=== PATIENT | female | born 1995 | race Caucasian/White ===

== ENCOUNTER 2020-02-18 15:55 | Outpatient (CLI) | payer OTHER, SELFPAY ==
--- NOTE | ~2020-02-18 | US_ITS ---
EXAMINATION: US OB <= 14 weeks fetus EXAM DATE: 02/18/2020 16:35 INDICATION: Dating and confirm viability. First trimester. TECHNIQUE: Pelvic obstetrical transabdominal sonogram was performed by a technologist. There are mu ltiple grayscale and Doppler images available for interpretation. There are no earlier studies of th is gestation for comparison. FINDINGS: Uterus measures 10.6 x 6.5 x 7.7 cm. There is intrauterine gestation sac. pole with heart rate confirmed at 178 beats per minute. The 3.2 cm crown-rump length corresponds to estimated gestational age by ultrasound of 10 weeks 1 day, estimated date of confinement 09/14/2020. Yolk sac is identified. There was suspected to be low-lying placenta without subchorionic hemorrhage. Atten tion to this on follow-up. Ovaries are not identified, no adnexal masses. IMPRESSION: Live intrauterine gestation, age by CRL of 10 weeks 1 day. Low-lying chorion, can be ree valuated in second trimester. Reviewed, dictated and finalized at location A. IMPRESSION: Live intrauterine gestation, age by CRL of 10 weeks 1 day. Low-lyi ng chorion, can be reevaluated in second trimester.
== END 2020-02-18 15:56 | disposition home or self-care (01) ==
LOC: ANHIMG 15:59
PROVIDERS: PCP Family Medicine; Visit Provider Student in an Organized Health Care Education/Training Program
DX: O36.80X0 Pregnancy with inconclusive fetal viability, not applicable or unspecified (principal); O44.41 Low lying placenta NOS or without hemorrhage, first trimester; Z3A.10 10 weeks gestation of pregnancy
CPT/HCPCS: 76801

== ENCOUNTER 2020-04-14 21:38 | Emergency (ER) | payer OTHER, SELFPAY ==
[2020-04-14 21:38] VITALS: BP 131/70; PULSE 109; RESP 16; TEMP 36.6; O2SAT 100
[2020-04-14 22:12] LABS: Add Urine Microscopic? YES; Appearance Urine Clear (Clear); Bilirubin Urine Negative (Negative); Blood Urine Negative (Negative); Color Urine Yellow (Yellow); Glucose Urine UA Negative (Negative); Ketones Urine Trace (Negative); Leukocyte Esterase Ur Trace LEU/UL (Negative); Nitrate Urine Negative (Negative); Protein Urine Trace (Negative); Specific Grav Ur 1.015 (1.010-1.020); Urobilinogen Urine 0.2 mg/dL (0.2-1.0); pH Urine 7.5 (5.0-8.0)
[2020-04-14 22:18] LABS: Amorphous Sediment Urine Moderate; Bacteria Urine Trace /hpf; RBC Urine 0-2 /hpf (0-2); Squamous Epithelial Cell Urine Few /hpf (Few)
[2020-04-14 22:19] LABS: Pregnancy On Board Control Positive; Specific Gravity Ur 1.015 (1.010-1.035); Urine Pregnancy Test Positive
--- NOTE | 2020-04-14 22:30 | ED.GENADULT ---
HPI - General Adult General Chief complaint: Back Pain/Injury Stated complaint: L back/side pain Time Seen by Provider: 04/14/20 22:32 Source: patient Mode of arrival: ambulatory Limitations: no limitations History of Present Illness HPI narrative: A 24-year-old female patient 18 weeks 1 para 1 is here in the ER with chief complaints of experiencing some vaginal itching and burning after sexual intercourse a week ago. She has had some urinary symptoms but has not noted any blood or is not reporting any fevers chills or nausea or vomiting. She has not noticed any vaginal discharge or bleeding. patient states that she walked to a significant distance this evening to her friend's house and back and around 8:00 p.m. tonight started experiencing pain in the left side mostly in the lower of back and around into her left groin. The pain was not associated with any vomiting or any radiation into the groin area. The pain has been persistent and the patient did drive herself here. She did not take any medication at home to relieve the pain. Patient's OB history has been unremarkable till now and she is under care of a activity specialist at [facility]. Related Data Home Medications Medication Instructions Recorded Confirmed vits 75-iron 28 mg-folic 1 pkg PO DAILY 02/04/20 04/14/20 acid 800 mcg-omega-3 oral combo pack Allergies Allergy/AdvReac Type Severity Reaction Status Date / Time No Known Allergies Allergy Verified 02/04/20 10:16 Review of Systems Review of Systems: All systems reviewed & are unremarkable except as noted in HPI and below Constitutional: Constitutional: Reports as per HPI, Denies chills, Denies fatigue, Denies fever(s) and Denies weakness Cardiovascular: Cardiovascular: Denies chest pain Respiratory: Respiratory: Denies chest congestion, Denies dyspnea and Denies wheezing Gastrointestinal: Gastrointestinal: Denies abdominal pain, Reports constipation (Last BM 1 day ago.), Denies diarrhea, Denies nausea and Denies vomiting Genitourinary: Genitourinary: Denies abnormal vaginal bleeding, Denies hematuria, Denies nocturia, Denies dysuria, Denies pelvic pain, Denies urinary incontinence and Denies vaginal discharge Musculoskeletal: Musculoskeletal: Reports no additional musculoskeletal complaints Integumentary/Breasts: Skin/Breast: Reports system reviewed and no additional complaints, except as docu Psychiatric: Psychiatric: Reports no additional psychiatric complaints PMFSH Past Medical History Medical History (Updated 04/14/20 @ 23:01 by Belinda Beaver MD) Anxiety Depression Surgical History Surgical History (Updated 04/14/20 @ 22:52 by Belinda Beaver MD) No history of previous surgery Social History Social History Smoking status: Current every day smoker Alcohol intake: never Substance use: current Substance use type: marijuana Exam Const: General: healthy appearing, no acute distress and alert; No ill appearing Nutritional Appearance: well nourished Orientation/consciousness: patient oriented x3 Limitations: No physical limitations HENMT: Head: normal to inspection Eyes: Conjunctivae: conjunctivae normal Pupils: Equal, round and reactive pupils present EOM: EOMs intact bilaterally Neck: Neck: normal visual inspection Chest: Chest palpation & inspection: normal inspection of the chest and no tenderness Resp: Effort & Inspection: normal respiratory effort, no retractions and no use of accessory muscles Auscultation: clear to auscultation bilaterally and no wheezes Cardio: Rate: regular rate Rhythm: regular rhythm Heart sounds: no murmurs GI: GI Palp: Yes Soft to palpation and No Tenderness to palpation present (GI) Auscultation: normal bowel sounds Other: minimal tenderness of the left abdominal wall. : General: Yes bladder normal to palpation and Yes no CVA tenderness Ot
[2020-04-14] MEDS: ACETAMINOPHEN 325 MG TABLET 650 MG PO (22:47)
[2020-04-14 23:02] VITALS: PULSE 90; RESP 14; O2SAT 100
== END 2020-04-14 23:03 | disposition home or self-care (01) ==
PROVIDERS: Emergency Provider Emergency Medicine; PCP Family Medicine
DX: R10.9 Unspecified abdominal pain (principal); F41.9 Anxiety disorder, unspecified
CPT/HCPCS: 81001; 81025; 87491; 87591; 99283; 99284; A9270

== ENCOUNTER 2020-04-15 05:44 | Emergency (ER) | payer OTHER, SELFPAY ==
--- NOTE | ~2020-04-15 | US_ITS ---
EXAMINATION: US renal BI, US pelvic limited DATE: 04/15/2020 08:21 INDICATION: Left flank pain during . TECHNIQUE: Multiple ultrasound grayscale images of the kidneys, bladder and bilateral ovaries were ob tained. COMPARISON: None. FINDINGS: The right kidney measures 12.6 x 5.2 x 6.3 cm. The left kidney measures 11.6 x 7.4 x 5.5 cm. The kidn eys demonstrate normal echogenicity. There is mild bilateral hydronephrosis. Normal arterial resistiv e indices at both kidneys measuring 0.56-0.66 at the right kidney and 0.62-0.68 at the left kidney. N o stones identified. The bladder is normal with bilateral ureteral jets on color Doppler. No free flu id in the pelvis. The right ovary measures 3.5 x 1.3 x 2.5 cm and the left ovary measures 4.4 x 2.2 x 3.6 cm. Vascular flow is identified at both ovaries on color Doppler. IMPRESSION: 1. Mild bilateral hydronephrosis. 2. Normal bilateral ovaries. Reviewed, dictated and finalized at location A. IMPRESSION: 1. Mild bilateral hydronephrosis. 2. Normal bilateral ovaries.
[2020-04-15 05:54] VITALS: BP 123/76; PULSE 80; RESP 18; TEMP 36.6; O2SAT 100
--- NOTE | 2020-04-15 06:07 | ED.GENADULT ---
HPI - General Adult General Chief complaint: Abdominal Pain <Belinda Beaver MD - Last Filed: 04/15/20 06:48> Stated complaint: Left Side Pain <Belinda Beaver MD - Last Filed: 04/15/20 06:48> Time Seen by Provider: 04/15/20 06:15 <Belinda Beaver MD - Last Filed: 04/15/20 06:48> History of Present Illness HPI narrative: 24-year-old female patient 18 weeks , 1 para 1 returns again this morning with same complaint of pain in the back that started yesterday. She was seen last night and her urinalysis was clear. She was given a tablet of Tylenol and apparently for a brief while she felt better but then continued to have pain. She denies any fever or chills or vomiting associated with the pain. She states that the pain was in the left flank and for a brief while it radiated to the right back area and then is mostly in the left side. Patient points out to the general left side of her abdomen and back and also finds it more comfortable to lay on the right side. She denies any vaginal bleeding or discharge. She denies any urinary symptoms at this time. The pain has been an ache and so has been persistent all night long compared yesterday the patient admitted to walking a long distance of prior to development of pain however she has been resting all night long. <Belinda Baever MD - Last Filed: 04/15/20 06:48> Related Data Home medications: Home Medications Medication Instructions Recorded Confirmed vits 75-iron 28 mg-folic 1 pkg PO DAILY 02/04/20 04/15/20 acid 800 mcg-omega-3 oral combo pack <Belinda Beaver MD - Last Filed: 04/15/20 06:48> Allergies/adverse reactions: Allergies Allergy/AdvReac Type Severity Reaction Status Date / Time No Known Allergies Allergy Verified 02/04/20 10:16 <Belinda Beaver MD - Last Filed: 04/15/20 06:48> Review of Systems Review of Systems: All systems reviewed & are unremarkable except as noted in HPI and below <Belinda Beaver MD - Last Filed: 04/15/20 06:48> Constitutional: Constitutional: Denies chills, Denies fatigue and Denies fever(s) <Belinda Beaver MD - Last Filed: 04/15/20 06:48> ENT: Denies dizziness <Belinda Beaver MD - Last Filed: 04/15/20 06:48> Cardiovascular: Cardiovascular: Denies chest pain <Belinda Beaver MD - Last Filed: 04/15/20 06:48> Respiratory: Respiratory: Denies cough and Denies dyspnea <Belinda Beaver MD - Last Filed: 04/15/20 06:48> Gastrointestinal: Gastrointestinal: Denies abdominal pain, Denies bloating, Denies constipation, Denies diarrhea, Denies nausea and Denies vomiting <Belinda Beaver MD - Last Filed: 04/15/20 06:48> Genitourinary: Genitourinary: Denies abnormal vaginal bleeding, Denies hematuria, Denies nocturia, Denies dysuria, Denies pelvic pain, Reports flank pain, Denies urinary incontinence and Denies vaginal discharge <Belinda Beaver MD - Last Filed: 04/15/20 06:48> Neurologic: Denies weakness <Belinda Beaver MD - Last Filed: 04/15/20 06:48> Allergic/Immunologic: Allergic/Immunologic: Reports no additional allergic/immunologic complaints <Belinda Beaver MD - Last Filed: 04/15/20 06:48> PMF Past Medical History Medical History: Medical History (Updated 04/15/20 @ 08:49 by Leo Mcnulty MD) Anxiety Depression <Belinda Beaver MD - Last Filed: 04/15/20 06:48> Surgical History Surgical History: Surgical History (Updated 04/14/20 @ 22:52 by Belinda Beaver MD) No history of previous surgery <Belinda Beaver MD - Last Filed: 04/15/20 06:48> Social History Social History: Social History (Updated 04/15/20 @ 06:35 by Belinda Beaver MD) Smoking status: Current some day smoker Alcohol intake: never Substance use: current Substance use type: marijuana <Belinda Beaver MD - Last Filed: 04/15/20 06:48> Exam Const: General: healthy appearing and alert <Belinda Beaver MD - Last Filed: 04/15/20 06:48> Nutritional Appearance: well nourished <Belinda
[2020-04-15 06:30] LABS: Add Urine Microscopic? YES; Appearance Urine Sl Cloudy (Clear); Bilirubin Urine Negative (Negative); Blood Urine Negative (Negative); Color Urine Yellow (Yellow); Glucose Urine UA Negative (Negative); Ketones Urine Negative (Negative); Leukocyte Esterase Ur Negative (Negative); Nitrate Urine Negative (Negative); Protein Urine Negative (Negative); Urobilinogen Urine 0.2 mg/dL (0.2-1.0)
[2020-04-15 06:30] LABS: Basophils Absolute Auto 0.04 K/mm3 (0.00-0.10); Basophils Percent Auto 0.3 % (0.0-1.0); Eosinophils Percent Auto 0.7 % (1.0-6.0); Hematocrit 34.5 % (35.0-49.0); Immature Granulocyte Absolute 0.08 K/mm3 (0.00-0.00); Immature Granulocyte Percent A 0.6 % (0.0-0.0); Lymphocytes Absolute Auto 1.74 K/mm3 (1.10-4.50); Lymphocytes Percent Auto 12.6 % (18.0-42.0); Mean Corpuscular HGB Conc 34.8 g/dL (32.0-36.0); Mean Corpuscular Volume 80.4 fL (78.0-102.0); Mean Platelet Volume 9.5 fl (9.2-11.8); Monocytes Absolute Auto 0.85 K/mm3 (0.10-0.90); Monocytes Percent Auto 6.2 % (2.0-11.0); Neutrophils Percent Auto 79.6 % (50.0-70.0); Platelet Count Result 245 K/mm3 (150-420); Red Blood Count 4.29 M/mm3 (4.20-5.40); Red Cell Distribution Width 14.4 % (11.6-14.4); White Blood Count 13.8 K/mm3 (4.8-10.8)
[2020-04-15 06:41] LABS: Amorphous Sediment Urine Moderate; Bacteria Urine 1+ /hpf; RBC Urine 0-2 /hpf (0-2); Squamous Epithelial Cell Urine Few /hpf (Few); WBC Urine 0-3 /hpf (0-3)
[2020-04-15 06:46] LABS: Alanine Aminotransferase 13 U/L (14-59); Alkaline Phosphatase 49 U/L (46-116); Anion Gap 10.3 mmol/L (7-16); Aspartate Amino Transferase 15 U/L (15-37); Bilirubin,Total 0.1 mg/dL (0.00-1.00); Blood Urea Nitrogen 9 mg/dL (7-18); Calcium 8.8 mg/dL (8.5-10.1); Carbon Dioxide 28 mmol/L (21-32); Chloride 100 mmol/L (98-108); Estimated CRCL calculation 76 ml/min; Estimated Glomerular Filt Rate > 60; Glucose 106 mg/dL (70-99); Osmolality Calculated 278 mOsm/kg (285-295); Potassium 3.3 mmol/L (3.5-5.1); Sodium 135 mmol/L (136-145); Total Protein 6.4 g/dL (6.4-8.2)
--- NOTE | 2020-04-15 06:47 | PC.NURSE ---
Pt. offered HIV testing, pt. refused and refusal form signed.
[2020-04-15] MEDS: POTASSIUM BICARBONATE 25 MEQ TABEF 50 MEQ PO (07:34)
[2020-04-15 08:55] VITALS: BP 125/75; PULSE 75; RESP 18; TEMP 36.6; O2SAT 100
== END 2020-04-15 09:10 | disposition home or self-care (01) ==
PROVIDERS: Emergency Medicine; Emergency Provider Emergency Medicine; PCP Family Medicine
DX: R10.9 Unspecified abdominal pain (principal)
CPT/HCPCS: 36415; 76775; 76857; 80053; 81001; 85025; 99283; 99284; A9270

== ENCOUNTER 2020-05-15 13:44 | Observation (INO) | payer OTHER, SELFPAY ==
--- NOTE | ~2020-05-15 | XR_ITS ---
EXAMINATION: XR chest 1V portable DATE: 05/15/2020 14:42 INDICATION: Shortness of breath. TECHNIQUE: A single frontal view of the chest was obtained. COMPARISON: None. FINDINGS: The chest demonstrates clear lungs without pneumonia, pleural effusion, or pneumothorax. Th e heart size is normal. IMPRESSION: 1. No acute cardiopulmonary disease. Reviewed, dictated and finalized at location A.
--- NOTE | 2020-05-15 14:00 | PC.NURSE ---
FHT's 170 BPM, Maternal HR 142.
--- NOTE | 2020-05-15 14:06 | PC.NURSE ---
nigel perez from OB came to eval pt . FHT's 165-170, strong.
[2020-05-15 14:07] VITALS: BP 104/73; PULSE 130; RESP 24; TEMP 38.1; O2SAT 99
--- NOTE | 2020-05-15 14:10 | ED.GENADULT ---
HPI - General Adult General Chief complaint: SOCIAL MEDIA INTERN Stated complaint: fever/23 weeks preg/body aches Time Seen by Provider: 05/15/20 14:08 History of Present Illness HPI narrative: Reportedly sent in by OB for COVID testing. She reports feeling very ill. She has had fever, diffuse bodyaches, headache, sinus pressure. She is 22 weeks . No known sick contacts. Related Data Home Medications Medication Instructions Recorded Confirmed vits 75-iron 28 mg-folic 1 pkg PO DAILY 02/04/20 05/15/20 acid 800 mcg-omega-3 oral combo pack Allergies Allergy/AdvReac Type Severity Reaction Status Date / Time No Known Allergies Allergy Verified 02/04/20 10:16 Review of Systems Review of Systems: All systems reviewed & are unremarkable except as noted in HPI and below Constitutional: Constitutional: Reports chills, Reports fatigue and Reports fever(s) Eyes: Eyes: Denies change in vision ENT: Denies sore throat Cardiovascular: Cardiovascular: Denies chest pain Respiratory: Respiratory: Reports chest congestion and Reports dyspnea Gastrointestinal: Gastrointestinal: Reports nausea Genitourinary: Genitourinary: Denies dysuria and Reports flank pain Musculoskeletal: Musculoskeletal: Reports back pain and Reports myalgias Integumentary/Breasts: Skin/Breast: Denies rash Neurologic: Denies weakness PMFSH Past Medical History Medical History Anxiety Depression Surgical History Surgical History No history of previous surgery Family History Family History Grandparent Carcinoma of colon Diabetes mellitus Acute myocardial infarction Cerebrovascular accident Father Hypertension Cerebrovascular accident Social History Social History Smoking status: Current every day smoker Tobacco type: cigarettes Second hand tobacco smoke exposure: Yes Alcohol intake: former Substance use: never Substance use type: marijuana Gender identity (if verbalized by the patient): Female Sexual Orientation (if Verbalized by the Patient): Straight or Heterosexual Spiritual care concerns: No Exam Const: General: healthy appearing, no acute distress, alert and ill appearing acutely Orientation/consciousness: patient oriented x3 HENMT: Head: normal to inspection Neck: Neck: normal visual inspection and no lymphadenopathy Chest: Chest palpation & inspection: no tenderness Resp: Effort & Inspection: normal respiratory effort Auscultation: clear to auscultation bilaterally, no rales, no rhonchi and no wheezes Cardio: Jugular venous distension: no JVD Rate: tachycardic Rhythm: regular rhythm Heart sounds: no murmurs GI: Inspection: non-distended GI Palp: Yes Soft to palpation and No Tenderness to palpation present (GI) Skin: General skin exam: normal color Neuro: General: patient oriented x3 and moves all extremities Speech: normal speech Extrem: General: no edema Psych: Appearance: well kempt Affect: normal affect Course Vital Signs Vital signs: Vital Signs Temperature 38.1 C H 05/15/20 14:07 Pulse Rate 130 H 05/15/20 14:07 Respiratory Rate 24 H 05/15/20 14:07 Blood Pressure 104/73 05/15/20 14:07 Pulse Oximetry 99 05/15/20 14:07 Temperature 37.7 C H 05/15/20 16:46 Pulse Rate 102 H 05/15/20 16:46 Respiratory Rate 35 H 05/15/20 16:46 Blood Pressure 99/59 L 05/15/20 16:46 Pulse Oximetry 99 05/15/20 16:46 Medical Decision Making MDM Narrative Medical decision making narrative: She meets sepsis criteria and appears ill, although not acute toxic. UA is concerning for UTI. This could be pyelo. Can't fully rule out other causes. CXR negative. COVID testing sent. Case discussed with Dr. Brown. He will admit for observation.
[2020-05-15 14:49] LABS: Basophils Percent Auto 0.1 % (0.2-1.2); Hematocrit 32.3 % (37.0-47.0); Hemoglobin 11.3 g/dL (12.0-15.0); Immature Granulocyte Absolute 0.31 K/mm3 (0.00-0.031); Immature Granulocyte Percent A 1.5 % (0-0.5); Lymphocytes Absolute Auto 0.88 K/mm3 (0.9-3.2); Lymphocytes Percent Auto 4.2 % (18.3-44.2); Mean Corpuscular Hemoglobin 27.7 pg (26-34); Mean Corpuscular Volume 79.2 fl (80-100); Mean Platelet Volume 9.9 fl (7.4-10.4); Monocytes Absolute Auto 1.8 K/mm3 (0.1-0.6); Monocytes Percent Auto 8.5 % (2.6-8.5); Neutrophils Absolute Auto 17.9 K/mm3 (1.3-6.7); Neutrophils Percent Auto 85.7 % (45.5-73.1); Platelet Count Result 219 k/mm3 (150-375); Red Blood Count 4.08 M/mm3 (4.2-5.4); Red Cell Distribution Width 14.4 % (11.5-14.5); White Blood Count 20.8 K/mm3 (4.5-10.0)
[2020-05-15 14:54] LABS: Add Urine Microscopic? YES; Appearance Urine Clear (Clear); Bacteria Urine Trace /hpf; Bilirubin Urine Negative (Negative); Color Urine Yellow (Yellow); Glucose Urine UA Negative (Negative); Ketones Urine Negative (Negative); Leukocyte Esterase Ur 2+ LEU/UL (Negative); Mucus Urine Rare /lpf; Nitrate Urine Negative (Negative); Protein Urine 1+ mg/dL (Negative); RBC Urine 0-2 /hpf (0-2); Specific Grav Ur 1.012 (1.001-1.035); Squamous Epithelial Cell Urine Occasional /hpf (Few); Urobilinogen Urine Negative mg/dL (<2.0); WBC Urine 31-50 /hpf
[2020-05-15 14:58] LABS: INR 1.1; Prothrombin Time 14.2 Seconds (11.1-14.7)
[2020-05-15 14:59] LABS: Partial Thromboplastin Time 34.7 SECONDS (22.3-36.8)
[2020-05-15 15:03] LABS: Blood Urine Negative (Negative)
[2020-05-15 15:13] LABS: Alanine Aminotransferase 8 U/L (4-35); Albumin Level 3.3 g/dL (3.5-5.1); Alkaline Phosphatase 88 U/L (38-126); Anion Gap 10.4 mmol/L (7-16); Aspartate Amino Transferase 16 U/L (14-36); Bilirubin,Total 0.2 mg/dL (0.2-1.3); Blood Urea Nitrogen 5 mg/dL (7-17); Calcium 8.4 mg/dL (8.4-10.2); Carbon Dioxide 21 mmol/L (22-30); Chloride 101 mmol/L (98-107); Estimated CRCL calculation 127 ml/min; Estimated Glomerular Filt Rate > 60; Glucose 113 mg/dL (65-105); Potassium 3.4 mmol/L (3.4-5.0); Sodium 129 mmol/L (137-145)
[2020-05-15 15:14] LABS: CRP 24.9 mg/dL (<1.0)
[2020-05-15] MEDS: SODIUM CHLORIDE 0.9% IV 1,000 ML 999 ML IV CONT (15:29)
[2020-05-15 16:06] VITALS: BP 102/62; PULSE 111; RESP 33; TEMP 37.9; O2SAT 100
--- NOTE | 2020-05-15 16:19 | ECG_ITS ---
Measurements Intervals [place] Rate: 101 P: 53 MT: 147 QRS: 61 QRSD: 96 T: 6 QT: 336 QTc: 435 Interpretive Statements SINUS TACHYCARDIA POSSIBLE LEFT ATRIAL ENLARGEMENT BORDERLINE ST-T WAVE ABNORMALITY- ANTEROLAT/INF LEADS BASELINE ARTIFACT- I, II, III, AVR, AVF, V2-V6 BORDERLINE ECG Electronically Signed On 05-15-2020 19:25:22 CDT by Tony Lima D.O.
[2020-05-15 16:46] VITALS: BP 99/59; PULSE 102; RESP 35; TEMP 37.7; O2SAT 99
--- NOTE | 2020-05-15 17:18 | ADMGEN ---
This patient, Miri Kemp, was admitted to 3 [facility] Surg Room 326-01. Patient/family oriented to hospital policies and general routines including ID bracelet, bed and alarms, visiting hours, pain management, procedures, bathroom and other care routines, personal items, smoking policy, room service/diet, and visiting hours. Valuables list has been completed. Information on how to activate the Rapid Response Team has been discussed. Patient/Family are encouraged to report perceived risks to care and to ask questions if they do not understand what they are told or what they should do.
[2020-05-15 18:00] VITALS: BP 104/57; PULSE 101; PULSE 102; RESP 18; TEMP 36.8; O2SAT 100
[2020-05-15] MEDS: LACTATED RINGERS 1,000 ML 125 ML IV CONT (19:20)
[2020-05-15 20:00] VITALS: PULSE 101
[2020-05-15 21:59] VITALS: BP 119/61; PULSE 102; RESP 16; TEMP 36.5; O2SAT 100
[2020-05-16] VITALS (9 sets, daily range): BP systolic 96–110; BP diastolic 46–58; PULSE 88–109; RESP 16–18; TEMP 36.8–37.6; O2SAT 98–99
[2020-05-16] MEDS: LACTATED RINGERS 1,000 ML 125 ML IV CONT (04:09)
[2020-05-16 06:49] LABS: Basophils Absolute Auto 0.1 K/mm3 (0.0-0.1); Basophils Percent Auto 0.3 % (0.2-1.2); Eosinophils Percent Auto 0.1 % (0-4.4); Hematocrit 28.4 % (37.0-47.0); Hemoglobin 9.9 g/dL (12.0-15.0); Immature Granulocyte Absolute 0.25 K/mm3 (0.00-0.031); Immature Granulocyte Percent A 1.4 % (0-0.5); Lymphocytes Absolute Auto 0.91 K/mm3 (0.9-3.2); Lymphocytes Percent Auto 5.2 % (18.3-44.2); Mean Corpuscular HGB Conc 34.9 g/dl (32-36); Mean Corpuscular Volume 80.2 fl (80-100); Mean Platelet Volume 10.2 fl (7.4-10.4); Monocytes Absolute Auto 1.5 K/mm3 (0.1-0.6); Monocytes Percent Auto 8.3 % (2.6-8.5); Neutrophils Absolute Auto 14.8 K/mm3 (1.3-6.7); Neutrophils Percent Auto 84.7 % (45.5-73.1); Platelet Count Result 183 k/mm3 (150-375); Red Blood Count 3.54 M/mm3 (4.2-5.4); Red Cell Distribution Width 14.6 % (11.5-14.5); White Blood Count 17.5 K/mm3 (4.5-10.0)
[2020-05-16 07:01] LABS: Alanine Aminotransferase 7 U/L (4-35); Albumin Level 2.7 g/dL (3.5-5.1); Alkaline Phosphatase 82 U/L (38-126); Anion Gap 9.1 mmol/L (7-16); Aspartate Amino Transferase 14 U/L (14-36); Bilirubin,Total 0.1 mg/dL (0.2-1.3); Blood Urea Nitrogen 6 mg/dL (7-17); Carbon Dioxide 22 mmol/L (22-30); Chloride 105 mmol/L (98-107); Estimated CRCL calculation 127 ml/min; Estimated Glomerular Filt Rate > 60; Glucose 102 mg/dL (65-105); Potassium 3.1 mmol/L (3.4-5.0); Sodium 133 mmol/L (137-145)
--- NOTE | 2020-05-16 07:29 | PM.IMHP ---
H&P: HPI History of Present Illness Date/Time: 05/16/20 07:29 Chief complaint: UTI Narrative: Miri Kemp is a 24 year old female at 22w6d admitted for suspected pyelonephritis. Pt states she has acute onset Right hip pain 48 hrs ago. She states she had a day of dysuria prior to that. She states the pain increased and started to radiate around her lower back. She states the pain is constant. She then developed full body myalgias. She felt constant chills and reported a 100.8 degree temp at home. She denies any sick contacts. She denies any SOB, cough, hemoptysis. She denies any diarrhea, constipation, emesis. She endorses good movement. She denies any vaginal bleeding or leakage of fluid. Her has otherwise been uncomplicated. Review of Systems Constitutional: Constitutional: Reports as per HPI [facility] Past Medical History Medical History Anxiety Depression Surgical History Surgical History No history of previous surgery Family History Family History Grandparent Carcinoma of colon Diabetes mellitus Acute myocardial infarction Cerebrovascular accident Father Hypertension Cerebrovascular accident Social History Social History Smoking status: Current every day smoker Tobacco type: cigarettes Second hand tobacco smoke exposure: Yes Alcohol intake: former Substance use: never Substance use type: marijuana Gender identity (if verbalized by the patient): Female Sexual Orientation (if Verbalized by the Patient): Straight or Heterosexual Spiritual care concerns: No Meds Home Medications and Allergies Home Medications Medication Instructions Recorded Confirmed Type vits 75-iron 28 mg-folic 1 pkg PO DAILY 02/04/20 05/15/20 History acid 800 mcg-omega-3 oral combo pack hydrocodone-acetaminophen [[place]] 1 tablet PO Q6H PRN #14 tablet 04/15/20 05/15/20 Rx Allergies Allergy/AdvReac Type Severity Reaction Status Date / Time No Known Allergies Allergy Verified 02/04/20 10:16 Vital Signs Vital Signs - 24 hr 05/15/20 14:07 05/15/20 16:06 05/15/20 16:46 Temperature 38.1 C H 37.9 C H 37.7 C H Pulse Rate 130 H 111 H 102 H Respiratory Rate 24 H 33 H 35 H Blood Pressure 104/73 102/62 99/59 L Pulse Oximetry 99 100 99 05/15/20 18:00 05/15/20 20:00 05/15/20 21:59 Temperature 36.8 C 36.5 C Pulse Rate 101 H 101 H 102 H Respiratory Rate 18 16 Blood Pressure 104/57 L 119/61 Pulse Oximetry 100 100 05/16/20 00:00 05/16/20 02:00 05/16/20 04:00 Temperature 37.6 C H Pulse Rate 108 H 104 H 95 Respiratory Rate 16 Blood Pressure 107/50 L Pulse Oximetry 98 05/16/20 04:15 05/16/20 06:00 05/16/20 06:55 Temperature 37.1 C 36.8 C Pulse Rate 88 Respiratory Rate 16 Blood Pressure 96/46 L 100/50 L Pulse Oximetry 99 Exam Const: General: comfortable and no acute distress Eyes: General: appearance normal, both eyes and all related structures Neck: Neck: supple and no JVD Lymphatic: lymphadenopathy not noted Resp: Effort & Inspection: normal respiratory effort Auscultation: clear to auscultation bilaterally Cardio: Rate: tachycardic Rhythm: regular rhythm GI: Inspection: non-distended GI Palp: Yes Soft to palpation, No Firmness to palpation present (GI), No Tenderness to palpation present (GI) and No Guarding due to palpation present (GI) Auscultation: normal bowel sounds Other: Gravid, fundal height equal to dates : General: Yes CVA tenderness on the right Skin: General skin exam: normal color Neuro: General: gait normal Speech: normal speech Extrem: General: normal to inspection Psych: Mental Status: mental status grossly normal Affect: normal affect H&P: Results Labs Labs: S
--- NOTE | 2020-05-16 09:40 | PM.DS ---
DS: Admitting Diagnosis Admitting Diagnosis Admitting Diagnosis: Infections of kidney in , unspecified trimester DS: Summary Hospital Course Reason for hospitalization: 24 yo G1 at 22w6d who was admitted for pyelonephritis. pt reports improvement in symptoms this AM. she was advised to stay another day in the hospital for IV antibiotic treatment and observation. Pt requests to be discharged today. She is unwilling to stay given she cannot have any visitors. Patient has remained afebrile overnight. Leukocytosis is improving. Time Spent with Patient Time attestation: Total time spent providing and/or coordinating discharge services: Exam Const: General: comfortable and no acute distress Resp: Effort & Inspection: normal respiratory effort Auscultation: clear to auscultation bilaterally Cardio: Rate: tachycardic Rhythm: regular rhythm GI: Inspection: non-distended GI Palp: Yes Soft to palpation, No Firmness to palpation present (GI) and No Tenderness to palpation present (GI) Other: gravid, fundal height equal to dates Skin: General skin exam: normal color Neuro: General: gait normal Extrem: General: normal to inspection DS: Data Data Completed and Pending Labs on day of discharge: Labs from last 24 hours 05/16/20 05/16/20 05/15/20 06:31 06:31 14:36 WBC 17.5 H RBC 3.54 L Hgb 9.9 L Hct 28.4 L MCV 80.2 MCH 28.0 MCHC 34.9 RDW 14.6 H Plt Count 183 MPV 10.2 Immature Gran % (Auto) 1.4 H Neut % (Auto) 84.7 H Lymph % (Auto) 5.2 L [place] % (Auto) 8.3 Eos % (Auto) 0.1 Baso % (Auto) 0.3 Lymph # (Auto) 0.91 [place] # (Auto) 1.5 H Eos # (Auto) 0.0 Baso # (Auto) 0.1 Abs Immat Gran (auto) 0.25 H Absolute Neuts (auto) 14.8 H Absolute Nucleated RBC 0.0 Nucleated RBC % 0.0 PT INR APTT Sodium 133 L Potassium 3.1 L Chloride 105 Carbon Dioxide 22 Anion Gap 9.1 BUN 6 L Creatinine 0.60 L Estim Creat Clear Calc 127 Estimated GFR > 60 Glucose 102 Lactic Acid Calcium 8.0 L Total Bilirubin 0.1 L AST 14 ALT 7 Alkaline Phosphatase 82 C-Reactive Protein Total Protein 6.0 L Albumin 2.7 L Urine Color Yellow Urine Appearance Clear Urine pH 7.0 Ur Specific [place] 1.012 Urine Protein 1+ H Urine Glucose (UA) Negative Urine Ketones Negative Ur Blood (Man) Negative Urine Nitrate Negative Urine Bilirubin Negative Urine Urobilinogen Negative Leukocyte Esterase Rfl 2+ H Urine RBC 0-2 Urine WBC 31-50 H Ur Squamous Epith Cells Occasional Urine Bacteria Trace Urine Mucus Rare SARS-CoV-2 RNA (RT-PCR) 05/15/20 05/15/20 05/15/20 14:32 14:32 14:32 WBC RBC Hgb Hct MCV MCH MCHC RDW Plt Count MPV Immature Gran % (Auto) Neut % (Auto) Lymph % (Auto) [place] % (Auto) Eos % (Auto) Baso % (Auto) Lymph # (Auto) [place] # (Auto) Eos # (Auto) Baso # (Auto) Abs Immat Gran (auto) Absolute Neuts (auto) Absolute Nucleated RBC Nucleated RBC % PT INR APTT Sodium 129 L Potassium 3.4 Chloride 101 Carbon Dioxide 21 L Anion Gap 10.4 BUN 5 L Creatinine 0.60 L Estim Creat Clear Calc 127 Estimated GFR > 60 Glucose 113 H Lactic Acid 1.0 Calcium 8.4 Total Bilirubin 0.2 AST 16 ALT 8 Alkaline Phosphatase 88 C-Reactive Protein 24.9 H Total Protein 6.0 L Albumin 3.3 L Urine Color Urine Appearance Urine pH Ur Specific [place] Urine Protein Urine Glucose (UA) Urine Ketones Ur Blood (Man) Urine Nitrate Urine Bilirubin Urine Urobilinogen Leukocyte Esterase Rfl Urine RBC Urine WBC Ur Squamous Epith Cells Urine Bacteria Urine Mucus SARS-CoV-2 RNA (RT-PCR) Pending 05/15/20 05/15/20 14:32 14:32 WBC 20.8 H RBC 4.08 L Hgb 11.3 L Hc
[2020-05-16 18:31] LABS: SARS-CoV-2 RNA PCR Negative
== END 2020-05-16 12:40 | disposition home or self-care (01) ==
LOC: ANHED 15:30 → ANH3MEDSUR 16:21
PROVIDERS: Admitting Provider Student in an Organized Health Care Education/Training Program; Emergency Provider Emergency Medicine; PCP Family Medicine; Visit Provider Student in an Organized Health Care Education/Training Program
DX: Z03.818 Encounter for observation for suspected exposure to other biological agents ruled out (principal); O23.00 Infections of kidney in pregnancy, unspecified trimester; N12 Tubulo-interstitial nephritis, not specified as acute or chronic; O09.90 Supervision of high risk pregnancy, unspecified, unspecified trimester; Z3A.22 22 weeks gestation of pregnancy; F17.210 Nicotine dependence, cigarettes, uncomplicated
CPT/HCPCS: 36415; 71045; 80053; 81001; 83605; 85025; 85610; 85730; 86140; 87040; 87077; 87086; 87088; 87635; 93005; 96361; 96365; 96367; 96374; 96376; 99285; C9803; G0378; G0379; J0131; J0696; J7030; J7120; U0003

== ENCOUNTER 2020-06-16 12:13 | Outpatient (RCR) | payer OTHER, SELFPAY ==
[2020-06-19] MEDS: RHO(D) IMMUNE GLOBULIN 300 MCG SYRINGE IM (16:32)
== END 2020-09-14 23:59 | disposition home or self-care (01) ==
LOC: ANHLAB 12:13
PROVIDERS: PCP Family Medicine; Visit Provider Obstetrics & Gynecology
DX: Z29.13 Encounter for prophylactic Rho(D) immune globulin (principal); O36.0990 Maternal care for other rhesus isoimmunization, unspecified trimester, not applicable or unspecified; Z3A.00 Weeks of gestation of pregnancy not specified
CPT/HCPCS: 36415; 85461; 90384; 96372; J2790

== ENCOUNTER 2020-09-08 15:17 | Outpatient (CLI) | payer OTHER, SELFPAY ==
--- NOTE | 2020-09-08 15:40 | PM.OBTRLD ---
OB - Triage/Final Diagnosis Visit Information Date of evaluation: 09/08/20 Reason for evaluation: decreased movement and other (htn)
[2020-09-08 16:00] VITALS: BP 118/64; PULSE 65
[2020-09-08 16:02] LABS: Basophils Absolute Auto 0.1 K/mm3 (0.0-0.1); Basophils Percent Auto 0.5 % (0.2-1.2); Eosinophils Absolute Auto 0.2 K/mm3 (0-0.3); Eosinophils Percent Auto 1.9 % (0-4.4); Hematocrit 30.1 % (37.0-47.0); Hemoglobin 9.8 g/dL (12.0-15.0); Immature Granulocyte Absolute 0.11 K/mm3 (0.00-0.031); Immature Granulocyte Percent A 1.1 % (0-0.5); Lymphocytes Absolute Auto 2.08 K/mm3 (0.9-3.2); Lymphocytes Percent Auto 20.9 % (18.3-44.2); Mean Corpuscular HGB Conc 32.6 g/dl (32-36); Mean Corpuscular Hemoglobin 24.5 pg (26-34); Mean Corpuscular Volume 75.3 fl (80-100); Mean Platelet Volume 10.7 fl (7.4-10.4); Monocytes Absolute Auto 0.6 K/mm3 (0.1-0.6); Monocytes Percent Auto 5.9 % (2.6-8.5); Neutrophils Absolute Auto 6.9 K/mm3 (1.3-6.7); Neutrophils Percent Auto 69.7 % (45.5-73.1); Platelet Count Result 243 k/mm3 (150-375); Red Cell Distribution Width 15.1 % (11.5-14.5)
[2020-09-08 16:15] VITALS: BP 113/61; PULSE 66
[2020-09-08 16:19] LABS: Alanine Aminotransferase 7 U/L (4-35); Albumin Level 3.3 g/dL (3.5-5.1); Alkaline Phosphatase 155 U/L (38-126); Anion Gap 3 mmol/L (8-16); Aspartate Amino Transferase 18 U/L (14-36); Bilirubin,Total 0.1 mg/dL (0.2-1.3); Blood Urea Nitrogen 6 mg/dL (7-17); Calcium 8.6 mg/dL (8.4-10.2); Carbon Dioxide 24 mmol/L (22-30); Chloride 107 mmol/L (98-107); Estimated Glomerular Filt Rate > 60; Glucose 92 mg/dL (65-105); Potassium 3.5 mmol/L (3.4-5.0); Sodium 134 mmol/L (137-145); Uric Acid 4.8 mg/dL (2.5-7.5)
[2020-09-08 16:22] VITALS: BP 113/61; PULSE 66
== END 2020-09-08 16:25 | disposition home or self-care (01) ==
LOC: ANHOBOP 15:23 → ANHOBPP 15:24
PROVIDERS: PCP Family Medicine; Visit Provider Obstetrics & Gynecology
DX: O36.8190 Decreased fetal movements, unspecified trimester, not applicable or unspecified (principal); Z3A.00 Weeks of gestation of pregnancy not specified
CPT/HCPCS: 36415; 59025; 80053; 84550; 85025; 99199

== ENCOUNTER 2020-09-18 23:11 | Inpatient (IN) | payer OTHER, SELFPAY ==
--- NOTE | 2020-09-18 23:11 | LDADM ---
This patient, Miri Kemp, was admitted to Labor/Delivery/Recovery 103 on 09/18/20 at 23:11. Plans for labor, pain management and were discussed with patient. Patient/family oriented to hospital policies and general routines including ID bracelet, bed and alarms, visiting hours, pain management, procedures, bathroom and other care routines, personal items, smoking policy, room service/diet and guest tray routines, security routines, and visiting hours. Patient/Family are encouraged to report perceived risks to care and to ask questions if they do not understand what they are told or what they should do. See [facility]BI[facility] for further documentation.
[2020-09-18 23:23] VITALS: RESP 20; TEMP 36.8
[2020-09-19] VITALS (297 sets, daily range): BP systolic 83–175; BP diastolic 31–150; PULSE 54–258; RESP 18–28; TEMP 36.2–37.7; O2SAT 82–100; BMI 36.9
[2020-09-19 00:10] LABS: Basophils Absolute Auto 0.1 K/mm3 (0.0-0.1); Basophils Percent Auto 0.5 % (0.2-1.2); Eosinophils Absolute Auto 0.1 K/mm3 (0-0.3); Eosinophils Percent Auto 0.9 % (0-4.4); Hematocrit 31.1 % (37.0-47.0); Hemoglobin 10.2 g/dL (12.0-15.0); Immature Granulocyte Absolute 0.27 K/mm3 (0.00-0.031); Immature Granulocyte Percent A 2.1 % (0-0.5); Lymphocytes Absolute Auto 2.83 K/mm3 (0.9-3.2); Mean Corpuscular HGB Conc 32.8 g/dl (32-36); Mean Corpuscular Volume 73.2 fl (80-100); Mean Platelet Volume 10.6 fl (7.4-10.4); Monocytes Percent Auto 7.9 % (2.6-8.5); Neutrophils Absolute Auto 8.6 K/mm3 (1.3-6.7); Neutrophils Percent Auto 66.6 % (45.5-73.1); Platelet Count Result 262 k/mm3 (150-375); Red Blood Count 4.25 M/mm3 (4.2-5.4); Red Cell Distribution Width 15.4 % (11.5-14.5); White Blood Count 12.9 K/mm3 (4.5-10.0)
[2020-09-19] MEDS: fentaNYL CITRATE INJ (*CRX) 100 MCG/2 ML VIAL 50 MCG IV PUSH ×2 (01:00→18:05)
[2020-09-19] MEDS: LACTATED RINGERS 1,000 ML 125 ML IV CONT ×6 (01:01→13:07)
--- NOTE | 2020-09-19 01:03 | WPDANESEPPF ---
Anes - Initial Pre Proc Eval Procedure: labor epidural Date/Time: 09/19/20 01:03 Surgeon: Kosta Hooks MD Pre Op Diagnosis: labor pain Pre Op Diagnosis: Leaking Patient Data Age: 24 Gender: F Height: 1.63 m Weight: 97.7 kg Last Vital Signs Temp 36.8 C 09/18/20 23:23 Pulse 71 09/19/20 00:53 Resp 20 09/18/20 23:23 BP 124/79 09/19/20 00:53 Allergies Allergy/AdvReac Type Severity Reaction Status Date / Time No Known Allergies Allergy Verified 08/25/20 15:39 Home Medications Medication Instructions Recorded Confirmed Type vits 75-iron 28 mg-folic 1 pkg PO DAILY 02/04/20 09/18/20 History acid 800 mcg-omega-3 oral combo pack Laboratory Tests 09/18/20 09/18/20 09/18/20 23:50 23:56 23:56 WBC 12.9 K/mm3 H K/mm3 (4.5-10.0) RBC 4.25 M/mm3 M/mm3 (4.2-5.4) Hgb 10.2 g/dL L g/dL (12.0-15.0) Hct 31.1 % L % (37.0-47.0) MCV 73.2 fl L fl (80-100) MCH 24.0 pg L pg (26-34) MCHC 32.8 g/dl g/dl (32-36) RDW 15.4 % H % (11.5-14.5) Plt Count 262 k/mm3 k/mm3 (150-375) MPV 10.6 fl H fl (7.4-10.4) Immature Gran % (Auto) 2.1 % H % (0-0.5) Neut % (Auto) 66.6 % % (45.5-73.1) Lymph % (Auto) 22.0 % % (18.3-44.2) [place] % (Auto) 7.9 % % (2.6-8.5) Eos % (Auto) 0.9 % % (0-4.4) Baso % (Auto) 0.5 % % (0.2-1.2) Lymph # (Auto) 2.83 K/mm3 K/mm3 (0.9-3.2) [place] # (Auto) 1.0 K/mm3 H K/mm3 (0.1-0.6) Eos # (Auto) 0.1 K/mm3 K/mm3 (0-0.3) Baso # (Auto) 0.1 K/mm3 K/mm3 (0.0-0.1) Abs Immat Gran (auto) 0.27 K/mm3 H K/mm3 (0.00-0.031) Absolute Neuts (auto) 8.6 K/mm3 H K/mm3 (1.3-6.7) Absolute Nucleated RBC 0.0 K/mm3 K/mm3 (0.0-0.012) Nucleated RBC % 0.0 % % (0.0-0.2) Urine Opiates Screen Pending Urine Methadone Screen Pending Ur Barbiturates Screen Pending Ur Phencyclidine Scrn Pending Ur Amphetamine Screen Pending U Benzodiazepines Scrn Pending Urine Cocaine Screen Pending U Cannabinoids Screen Pending RPR Pending Patient hx anesthesia problems: none Family hx anesthesia problems: none PMFSH Past Medical History Medical History (Updated 05/16/20 @ 07:34 by Jared Brown MD) Anxiety Depression Surgical History Surgical History No history of previous surgery Family History Family History Grandparent Diabetes mellitus Acute myocardial infarction Carcinoma of colon Father Hypertension Cerebrovascular accident Social History Social History Years smoked: 8 Smoking status: Current every day smoker Tobacco type: cigarettes Second hand tobacco smoke exposure: Yes Alcohol intake: former Substance use: never Substance use type: marijuana Gender identity (if verbalized by the patient): Female Spiritual care concerns: No Anes - Eval Final PreProcedure Day of Procedure 09/19/20 01:03 Patient weight: obese ASA classification: II Anesthesia type and monitoring: regional epidural Informed Consent: The patient's anesthetic plan and its attendant risks and benefits were discussed with the patient/family/POA. Questions were solicited and answers provided to the satisfaction of the patient/family/POA.
[2020-09-19 01:32] LABS: Barbiturate Screen Urine Negative (Negative); Benzodiazepines Screen Urine Negative (Negative)
[2020-09-19 01:36] LABS: Amphetamine Screen Urine Negative (Negative); Cannabinoid Screen Urine Negative (Negative); Cocaine Screen Urine Negative (Negative); Methadone Screen Urine Negative (Negative); Phencyclidine Screen Urine Negative (Negative)
[2020-09-19] MEDS: OXYTOCIN 30 UNITS/NS 500 ML 30 UNITS/500 ML BAG IV CONT (02:14)
[2020-09-19 02:27] LABS: Opiate Screen Urine Negative (Negative)
[2020-09-19] MEDS: ONDANSETRON INJ 4 MG/2 ML VIAL IV PUSH (08:37)
--- NOTE | 2020-09-19 09:55 | WPDHPUPDATE1 ---
History and Physical Update Update Date/Time: 09/19/20 09:55 24 yo who presented at 40w4d after SROM. She endorses good FM. She reports ctx q 5-10 min. Her was complicated by a bout of pyelonephritis but otherwise uncomplicated. History and Physical has been reviewed, including an updated exam of the patient. There are NO changes in the patient's condition. Risks, benefits, and alternatives have been discussed and questions answered. Patient agrees to proceed with procedure. A/P: 24 yo now at 40w5d after SROM Rh neg, will get Rhogam PP GBS neg cvx 1.5 cm at presentation, pitocin started for augmentation continuous EFM
--- NOTE | 2020-09-19 10:00 | PM.OBPNLAB ---
Pain Control Date/time seen: 09/19/20 10:00 Pain control: epidural Pelvic Exam Dilation (cm): 6 Amniotic membrane status: Ruptured Contractions Monitor mode: External Contraction pattern: Regular Status status: Category ll Comments: recurrent late decelerations Assessment and Plan Pitocin rate (mU/min): 3 Assessment: active labor Comments: FHT with more recurrent late decelerations. FHT not tolerant with maternal repositioning. Pitocin has never been above 3. Cvx now 6 cm but feeling more swollen. Will stop pitocin at this time. O2 supplementation administered and IVF bolus started. Will attempt to restart pitocin after FHT remain category 1. Discussed potential for section if FHT are intolerant to labor. Will continue to monitor at this time
[2020-09-19] MEDS: AMPICILLIN 2 GM/NS 100 ML 2 GM/100 ML BAG IVPB (15:25)
--- NOTE | 2020-09-19 19:53 | PM.OBPRVD ---
OB - Delivery Note Procedure Procedure: Patient pushed for a spontaneous vaginal delivery. The fetus was delivered atraumatically and placed on the maternal abdomen. The cord was clamped and cut after 1 minute of life. The cord was double clamped and cut and a segment of cord was collected for cord gases. Cord blood was collected for blood type and Coomb's testing. The placenta delivered spontaneously and was noted to be intact. The perineum was inspected and there were right and left labial and 1st degree perineal lacerations noted. The lacerations were repaired with 3-0 vicryl in the usual fashion. The uterus was firm and good hemostasis was noted. The patient and fetus were stable in the delivery room. Induction method: none Delivery augmentation: pitocin Delivery monitor: external FHT Route of delivery: Episiotomy description: None Laceration Description: Perineal - 1st Degree and Labial (right and left) Delivery repair: vicryl Specimen: No Quantitative Blood Loss: 500 Anesthesia type: Epidural Disposition: floor () Complications: No immediate complications [place] Baby Date of : 09/19/20 Time of : 19:35 Weeks of gestation at delivery: 40 gender: Male Weight (pounds): 7 Weight (ounces): 5 presentation: vertex position: Right Occiput Anterior Placenta delivery description: Spontaneous cord vessel description: 3 Vessels score one minute: 6 score five minutes: 9
[2020-09-19] MEDS: OXYTOCIN 30 UNITS/NS 500 ML 30 UNITS/500 ML BAG 125 UNITS IV CONT (20:22)
[2020-09-19] MEDS: WITCH HAZEL 40 PADS 1 PAD TOPICAL (21:44)
[2020-09-19] MEDS: BENZOCAINE 20% AER SPR (*SP) 56 GM CAN 1 SPRAY TOPICAL (21:44)
[2020-09-19] MEDS: IBUPROFEN 600 MG TABLET PO (21:58)
[2020-09-20 05:57] LABS: Hematocrit 26.7 % (37.0-47.0); Hemoglobin 8.7 g/dL (12.0-15.0)
[2020-09-20 08:45] VITALS: BP 124/74; PULSE 94; RESP 18; TEMP 37.2; O2SAT 99
--- NOTE | 2020-09-20 08:59 | PM.OBDSVD ---
DS: Admitting Diagnosis Admitting Diagnosis Admitting Diagnosis: Leaking OB - DS: Summary OB Procedures : None OB Procedures Intrapartum: Spontaneous Vag Delivery OB Procedures: : None Status at Discharge Functional status at discharge: independent ambulation Overall status at discharge: patient is back to baseline Time Spent with Patient Time attestation: Total time spent providing and/or coordinating discharge services: Time spent: Less than 30 minutes Exam Const: General: comfortable and no acute distress Resp: Effort & Inspection: normal respiratory effort Auscultation: clear to auscultation bilaterally Cardio: Rate: regular rate GI: GI Palp: Yes Soft to palpation Auscultation: normal bowel sounds Other: Fundus firm below umbilicus Psych: Appearance: grossly normal Mental Status: mental status grossly normal Affect: normal affect DS: Data Data Completed and Pending Pending studies at discharge: Pending at discharge 09/19/20 19:40 Surgical [PTH] Routine Labs on day of discharge: Labs from last 24 hours 09/20/20 09/20/20 04:48 04:48 Hgb 8.7 L Hct 26.7 L Blood Type O Negative Antibody Screen TNP Screen Negative Baby's Blood Type O pos Baby's DOROTHY Negative Doses of RhIg Required 1 Discharge Plan Discharge Discharging Clinician: Jared Brown Anticipated Discharge Date/Time: 09/20/20 19:35 Patient Disposition: Home, Self-Care Activity: pelvic rest Diet: regular Discharge Instructions: call or return for temperature >100.4, bleeding >2 pads/hr for 2 hrs, pain not controlled with medications, signs/symptoms of mastitis Patient Instructions: Antibiotic Form, Vaginal Delivery (DC) Stand Alone Forms: General Discharge Information Follow-up/Referrals: Kosta Hooks MD [Physician] - 4 Weeks Discharge Medications: New polysaccharide iron complex 150 mg iron Capsule 150 mg PO BIDWM Qty: 30 RF: 0 acetaminophen [Mapap (acetaminophen)] 325 mg Tablet 650 mg PO Q6H PRN (Reason: Mild Pain (1-3) Or Headache) Qty: 30 RF: 0 ibuprofen 600 mg Tablet 600 mg PO Q6H PRN (Reason: Cramping) Qty: 30 RF: 0 Continued One A Day Women's DHA 28 mg iron- 800 mcg combo pack 1 pkg PO DAILY RF: 0 Date of admission: 09/18/20 23:11 Primary Care Provider: Kendall Medrano Admitting Provider: Kosta Hooks Attending physician on admission: Kosta Hooks Condition: Stable
[2020-09-20] MEDS: DOCUSATE SODIUM 100 MG CAPSULE PO ×2 (10:15→16:37)
[2020-09-20] MEDS: POLYSACCHARIDE IRON COMPLEX 150 MG CAPSULE PO ×2 (10:15→16:37)
[2020-09-20] MEDS: IBUPROFEN 600 MG TABLET PO ×2 (10:16→16:44)
--- NOTE | 2020-09-20 12:55 | WPDANLDPN2 ---
Anes-Prog Note L&D Date/Time: 09/20/20 12:55 Comfortable throughout: labor and delivery Neuraxial method: epidural Epidural/Spinal procedure site: clean & non-tender Neuro status: Neuro function grossly intact. Cardiovascular status: normal Respiratory status: normal Airway patency: baseline Mental status: baseline Post-Op hydration status: normal Vital Signs: Last Vital Signs Temp 37.2 C 09/20/20 08:45 Pulse 94 09/20/20 08:45 Resp 18 09/20/20 08:45 BP 124/74 09/20/20 08:45 Pulse Ox 99 09/20/20 08:45 Pain score (VAS): 0 I/O: Intake & Output 09/19/20 09/20/20 09/20/20 23:59 07:59 15:59 Intake Total 1500 Output Total 110 Balance 1390 Post-procedural complaints: none Patient feedback: Patient satisfied with anesthetic care.
--- NOTE | 2020-09-20 13:40 | PCCCNOTE ---
Care Coordination Note. Pt. referred to CC for feeding issues. Pt. also had positive UDS for amphetamine 03/16/2020 in doctor's office. RN, Ann Marie, that had pt. yesterday also concerned if pt. has housing. Spoke with pt. and FOB at bedside and mother did all talking. Mother reports they have a stable home and thinks RN mixed up her story about driving in car years ago. Their address pulls up on google maps to a home that she and FOB live. Pt. reports baby slept through the night, so they didn't want to wake baby to eat. She reports feeding has been going well since. She is setup with [facility] and reports having all necessary baby care items. She reports both her family and FOB, [place]irt[place] Chester's family are supportive. FOB reports this is his 5th kid. Spoke with Ann Marie Brewer with [facility] Hotline and she states they will not take pt.'s situation as a report Intake ID#[id number], but they will offer pt. services in the home if she'd like. Will follow for baby's meconium results. Mother's UDS negative here.
[2020-09-20] MEDS: RHO(D) IMMUNE GLOBULIN 300 MCG SYRINGE IM (15:18)
--- NOTE | 2020-09-21 11:21 | PCCCNOTE ---
Care Coordination. Received call from Linda at [facility] Hotline (ID#[id number]) and they are now taking report for pt.'s situation. Received a call from Chelle Lopez [phone] with [facility] who will be going out today to their home to investigate. She would like Meconium results when complete for baby. Will follow up with her for that.
[2020-09-21 13:31] LABS: Rapid Plasma Reagin Non-Reactive (NonReactive)
== END 2020-09-20 20:37 | disposition home or self-care (01) | DRG 560 ==
LOC: ANHLDR 09-19 00:18 → ANHOB2 09-20 09:00 → ANHLDR 09-23 11:21 → ANHOB2 09-23 11:21
PROVIDERS: Admitting Provider Student in an Organized Health Care Education/Training Program; PCP Family Medicine; Visit Provider Student in an Organized Health Care Education/Training Program
DX: O76 Abnormality in fetal heart rate and rhythm complicating labor and delivery (principal); O70.0 First degree perineal laceration during delivery; O99.334 Smoking (tobacco) complicating childbirth; F17.210 Nicotine dependence, cigarettes, uncomplicated; Z3A.40 40 weeks gestation of pregnancy; Z37.0 Single live birth
CPT/HCPCS: 36415; 80307; 84112; 85014; 85018; 85025; 85461; 86592; 86850; 86900; 86901; 88307; 90384; A9270; J0290; J2405; J2590; J2790; J3010; J7120

== ENCOUNTER 2020-10-11 10:56 | Emergency (ER) | payer OTHER, SELFPAY ==
[2020-10-11 12:32] VITALS: BP 132/101; PULSE 117; RESP 20; TEMP 37.5; O2SAT 100
--- NOTE | 2020-10-11 13:17 | ED.SKABFB ---
HPI - Skin/Abscess/Foreign Bdy General Chief complaint: Skin/Abscess/Foreign Body Stated complaint: Swollen left eye Time Seen by Provider: 10/11/20 13:18 Source: patient and family Mode of arrival: ambulatory Limitations: no limitations History of Present Illness HPI narrative: Patient comes in with swollen left face. It appears she has a cellulitis on the side of her face which is severe. This has been ongoing for several days, and has been causing facial pain, dull and constant in nature. It is probably made more severe by her squeezing the area thinking it was a pimple. She evidently saw a doctor yesterday, but did not get her scripts filled, including one for keflex until today. Her first keflex was today. This does not appear to involve the eye. Quality: aching Pain Consistency: constant Relieving factors: medication Exacerbating factors: none Related Data Home Medications Medication Instructions Recorded Confirmed vits 75-iron 28 mg-folic 1 pkg PO DAILY 02/04/20 10/11/20 acid 800 mcg-omega-3 oral combo pack cephalexin 500 mg PO QID 10/11/20 10/11/20 sulfamethoxazole-trimethoprim 1 tablet PO BID 10/11/20 10/11/20 Allergies Allergy/AdvReac Type Severity Reaction Status Date / Time No Known Allergies Allergy Verified 10/11/20 12:44 Review of Systems Constitutional: Constitutional: Reports no additional constitutional complaints Eyes: Eyes: Reports no additional eye complaints ENT: Reports system reviewed and no additional complaints, except as documented Cardiovascular: Cardiovascular: Reports no additional cardiovascular complaints Respiratory: Respiratory: Reports no additional respiratory complaints Gastrointestinal: Gastrointestinal: Reports no additional gastrointestinal complaints Genitourinary: Genitourinary: Reports no additional female genitourinary complaints Musculoskeletal: Musculoskeletal: Reports no additional musculoskeletal complaints Integumentary/Breasts: Skin/Breast: Reports system reviewed and no additional complaints, except as docu Neurologic: Reports system reviewed and no additional complaints, except as documented Psychiatric: Psychiatric: Reports no additional psychiatric complaints Endocrine: Endocrine: Reports no additional endocrine complaints Hematologic/Lymphatic: Hematologic/Lymphatic: Reports no additional hematologic/lymphatic complaints Allergic/Immunologic: Allergic/Immunologic: Reports no additional allergic/immunologic complaints PMFSH Past Medical History Medical History Anxiety Depression Surgical History Surgical History No history of previous surgery Family History Family History Grandparent Diabetes mellitus Acute myocardial infarction Carcinoma of colon Father Hypertension Cerebrovascular accident Social History Social History Years smoked: 8 Smoking status: Current every day smoker Tobacco type: cigarettes Second hand tobacco smoke exposure: Yes Alcohol intake: former Substance use: never Substance use type: marijuana Gender identity (if verbalized by the patient): Female Spiritual care concerns: No Exam Const: General: no acute distress Orientation/consciousness: patient oriented x3 HENMT: Other: Area lateral to left eye is markedly swelled and appears to have a severe worrisome cellulitis. This is also causing the area above and below the left eye to swell. She can move her eyes throughout all normal range of motion without pain. This has been going on for days becoming more severe with time, after she squeezed an area she thought was a pimple. Eyes: Conjunctivae: conjunctivae normal EOM: EOMs intact bilaterally Other: no pain with eye movement Neck: Neck: normal visual inspection C
[2020-10-11] MEDS: cefTRIAXone 1 GM VIAL IM (13:34)
[2020-10-11] MEDS: LIDOCAINE HCL 1% LOCAL INJ 20 ML VIAL (13:35)
== END 2020-10-11 13:54 | disposition left against medical advice (07) ==
PROVIDERS: Emergency Provider Emergency Medicine; PCP Family Medicine
DX: L03.211 Cellulitis of face (principal)
CPT/HCPCS: 96372; 99283; J0696

== ENCOUNTER 2021-01-19 10:29 | Outpatient (CLI) | payer OTHER, SELFPAY ==
--- NOTE | ~2021-01-19 | XR_ITS ---
EXAMINATION: XR wrist LT min 3V DATE: 01/19/2021 10:55 INDICATION: Radial sided left wrist pain TECHNIQUE: Posteroanterior, ulnar deviation, oblique, and lateral views of the left wrist were obtain ed. COMPARISON: none FINDINGS: Alignment is normal. No fracture. Joint spaces are normal. Soft tissues are unremarkable. IMPRESSION: 1. Negative left wrist radiographs. Reviewed, dictated and finalized at location B.
== END 2021-01-19 10:30 | disposition home or self-care (01) ==
LOC: CHSLAB 10:31
PROVIDERS: PCP Family Medicine; Visit Provider Family Medicine
DX: M25.532 Pain in left wrist (principal)
CPT/HCPCS: 73110

== ENCOUNTER 2021-07-24 16:11 | Emergency (ER) | payer OTHER, SELFPAY ==
[2021-07-24 16:28] VITALS: BP 116/83; PULSE 96; RESP 18; TEMP 36.7; O2SAT 100
--- NOTE | 2021-07-24 16:38 | PC.NURSE ---
Accompanied Dr. Corrigan with exam.
--- NOTE | 2021-07-24 16:43 | PC.NURSE ---
heart tones completed. Heart rate 154.
--- NOTE | 2021-07-24 16:44 | ED.FEMALEGU ---
HPI - Female Genitourinary General Chief complaint: Skin/Abscess/Foreign Body Stated complaint: antibiotic reaction Source: patient History of Present Illness HPI Narrative: patient is 28 weeks and has recently been on antibiotics and currently has oral thrush white patches on her tongue with some on an erythematous base and she also has erythema in the vaginal area with a white discharge, currently there is no fever chills no nausea vomiting no abdominal pain no dysuria. Related Data Home Medications Medication Instructions Recorded Confirmed vits 75-iron 28 mg-folic 1 pkg PO DAILY 02/04/20 10/11/20 acid 800 mcg-omega-3 oral combo pack cephalexin 500 mg PO QID 10/11/20 10/11/20 sulfamethoxazole-trimethoprim 1 tablet PO BID 10/11/20 10/11/20 Allergies Allergy/AdvReac Type Severity Reaction Status Date / Time No Known Allergies Allergy Verified 10/11/20 12:44 Review of Systems Review of Systems: All systems reviewed & are unremarkable except as noted in HPI and below PMFSH Past Medical History Medical History Anxiety Depression Surgical History Surgical History No history of previous surgery Family History Family History Grandparent Diabetes mellitus Acute myocardial infarction Carcinoma of colon Father Hypertension Cerebrovascular accident Social History Social History Years smoked: 8 Smoking status: Current every day smoker Tobacco type: cigarettes Second hand tobacco smoke exposure: Yes Alcohol intake: former Substance use: never Substance use type: marijuana Gender identity (if verbalized by the patient): Female Sexual Orientation (if Verbalized by the Patient): Straight or Heterosexual Spiritual care concerns: No Exam Const: General: no acute distress Orientation/consciousness: patient oriented x3 HENMT: Head: normal to inspection Eyes: Conjunctivae: conjunctivae normal Pupils: Equal, round and reactive pupils present EOM: EOMs intact bilaterally Other: white patches on her tongue on an erythematous base Neck: Neck: normal visual inspection, no lymphadenopathy and no meningeal signs Chest: Chest palpation & inspection: normal inspection of the chest Resp: Effort & Inspection: normal respiratory effort Auscultation: clear to auscultation bilaterally Cardio: Rate: regular rate Rhythm: regular rhythm GI: GI Palp: Yes Soft to palpation Percussion: Yes normal to percussion : General: Yes no CVA tenderness Other: on the whole though there is a area of erythema with white discharge Back/Spine/Pelvis: Back: no CVA tenderness Neuro: General: patient oriented x3 and moves all extremities Extrem: General: normal to inspection Psych: Mental Status: mental status grossly normal Affect: normal affect Course Course Emergency Course: after evaluation of patient appears that she has white patches on her tongue which is consistent with oral thrush along with white patches any erythema on the vaginal vulval area consistent with bulge of vulval vaginitis. Vital Signs Vital signs: Vital Signs Temperature 36.7 C 07/24/21 16:28 Pulse Rate 96 07/24/21 16:28 Respiratory Rate 18 07/24/21 16:28 Blood Pressure 116/83 07/24/21 16:28 Pulse Oximetry 100 07/24/21 16:28 Temperature 36.7 C 07/24/21 16:28 Pulse Rate 96 07/24/21 16:28 Respiratory Rate 18 07/24/21 16:28 Blood Pressure 116/83 07/24/21 16:28 Pulse Oximetry 100 07/24/21 16:28 Critical Care Time Critical Care Time Critical Care Time: No Discharge Plan Discharge Clinical Impression: Candidiasis of genitalia, Oral thrush Patient Disposition: Home, Self-Care Condition: Stable Instructions: Antibiotic Form, Oral
== END 2021-07-24 17:02 | disposition home or self-care (01) ==
PROVIDERS: Emergency Provider Emergency Medicine; PCP Family Medicine
DX: B37.89 Other sites of candidiasis (principal); B37.0 Candidal stomatitis
CPT/HCPCS: 99283

== ENCOUNTER 2021-10-10 23:36 | Observation (INO) | payer OTHER, SELFPAY ==
--- NOTE | 2021-10-19 07:17 | PM.OBTRLD ---
OB - Triage/Final Diagnosis Visit Information Reason for evaluation: threatened labor Comments/Additional reasons for admission: I have assessed the risk for this patient, Miri Kemp, and determined that she would benefit from observation care.
== END 2021-10-11 00:41 | disposition home or self-care (01) ==
PROVIDERS: Admitting Provider Obstetrics & Gynecology; PCP Internal Medicine; Visit Provider Obstetrics & Gynecology
DX: O47.9 False labor, unspecified (principal); Z3A.00 Weeks of gestation of pregnancy not specified
CPT/HCPCS: G0378; G0379

== ENCOUNTER 2021-10-11 10:55 | Inpatient (IN) | payer OTHER, SELFPAY ==
[2021-10-11] VITALS (93 sets, daily range): BP systolic 105–141; BP diastolic 59–96; PULSE 54–102; RESP 18; TEMP 36.6–37.3; O2SAT 98–100; BMI 37.0
[2021-10-11 11:42] LABS: Basophils Absolute Auto 0.1 K/mm3 (0.0-0.1); Basophils Percent Auto 0.4 % (0.2-1.2); Eosinophils Absolute Auto 0.4 K/mm3 (0-0.3); Eosinophils Percent Auto 2.7 % (0-4.4); Hematocrit 28.6 % (37.0-47.0); Immature Granulocyte Absolute 0.31 K/mm3 (0.00-0.031); Immature Granulocyte Percent A 2.3 % (0-0.5); Lymphocytes Absolute Auto 2.41 K/mm3 (0.9-3.2); Lymphocytes Percent Auto 17.6 % (18.3-44.2); Mean Corpuscular HGB Conc 31.5 g/dl (32-36); Mean Corpuscular Hemoglobin 20.5 pg (26-34); Monocytes Absolute Auto 0.8 K/mm3 (0.1-0.6); Monocytes Percent Auto 6.1 % (2.6-8.5); Neutrophils Absolute Auto 9.7 K/mm3 (1.3-6.7); Neutrophils Percent Auto 70.9 % (45.5-73.1); Nucleated Red Blood Cells Perc 0.2 % (0.0-0.2); Platelet Count Result 250 k/mm3 (150-375); Red Cell Distribution Width 19.1 % (11.5-14.5); White Blood Count 13.7 K/mm3 (4.5-10.0)
[2021-10-11] MEDS: LACTATED RINGERS 1,000 ML 125 ML IV CONT (11:46)
[2021-10-11] MEDS: AMPICILLIN 2 GM/NS 100 ML 2 GM/100 ML BAG IVPB (11:47)
[2021-10-11] MEDS: OXYTOCIN 30 UNITS/NS 500 ML 30 UNITS/500 ML BAG IV CONT (11:48)
[2021-10-11 11:55] LABS: Alanine Aminotransferase 12 U/L (4-35); Albumin Level 3.5 g/dL (3.5-5.1); Alkaline Phosphatase 156 U/L (38-126); Anion Gap 6 mmol/L (8-16); Aspartate Amino Transferase 23 U/L (14-36); Bilirubin,Total 0.2 mg/dL (0.2-1.3); Blood Urea Nitrogen 11 mg/dL (7-17); Calcium 8.4 mg/dL (8.4-10.2); Carbon Dioxide 20 mmol/L (22-30); Chloride 101 mmol/L (98-107); Estimated Glomerular Filt Rate > 60; Glucose 83 mg/dL (65-110); Sodium 127 mmol/L (137-145)
--- NOTE | 2021-10-11 11:58 | PM.IMHP ---
H&P: HPI History of Present Illness Date/Time: 10/11/21 11:58 26-year-old 2 para 1 whose last menstrual period unknown EDC is 10/16/2021 confirmed by early ultrasound presents at 39 weeks gestation for induction of labor secondary to elevated blood pressures. She has had poor compliance she is negative for group B strep she is a smoker and has not stopped. Blood pressures have been elevated over the last couple weeks. Chief Complaint: elevated blood pressures at term Review of Systems Review of Systems: All systems reviewed & are unremarkable except as noted in HPI and below PMFSH Past Medical History Medical History Anxiety Depression Surgical History Surgical History No history of previous surgery Family History Family History Grandparent Diabetes mellitus Acute myocardial infarction Carcinoma of colon Father Hypertension Cerebrovascular accident Social History Social History Years smoked: 8 Smoking status: Current every day smoker Tobacco type: cigarettes Second hand tobacco smoke exposure: Yes Alcohol intake: former Substance use: never Substance use type: marijuana Gender identity (if verbalized by the patient): Female Sexual Orientation (if Verbalized by the Patient): Straight or Heterosexual Spiritual care concerns: No Meds Home Medications and Allergies Home Medications Medication Instructions Recorded Confirmed Type vits 75-iron 28 mg-folic 1 pkg PO DAILY 02/04/20 10/11/21 History acid 800 mcg-omega-3 oral combo pack polysaccharide iron complex 150 mg PO BIDWM #30 cap 09/20/20 10/11/21 Rx Allergies Allergy/AdvReac Type Severity Reaction Status Date / Time No Known Allergies Allergy Verified 07/24/21 17:00 Vital Signs Vital Signs - 24 hr 10/11/21 11:42 10/11/21 11:45 Pulse Rate 90 102 H Blood Pressure 125/69 117/78 Exam Const: General: no acute distress Eyes: General: appearance normal, both eyes and all related structures Neck: Neck: supple and no JVD Thyroid: thyroid normal Resp: Effort & Inspection: normal respiratory effort Auscultation: clear to auscultation bilaterally Cardio: Rate: regular rate Rhythm: regular rhythm GI: Inspection: non-distended GI Palp: Yes Soft to palpation, No Tenderness to palpation present (GI) and No Guarding due to palpation present (GI) Auscultation: normal bowel sounds : External Female Exam: normal external appearance Speculum Exam - Vagina: normal appearance of the vagina Speculum Exam - Cervix: Cervical os closed ( Cervix 4/50/2. AROM clear. FHTs reassuring) Skin: General skin exam: no rashes or lesions noted Extrem: General: normal to inspection and no edema Psych: Mental Status: mental status grossly normal Affect: normal affect H&P: Results Labs Labs: Short CBC 10/11/21 Range/Units 11:28 WBC 13.7 H (4.5-10.0) K/mm3 Hgb 9.0 L (12.0-15.0) g/dL Hct 28.6 L (37.0-47.0) % Plt Count 250 (150-375) k/mm3 BMP 10/11/21 11:28 Sodium 127 L Potassium 4.0 Chloride 101 Carbon Dioxide 20 L BUN 11 D Creatinine 0.60 L Glucose 83 Calcium 8.4 Liver Function 10/11/21 Range/Units 11:28 Total Bilirubin 0.2 (0.2-1.3) mg/dL AST 23 (14-36) U/L ALT 12 (4-35) U/L Alkaline Phosphatase 156 H (38-126) U/L Albumin 3.5 (3.5-5.1) g/dL Assessment and Plan Additional Plan impression: Term with elevated blood pressures Plan: Medical induction of labor. Spontaneous vaginal of expected. Will check PIH labs
[2021-10-11 11:59] LABS: Uric Acid 4.9 mg/dL (2.5-7.5)
--- NOTE | 2021-10-11 12:03 | LDADM ---
This patient, Miri Kemp, was admitted to Labor/Delivery/Recovery 105 on 10/11/21 at 10:55. Plans for labor, pain management and were discussed with patient. Patient/family oriented to hospital policies and general routines including ID bracelet, bed and alarms, visiting hours, pain management, procedures, bathroom and other care routines, personal items, smoking policy, room service/diet and guest tray routines, security routines, and visiting hours. Patient/Family are encouraged to report perceived risks to care and to ask questions if they do not understand what they are told or what they should do. See OBIX for further documentation.
[2021-10-11] MEDS: LACTATED RINGERS 1,000 ML 999 ML IV CONT (13:27)
--- NOTE | 2021-10-11 15:58 | PM.OBPRVD ---
OB - Delivery Note Procedure Delivery date: 10/11/21 Procedure: mil Intrapartal events: None Induction method: AROM Delivery monitor: external FHT Route of delivery: Episiotomy description: None Laceration Description: None Specimen: No Quantitative Blood Loss (ml): 59 Anesthesia type: Epidural Disposition: floor [place] Baby Date of : 10/11/21 Time of : 15:49 Weeks of gestation at delivery: 39 gender: Male presentation: vertex position: Right Occiput Anterior Placenta delivery description: Spontaneous cord vessel description: 3 Vessels score one minute: 8 score five minutes: 9
[2021-10-11] MEDS: OXYTOCIN 30 UNITS/NS 500 ML 30 UNITS/500 ML BAG 125 UNITS IV CONT (16:27)
[2021-10-11] MEDS: IBUPROFEN 600 MG TABLET PO (17:44)
--- NOTE | 2021-10-11 18:23 | ADMGEN ---
This patient, Miri Kemp, was admitted to OB 2nd Floor Room 284-00. Patient/family oriented to hospital policies and general routines including ID bracelet, bed and alarms, visiting hours, pain management, procedures, bathroom and other care routines, personal items, smoking policy, room service/diet, and visiting hours. Information on how to activate the Rapid Response Team has been discussed. Patient/Family are encouraged to report perceived risks to care and to ask questions if they do not understand what they are told or what they should do.
[2021-10-11] MEDS: ACETAMINOPHEN 325 MG TABLET 650 MG PO (20:31)
[2021-10-12 04:14] VITALS: BP 121/82; PULSE 86; RESP 18; TEMP 37
[2021-10-12 05:20] LABS: Hematocrit 27.4 % (37.0-47.0); Hemoglobin 8.4 g/dL (12.0-15.0)
--- NOTE | 2021-10-12 06:55 | PM.DS ---
DS: Admitting Diagnosis Discharge Date 10/12/2021 Admitting Diagnosis term with mild gestational hypertension DS: Summary Hospital Course Hospital Course: the patient was admitted for induction of labor. PIH labs were all normal. She underwent rapid spontaneous vaginal delivery of a male infant. Her hospital course was unremarkable. She remained afebrile and blood pressures remain stable. She was up, ambulating, voiding, and generally without complaints Time Spent with Patient Time attestation: Total time spent providing and/or coordinating discharge services: Exam Const: General: no acute distress Eyes: General: appearance normal, both eyes and all related structures Neck: Neck: supple and no JVD Thyroid: thyroid normal Resp: Effort & Inspection: normal respiratory effort Auscultation: clear to auscultation bilaterally Cardio: Rate: regular rate Rhythm: regular rhythm GI: Inspection: non-distended GI Palp: Yes Soft to palpation, No Tenderness to palpation present (GI) and No Guarding due to palpation present (GI) Auscultation: normal bowel sounds : General: Yes bladder normal to palpation External Female Exam: normal external appearance Speculum Exam - Vagina: normal vaginal discharge and No vaginal bleeding Speculum Exam - Cervix: nontender Bimanual exam- vagina & uterus: bladder normal to palpation and No Cervical tenderness present OB/external & speculum: No vaginal bleeding Skin: General skin exam: no rashes or lesions noted Extrem: General: normal to inspection and no edema Psych: Mental Status: mental status grossly normal Affect: normal affect DS: Data Data Completed and Pending Labs on day of discharge: Labs from last 24 hours 10/12/21 10/12/21 10/11/21 03:26 03:26 11:28 WBC RBC Hgb 8.4 L Hct 27.4 L MCV MCH MCHC RDW Plt Count MPV Immature Gran % (Auto) Neut % (Auto) Lymph % (Auto) [place] % (Auto) Eos % (Auto) Baso % (Auto) Lymph # (Auto) [place] # (Auto) Eos # (Auto) Baso # (Auto) Abs Immat Gran (auto) Absolute Neuts (auto) Absolute Nucleated RBC Nucleated RBC % Sodium Potassium Chloride Carbon Dioxide Anion Gap BUN Creatinine Estim Creat Clear Calc Estimated GFR Glucose Uric Acid Calcium Total Bilirubin AST ALT Alkaline Phosphatase Total Protein Albumin RPR Blood Type O Negative O Negative Antibody Screen Negative Negative Screen Pending Baby's Blood Type Pending Baby's DOROTHY Pending Doses of RhIg Required Pending 10/11/21 10/11/21 10/11/21 11:28 11:28 11:28 WBC 13.7 H RBC 4.40 Hgb 9.0 L Hct 28.6 L MCV 65.0 L MCH 20.5 L MCHC 31.5 L RDW 19.1 H Plt Count 250 MPV 10.0 Immature Gran % (Auto) 2.3 H Neut % (Auto) 70.9 Lymph % (Auto) 17.6 L [place] % (Auto) 6.1 Eos % (Auto) 2.7 Baso % (Auto) 0.4 Lymph # (Auto) 2.41 [place] # (Auto) 0.8 H Eos # (Auto) 0.4 H Baso # (Auto) 0.1 Abs Immat Gran (auto) 0.31 H Absolute Neuts (auto) 9.7 H Absolute Nucleated RBC 0.0 Nucleated RBC % 0.2 Sodium 127 L Potassium 4.0 Chloride 101 Carbon Dioxide 20 L Anion Gap 6 L BUN 11 D Creatinine 0.60 L Estim Creat Clear Calc Not Reportable Estimated GFR > 60 Glucose 83 Uric Acid Calcium 8.4 Total Bilirubin 0.2 AST 23 ALT 12 Alkaline Phosphatase 156 H Total Protein 6.0 L Albumin 3.5 RPR Pending Blood Type Antibody Screen Screen Baby's Blood Type Baby's DOROTHY Doses of RhIg Required 10/11/21 11:28 WBC RBC Hgb Hct MCV MCH MCHC RDW Plt Count MPV Immature Gran % (Auto) Neut % (Auto) Lymph % (Auto) [place] % (Auto) Eos % (Auto) Baso % (Auto) Lymph # (Auto) [place] # (Auto) Eos # (Auto) Baso # (Auto) Abs Immat Gran (auto) Absolute
--- NOTE | 2021-10-12 06:57 | P.PNOB_ITS ---
OB - PN: Subj Subjective Date/time seen: 10/12/21 06:57 Patient comments: no complaints and pain well controlled baby status: doing well OB - PN: Obj Data Labs CBC & Chem 7: 10/12/21 03:26 10/11/21 11:28 Labs: Laboratory Results - last 24 hr 10/11/21 10/11/21 10/11/21 11:28 11:28 11:28 WBC 13.7 H RBC 4.40 Hgb 9.0 L Hct 28.6 L MCV 65.0 L MCH 20.5 L MCHC 31.5 L RDW 19.1 H Plt Count 250 MPV 10.0 Immature Gran % (Auto) 2.3 H Neut % (Auto) 70.9 Lymph % (Auto) 17.6 L [place] % (Auto) 6.1 Eos % (Auto) 2.7 Baso % (Auto) 0.4 Lymph # (Auto) 2.41 [place] # (Auto) 0.8 H Eos # (Auto) 0.4 H Baso # (Auto) 0.1 Abs Immat Gran (auto) 0.31 H Absolute Neuts (auto) 9.7 H Absolute Nucleated RBC 0.0 Nucleated RBC % 0.2 Sodium 127 L Potassium 4.0 Chloride 101 Carbon Dioxide 20 L Anion Gap 6 L BUN 11 D Creatinine 0.60 L Estim Creat Clear Calc Not Reportable Estimated GFR > 60 Glucose 83 Uric Acid 4.9 Calcium 8.4 Total Bilirubin 0.2 AST 23 ALT 12 Alkaline Phosphatase 156 H Total Protein 6.0 L Albumin 3.5 Blood Type Antibody Screen 10/11/21 10/12/21 10/12/21 11:28 03:26 03:26 WBC RBC Hgb 8.4 L Hct 27.4 L MCV MCH MCHC RDW Plt Count MPV Immature Gran % (Auto) Neut % (Auto) Lymph % (Auto) [place] % (Auto) Eos % (Auto) Baso % (Auto) Lymph # (Auto) [place] # (Auto) Eos # (Auto) Baso # (Auto) Abs Immat Gran (auto) Absolute Neuts (auto) Absolute Nucleated RBC Nucleated RBC % Sodium Potassium Chloride Carbon Dioxide Anion Gap BUN Creatinine Estim Creat Clear Calc Estimated GFR Glucose Uric Acid Calcium Total Bilirubin AST ALT Alkaline Phosphatase Total Protein Albumin Blood Type O Negative O Negative Antibody Screen Negative Negative OB - PN A/P Plan day: 1 Plan: routine care, discharge home and follow up 6 weeks Time Spent With Patient Time: Total time spent is greater than 50% in coordination of care (as do cumented) at patient's floor/unit and/or counseling patient: Time with patient: less than 15 minutes Review of Systems Review of Systems: All systems reviewed & are unremarkable except as noted in HPI and below Exam Const: General: no acute distress Eyes: General: appearance normal, both eyes and all related structures Neck: Neck: supple and no JVD Th
[2021-10-12 09:00] VITALS: BP 114/73; PULSE 76; RESP 18; TEMP 36.9; O2SAT 100
[2021-10-12] MEDS: RHO(D) IMMUNE GLOBULIN 300 MCG/2 ML SYRINGE IM (10:39)
[2021-10-12] MEDS: POLYSACCHARIDE IRON COMPLEX 150 MG CAPSULE PO (10:39)
[2021-10-12 12:00] VITALS: BP 116/80; PULSE 108; RESP 18; TEMP 36.7
--- NOTE | 2021-10-12 12:48 | WPDANLDPN2 ---
Anes-Prog Note L&D Date/Time: 10/12/21 12:48 Comfortable throughout: labor and delivery Neuraxial method: epidural Epidural/Spinal procedure site: clean & non-tender Neuro status: Neuro function grossly intact. Cardiovascular status: normal Respiratory status: normal Airway patency: baseline Mental status: baseline Post-Op hydration status: normal Vital Signs: Last Vital Signs Temp 98.0 F 10/12/21 12:00 Pulse 108 H 10/12/21 12:00 Resp 18 10/12/21 12:00 BP 116/80 10/12/21 12:00 Pulse Ox 100 10/12/21 09:00 Pain score (VAS): 0 I/O: Intake & Output 10/11/21 10/12/21 10/12/21 23:59 07:59 15:59 Intake Total 1700 Output Total 359 Balance 1341 Patient feedback: Patient satisfied with anesthetic care.
[2021-10-12 14:38] LABS: Rapid Plasma Reagin Non-Reactive (NonReactive)
== END 2021-10-12 16:40 | disposition home or self-care (01) | DRG 560 ==
LOC: ANHLDR 11:06 → ANHOB2 18:34
PROVIDERS: Admitting Provider Obstetrics & Gynecology; PCP Internal Medicine; Visit Provider Obstetrics & Gynecology
DX: O13.4 Gestational [pregnancy-induced] hypertension without significant proteinuria, complicating childbirth (principal); O99.334 Smoking (tobacco) complicating childbirth; F17.210 Nicotine dependence, cigarettes, uncomplicated; Z3A.39 39 weeks gestation of pregnancy; Z37.0 Single live birth
CPT/HCPCS: 36415; 80053; 84550; 85014; 85018; 85025; 85461; 86592; 86850; 86900; 86901; 90384; A9270; G0378; G0379; J0290; J2590; J2790; J2795; J7120

== ENCOUNTER → 2021-11-16 03:17 | Outpatient (CLI) | payer OTHER, SELFPAY | PROVIDERS: PCP Internal Medicine; Visit Provider Obstetrics & Gynecology | DX: Z01.812 Encounter for preprocedural laboratory examination (principal); Z20.822 Contact with and (suspected) exposure to COVID-19; Z53.8 Procedure and treatment not carried out for other reasons | CPT/HCPCS: J1100; J1885; J2405; J2704 ==

== ENCOUNTER 2021-11-16 09:20 | Outpatient (CLI) | payer OTHER, SELFPAY ==
[2021-11-16 10:49] LABS: Hemoglobin 10.7 g/dL (12.0-15.0)
[2021-11-16 11:16] LABS: SARS-CoV-2 RNA PCR Negative (Negative)
== END 2021-11-16 09:21 | disposition home or self-care (01) ==
LOC: CHSLAB 09:24
PROVIDERS: Anesthesiology; PCP Internal Medicine; Visit Provider Obstetrics & Gynecology
DX: D64.9 Anemia, unspecified (principal); U07.1 COVID-19
CPT/HCPCS: 36415; 85014; 85018; C9803; U0003; U0005

== ENCOUNTER 2021-11-19 01:03 | Day surgery (SDC) | payer OTHER, SELFPAY ==
--- NOTE | 2021-11-11 12:07 | PC.NURSE ---
Report to the Outpatient Waiting Room, entrance under the green pavilion located off [facility], at time __0830 on date __11/19/2021 . OR Time: ____1030____. - You will be asked a series of questions to screen for COVID 19 for your protection. - A mask is required within the hospital. - NO visitor is allowed at this time. Patient visitors will be updated per phone. Preoperative COVID Testing Requirements: No COVID Test needed if: (proof is required; if not received patient will have Rapid Test prior to entry) - Patient has received COVID Vaccine at least 14 days prior to procedure date or - Patient has positive COVID test result within last 90 days of surgery date. COVID Test needed if above criteria is not met If not COVID vaccinated a COVID test must be conducted within 72 hours of surgery and patient is asked to isolate self from time of testing until procedure. You will go to the [facility] for your COVID testing. The [facility] site is located at the corner of [address] [facility]. You will only be called if COVID results are positive and your surgeon may reschedule your elective surgery date. Patients may have clear liquids (water, carbonated beverages, clear teas, apple juice) until 3 hours prior to surgery with a maximum of 20 ounces. - No food from midnight until time of surgery - Infants may have breast milk until 4 hours before surgery, formula 6 hours prior to surgery. - Children will be allowed to drink immediately following surgery. If applicable, please bring a bottle or sippy cup to assist with drinking. Juice, water, soda, and popsicles are readily available. For infants on formula, please bring formula the day of surgery. Pacifiers are allowed. Take the following medications with a SIP of water the morning of surgery: _Bupropion and Sertaline Medications to discontinue per physician Date to take last dose Please no make-up, nail marshallese, hairspray, perfume, deodorant, or body powder the day of surgery. No jewelry (including any body piercings) or valuables the day of surgery, leave them at home. Please take a shower or bath the night before, or the morning of, surgery with an antibacterial soap. Wear comfortable, loose fitting clothing. Children are encouraged to wear pajamas. - Jewelry must be removed prior to entering the operating room. Rings and piercings that are not removed may be cut off. - The hospital will not accept responsibility for valuables. - Please leave all valuables, including medications, at home the day of surgery. If you are going home after surgery, a licensed service parts driver must drive you home. - NO public transportation without another adult. - We recommend that an adult stay with you for 24 hours following discharge. - We also recommend that you do not drive, make important decision, drink alcoholic beverages, or take any drugs that were not prescribed by your health care provider for at least 24 hours after your discharge time. For Pediatric surgeries, we recommend two adults accompany the child home (only one inside the building at this time). Follow any additional instructions given to you from your surgeon. Telephone instructions given to ___patient and asked if any additional questions and then verbalized understanding. Patient advised to call surgeon office or pre surgery nurse liaison [phone] if any additional questions.
--- NOTE | 2021-11-18 15:02 | PM.IMHP ---
H&P: HPI History of Present Illness Date/Time: 11/18/21 15:02 This is 26-year-old multiparous admitted for permanent sterilization. She declines alternative methods including but not exclusive of pills/bus patches/large 6/injections. Failure rate of 12/999 and subsequent risk of pic by ectopic bleeding and reviewed. Risks and benefits of the procedure reviewed in full. She received the [employer] handout entitled sterilization for men and women. She had all questions answered. She asked to proceed Chief Complaint: Desires sterilization Review of Systems Review of Systems: All systems reviewed & are unremarkable except as noted in HPI and below PMFSH Past Medical History Medical History Anxiety Depression Surgical History Surgical History No history of previous surgery Family History Family History Grandparent Diabetes mellitus Acute myocardial infarction Carcinoma of colon Father Hypertension Cerebrovascular accident Social History Social History Smoking packs per day: 1 Smoking cigarettes per day: 20.0 Years smoked: 8 Smoking pack-years: 8.00 Smoking status: Current every day smoker Tobacco type: cigarettes Second hand tobacco smoke exposure: Yes Alcohol intake: former Substance use: never Substance use type: marijuana Additional living arrangements comments: LIVES W/CHILDREN Gender identity (if verbalized by the patient): Female Sexual Orientation (if Verbalized by the Patient): Straight or Heterosexual Spiritual care concerns: No Meds Home Medications and Allergies Home Medications Medication Instructions Recorded Confirmed Type bupropion HCl 75 mg PO DAILY 10/11/21 11/11/21 History sertraline 25 mg PO DAILY 10/11/21 11/11/21 History ergocalciferol (vitamin D2) 50,000 unit PO WEEKLY 11/11/21 11/11/21 History polysaccharide iron complex 150 mg PO DAILY 11/11/21 11/11/21 History Allergies Allergy/AdvReac Type Severity Reaction Status Date / Time No Known Allergies Allergy Verified 11/11/21 11:50 Exam Const: General: no acute distress Eyes: General: appearance normal, both eyes and all related structures Neck: Neck: supple and no JVD Thyroid: thyroid normal Resp: Effort & Inspection: normal respiratory effort Auscultation: clear to auscultation bilaterally Cardio: Rate: regular rate Rhythm: regular rhythm GI: Inspection: non-distended GI Palp: Yes Soft to palpation, No Tenderness to palpation present (GI) and No Guarding due to palpation present (GI) Auscultation: normal bowel sounds : General: Yes bladder normal to palpation External Female Exam: normal external appearance Speculum Exam - Vagina: normal vaginal discharge and No vaginal bleeding Speculum Exam - Cervix: nontender Bimanual exam- vagina & uterus: bladder normal to palpation and No Cervical tenderness present OB/external & speculum: No vaginal bleeding Skin: General skin exam: no rashes or lesions noted Extrem: General: normal to inspection and no edema Psych: Mental Status: mental status grossly normal Affect: normal affect Assessment and Plan Additional Plan Impression: Desires permanent sterilization Plan: Laparoscopic bilateral tubal ligation
--- NOTE | 2021-11-18 15:28 | WPDANESEPP ---
Anes - Eval Pre Procedure Procedure: Operation Date: 11/19/21 08:30 Proposed Procedures p Laparoscopic Bilateral Tubal Sterilization with Fallopian Rings - Kosta Hooks MD Date/Time: 11/18/21 15:28 Pre Op Diagnosis: desires sterilization Patient Data Age: 26 Gender: F Height: 1.63 m Weight: 79.38 kg Allergies Allergy/AdvReac Type Severity Reaction Status Date / Time No Known Allergies Allergy Verified 11/11/21 11:50 Home Medications Medication Instructions Recorded Confirmed Type bupropion HCl 75 mg PO DAILY 10/11/21 11/11/21 History sertraline 25 mg PO DAILY 10/11/21 11/11/21 History ergocalciferol (vitamin D2) 50,000 unit PO WEEKLY 11/11/21 11/11/21 History polysaccharide iron complex 150 mg PO DAILY 11/11/21 11/11/21 History Patient hx anesthesia problems: none Family hx anesthesia problems: none Results Review: All pre-operative results and documents have been reviewed as part of the pre-operative evaluation. FOR[facility]LY [facility] Past Medical History Medical History Anxiety Depression Surgical History Surgical History No history of previous surgery Family History Family History Grandparent Diabetes mellitus Acute myocardial infarction Carcinoma of colon Father Hypertension Cerebrovascular accident Social History Social History Smoking packs per day: 1 Smoking cigarettes per day: 20.0 Years smoked: 8 Smoking pack-years: 8.00 Smoking status: Current every day smoker Tobacco type: cigarettes Second hand tobacco smoke exposure: Yes Alcohol intake: former Substance use: never Substance use type: marijuana Additional living arrangements comments: LIVES W/CHILDREN Gender identity (if verbalized by the patient): Female Sexual Orientation (if Verbalized by the Patient): Straight or Heterosexual Spiritual care concerns: No Exam Day of Procedure 11/18/21 15:28
[2021-11-19] VITALS (8 sets, daily range): BP systolic 118–139; BP diastolic 64–94; PULSE 50–75; RESP 14–19; TEMP 36.6–37.2; O2SAT 98–100; BMI 33.0
--- NOTE | 2021-11-19 06:51 | WPDHPUPDATE1 ---
History and Physical Update Update Date/Time: 11/19/21 06:51 History and Physical has been reviewed, including an updated exam of the patient. There are NO changes in the patient's condition. Risks, benefits, and alternatives have been discussed and questions answered. Patient agrees to proceed with procedure.
[2021-11-19] MEDS: LACTATED RINGERS 1,000 ML 30 ML IV CONT ×2 (07:30→09:15)
[2021-11-19] MEDS: KETOROLAC 15 MG/ML VIAL (*BKC) IV PUSH (07:30)
[2021-11-19] MEDS: ACETAMINOPHEN 500 MG TABLET 1000 MG PO (07:30)
--- NOTE | 2021-11-19 08:24 | WPDANESEFPP ---
Anes - Eval Final PreProcedure Day of Procedure 11/19/21 08:24 Patient weight: obese (bmi 33) Heart: regular rate and rhythm Lungs: clear to auscultation Airway: Mallampati scale class 1 Neurological: alert and oriented Last oral intake: 4 hours (water this am, food last pm > 8hrs) ASA classification: II Emergent: no Anesthetic plan: proceed Anesthesia type and monitoring: general Results Review: All pre-operative results and documents have been reviewed as part of the pre-operative evaluation. Informed Consent: The patient's anesthetic plan and its attendant risks and benefits were discussed with the patient/family/POA. Questions were solicited and answers provided to the satisfaction of the patient/family/POA.
--- NOTE | 2021-11-19 09:00 | W.PM.PROC2 ---
Procedure Note - Detailed Date of Procedure 11/19/21 Pre-op Diagnosis desires sterilization Post-op Diagnosis same Procedure Performed Laparoscopic bilateral tubal ligation with rings Surgeon Kosta Hooks MD Anesthesia general Indications a 26-year-old multiparous patient who desires permanent sterilization Findings normal-appearing uterus ovaries and tubes. Normal-appearing gallbladder and liver edge. Normal-appearing appendix Description of Procedure patient was prepped draped in the normal sterile fashion placed in dorsal lithotomy position. Under excellent general endotracheal anesthesia weighted speculum placed in posterior fornix vagina. Anterior lip of the cervix grasped with a single-tooth tenaculum and the Morelos's cannula inserted to the cervix. The 2 were attached together to be used later for uterine manipulation. After emptying the bladder of clear urine the weighted speculum was removed. The gloves were changed. An infraumbilical incision made the Veress needle passed in the abdomen. The abdomen filled with CO2 gas [id number]. 5Mm trocar advanced with the Optiview no injury seen. Gas reattached the patient placed in Trendelenburg. A suprapubic incision made the 5mm trocar advanced under direct visualization assuring no injury. The above findings were seen in photo documentation undertaken. The right fallopian tube was grasped and a good knuckle of tube formed with excellent blanching. In like fashion the opposite tube was grasped and a good knuckle of tube formed with excellent blanching. Photo documentation was undertaken. No other abnormalities were seen. the gas was removed from the abdomen in the trocars removed. The incisions closed with 4 Monocryl and glue. The instruments removed from the vagina and the patient returned to recovery. All sponge, needle, instrument counts were correct. There were no immediate complications Estimated Blood Loss 5 Drains No Packing No Pathology none sent Complications No immediate complications Condition stable Disposition PACU
[2021-11-19] MEDS: fentaNYL CITRATE INJ (*CRX) 100 MCG/2 ML VIAL 25 MCG IV PUSH ×5 (09:28→10:04)
[2021-11-19] MEDS: oxyCODONE HCL (*CRX) 5 MG TAB IR PO (10:47)
== END 2021-11-19 11:45 | disposition home or self-care (01) ==
PROVIDERS: PCP Internal Medicine; Visit Provider Obstetrics & Gynecology
PROC: (CPT 58671; principal; 2021-11-19 08:30)
DX: Z30.2 Encounter for sterilization (principal); F17.210 Nicotine dependence, cigarettes, uncomplicated; E66.9 Obesity, unspecified; Z68.33 Body mass index [BMI] 33.0-33.9, adult; F41.9 Anxiety disorder, unspecified; F12.90 Cannabis use, unspecified, uncomplicated
CPT/HCPCS: 58671; A4264; A9270; J1885; J2250; J3010; J7120

== ENCOUNTER 2022-03-03 21:54 | Emergency (ER) | payer OTHER, SELFPAY ==
--- NOTE | 2022-03-03 22:08 | ED.DENTAL ---
HPI - Dental/Oral General Stated complaint: swelling in face Source: patient Mode of arrival: ambulatory Limitations: no limitations History of Present Illness HPI Narrative: this is a 26-year-old presents with some right upper tooth decay and dental pain with surrounding gum inflammation with no fever chills does have a tender submandibular gland on the right with some no shortness of breath no nausea vomiting. MD Complaint: tooth pain Teeth map: 1. dental caries with surrounding gum inflammation Onset (ago): day(s) Duration: constant Severity: mild Severity scale (1-10): 2 Relieving factors: NSAIDs Exacerbating factors: chewing Related Data Home Medications Medication Instructions Recorded Confirmed bupropion HCl 75 mg PO DAILY 10/11/21 11/19/21 sertraline 25 mg PO DAILY 10/11/21 11/19/21 ergocalciferol (vitamin D2) 50,000 unit PO WEEKLY 11/11/21 11/11/21 polysaccharide iron complex 150 mg PO DAILY 11/11/21 11/11/21 Allergies Allergy/AdvReac Type Severity Reaction Status Date / Time No Known Allergies Allergy Verified 11/19/21 07:54 Review of Systems Review of Systems: All systems reviewed & are unremarkable except as noted in HPI and below PMFSH Past Medical History Medical History Anxiety Depression Surgical History Surgical History No history of previous surgery Family History Family History Grandparent Diabetes mellitus Acute myocardial infarction Carcinoma of colon Father Hypertension Cerebrovascular accident Social History Social History Smoking packs per day: 0.5 Smoking cigarettes per day: 10.0 Years smoked: 8 Smoking pack-years: 4.00 Smoking status: Current some day smoker Tobacco type: cigarettes Second hand tobacco smoke exposure: Yes Alcohol intake: former Substance use: never Substance use type: marijuana Additional living arrangements comments: LIVES W/CHILDREN Gender identity (if verbalized by the patient): Female Sexual Orientation (if Verbalized by the Patient): Straight or Heterosexual Spiritual care concerns: No Exam Const: General: no acute distress Orientation/consciousness: patient oriented x3 HENMT: Head: normal to inspection Eyes: Conjunctivae: conjunctivae normal Pupils: Equal, round and reactive pupils present Neck: Neck: normal visual inspection Chest: Chest palpation & inspection: normal inspection of the chest Resp: Effort & Inspection: normal respiratory effort Auscultation: clear to auscultation bilaterally Cardio: Rate: regular rate Rhythm: regular rhythm GI: GI Palp: Yes Soft to palpation Percussion: Yes normal to percussion : General: Yes no CVA tenderness Urinary Catheter: Urinary Catheter: patent and draining Skin: General skin exam: normal color Rashes: no rashes Neuro: General: patient oriented x3, moves all extremities and no meningeal signs Extrem: General: normal to inspection and no pedal edema Psych: Mental Status: mental status grossly normal Affect: normal affect Course Course Emergency Course: Patient declined any pain medication, patient received a dose of amoxicillin. Critical Care Time Critical Care Time Critical Care Time: No Discharge Plan Discharge Clinical Impression: Dental abscess Patient Disposition: Home, Self-Care Condition: Stable Instructions: Antibiotic Form Additional Instructions: advised take medicine as prescribed and follow-up dentist as soon as possible for further evaluation treatment. Prescriptions: New amoxicillin 500 mg capsule 500 mg PO TID 10 Days Qty: 30 RF: 0 No Action polysaccharide iron complex 150 mg iron capsule 150 mg PO DAILY RF: 0 ergocalciferol (vitamin D2) 1,250 mcg (50,000
[2022-03-03 22:13] VITALS: BP 116/73; PULSE 103; RESP 18; TEMP 36.6; O2SAT 98
[2022-03-03] MEDS: AMOXICILLIN 500 MG CAPSULE PO (22:31)
== END 2022-03-03 22:35 | disposition home or self-care (01) ==
PROVIDERS: Emergency Provider Emergency Medicine; PCP Internal Medicine
DX: K04.7 Periapical abscess without sinus (principal)
CPT/HCPCS: 99283; A9270

== ENCOUNTER 2022-05-12 15:03 | Emergency (ER) | payer OTHER, SELFPAY ==
[2022-05-12 15:17] VITALS: BP 121/65; PULSE 96; RESP 17; TEMP 36.6; O2SAT 100
--- NOTE | 2022-05-12 15:17 | ED.DENTAL ---
HPI - Dental/Oral General Chief complaint: Dental/Oral Stated complaint: INFECTED TOOTH AND SPOT ON FACE Time Seen by Provider: 05/12/22 15:10 Source: patient and RN notes reviewed Mode of arrival: ambulatory Limitations: no limitations History of Present Illness Complaint: tooth pain Location: Tooth # (3) Duration: constant Severity: moderate Relieving factors: nothing Exacerbating factors: chewing Context: history of dental caries Treatment prior to arrival: none Related Data Home Medications Medication Instructions Recorded Confirmed sertraline 25 mg tablet 25 mg PO DAILY 10/11/21 05/12/22 ergocalciferol (vitamin D2) 1,250 50,000 unit PO WEEKLY 11/11/21 05/12/22 mcg (50,000 unit) capsule polysaccharide iron complex 150 mg 150 mg PO DAILY 11/11/21 05/12/22 iron capsule Allergies Allergy/AdvReac Type Severity Reaction Status Date / Time No Known Allergies Allergy Verified 05/12/22 15:21 Review of Systems Review of Systems: All systems reviewed & are unremarkable except as noted in HPI and below Constitutional: Constitutional: Denies chills and Denies fever(s) Integumentary/Breasts: Skin/Breast: Reports skin ulcer (on chin not new) PMFSH Past Medical History Medical History Anxiety Depression Surgical History Surgical History No history of previous surgery Family History Family History Grandparent Diabetes mellitus Acute myocardial infarction Carcinoma of colon Father Hypertension Cerebrovascular accident Social History Social History Smoking packs per day: 0.5 Smoking cigarettes per day: 10.0 Years smoked: 8 Smoking pack-years: 4.00 Smoking status: Current some day smoker Tobacco type: cigarettes Second hand tobacco smoke exposure: Yes Alcohol intake: former Substance use: never Substance use type: marijuana Additional living arrangements comments: LIVES W/CHILDREN Gender identity (if verbalized by the patient): Female Sexual Orientation (if Verbalized by the Patient): Straight or Heterosexual Spiritual care concerns: No Exam Const: General: healthy appearing, no acute distress and alert Nutritional Appearance: well nourished Orientation/consciousness: patient oriented x3 Limitations: no limitations Other: Female tech in room during examination. HENMT: Head: normal to inspection Ears: external ears normal General nose exam: Normal external nose present Face and sinus: normal facial exam Mouth: Yes Normal oral and palatal mucosa present Teeth image: 1. Tender base of the surrounding tooth with mucosa slightly swollen and erythematous. Throat: posterior oropharynx normal Resp: Effort & Inspection: normal respiratory effort Auscultation: clear to auscultation bilaterally Cardio: Rate: regular rate Rhythm: regular rhythm GI: GI Palp: Yes Soft to palpation and No Tenderness to palpation present (GI) Auscultation: normal bowel sounds Back/Spine/Pelvis: Cervical Spine: cervical ROM normal Thoracic/Lumbar Spine: thoraco-lumbar ROM normal Skin: General skin exam: normal color Rashes: no rashes Neuro: General: patient oriented x3, moves all extremities, no focal motor deficits and CN's II-XI intact bilaterally Speech: normal speech Gait exam (Neuro): Normal gait present Extrem: General: normal to inspection and no clubbing, cyanosis or edema Psych: Mental Status: mental status grossly normal Affect: normal affect Attitude: cooperative Discharge Plan Discharge Clinical Impression: Dental caries, Dental abscess Patient Disposition: Home, Self-Care Condition: Stable Instructions: Antibiotic Form, Dental Abscess (ED) Additional Instructions: Tylenol and or Motrin as needed for pain. Prescriptions:
--- NOTE | 2022-05-12 15:20 | PC.NURSE ---
erp at bedside with tech for chaperoned exam
[2022-05-12 15:50] VITALS: BP 105/71; PULSE 73; RESP 17; TEMP 36.6; O2SAT 100
== END 2022-05-12 15:51 | disposition home or self-care (01) ==
PROVIDERS: Emergency Provider Emergency Medicine; PCP Internal Medicine
DX: K02.9 Dental caries, unspecified (principal); K04.7 Periapical abscess without sinus; F17.200 Nicotine dependence, unspecified, uncomplicated
CPT/HCPCS: 99283

== ENCOUNTER 2022-07-07 17:59 | Emergency (ER) | payer OTHER, SELFPAY ==
[2022-07-07 18:37] VITALS: BP 131/63; PULSE 97; RESP 18; TEMP 36.1; O2SAT 98
--- NOTE | 2022-07-07 18:43 | ED.GENADULT ---
HPI - General Adult General Chief complaint: Unspecified Stated complaint: yeast infection spreading Time Seen by Provider: 07/07/22 18:01 Source: patient Mode of arrival: ambulatory Limitations: no limitations History of Present Illness HPI narrative: patient has some small areas of follicular lesions with surrounding area of erythema mildly tender and warm to touch currently no drainage no fever chills has similar lesions approximately 10 days ago and was treated with amoxicillin. Onset (ago): day(s) Severity: mild Related Data Home Medications Medication Instructions Recorded Confirmed sertraline 25 mg tablet 25 mg PO DAILY 10/11/21 07/07/22 ergocalciferol (vitamin D2) 1,250 50,000 unit PO WEEKLY 11/11/21 07/07/22 mcg (50,000 unit) capsule polysaccharide iron complex 150 mg 150 mg PO DAILY 11/11/21 07/07/22 iron capsule Allergies Allergy/AdvReac Type Severity Reaction Status Date / Time No Known Allergies Allergy Verified 07/07/22 18:25 Review of Systems Review of Systems: All systems reviewed & are unremarkable except as noted in HPI and below PMFSH Past Medical History Medical History Anxiety Depression Surgical History Surgical History No history of previous surgery Family History Family History Grandparent Diabetes mellitus Acute myocardial infarction Carcinoma of colon Father Hypertension Cerebrovascular accident Social History Social History Smoking packs per day: 0.5 Smoking cigarettes per day: 10.0 Years smoked: 8 Smoking pack-years: 4.00 Smoking status: Current some day smoker Tobacco type: cigarettes Second hand tobacco smoke exposure: Yes Alcohol intake: former Substance use: never Substance use type: marijuana Additional living arrangements comments: LIVES W/CHILDREN Gender identity (if verbalized by the patient): Female Sexual Orientation (if Verbalized by the Patient): Straight or Heterosexual Spiritual care concerns: No Exam Const: General: cooperative, healthy appearing, comfortable, no acute distress and well developed HENMT: Face and sinus: normal facial exam Mouth: Yes Normal oral and palatal mucosa present Eyes: General: appearance normal, both eyes and all related structures Visual Britton: normal visual britton by confrontation EOM: EOMs intact bilaterally Chest: Chest palpation & inspection: normal inspection of the chest Resp: Effort & Inspection: normal respiratory effort Auscultation: clear to auscultation bilaterally Cardio: Jugular venous distension: no JVD Palpation: normal PMI Rate: regular rate Rhythm: regular rhythm GI: Inspection: normal to inspection Skin: Other: Follicular lesions on her forehead and her arms and on her lower abdomen with no drainage the area is warm and erythematous and tender to touch. Neuro: General: oriented to person, oriented to place and oriented to time Extrem: General: normal to inspection, full ROM and capillary refill normal Right lower extremity: normal to inspection and full ROM Psych: Appearance: grossly normal Mental Status: mental status grossly normal Course Course Emergency Course: Patient to receive p.o. Augmentin and mupirocin applied to affected areas. Vital Signs Vital signs: Vital Signs Temperature 36.1 C L 07/07/22 18:37 Pulse Rate 97 07/07/22 18:37 Respiratory Rate 18 07/07/22 18:37 Blood Pressure 131/63 07/07/22 18:37 Pulse Oximetry 98 07/07/22 18:37 Oxygen Delivery Room Air 07/07/22 18:37 Temperature 36.1 C L 07/07/22 18:37 Pulse Rate 97 07/07/22 18:37 Respiratory Rate 18 07/07/22 18:37 Blood Pressure 131/63 07/07/22 18:37 Pulse Oximetry 98 07/07/22 18:37 Oxygen Delivery Room Air 06/17
[2022-07-07] MEDS: AMOXICILLIN/CLAVULANATE K 875-125 MG TAB 1 TABLET PO (19:02)
[2022-07-07] MEDS: MUPIROCIN 2% OINT 22 GM TUBE 1 APPLIC TOPICAL (19:05)
[2022-07-07 19:17] VITALS: BP 115/75; PULSE 88; RESP 16; O2SAT 99
== END 2022-07-07 19:18 | disposition home or self-care (01) ==
PROVIDERS: Emergency Provider Emergency Medicine; PCP Internal Medicine
DX: L73.9 Follicular disorder, unspecified (principal); L03.90 Cellulitis, unspecified
CPT/HCPCS: 99283; A9270

== ENCOUNTER 2022-09-12 09:08 | Emergency (ER) | payer OTHER, SELFPAY ==
[2022-09-12 09:12] VITALS: BP 133/83; PULSE 108; RESP 18; TEMP 37.4; O2SAT 100
--- NOTE | 2022-09-12 09:39 | ED.FEVER ---
HPI - Fever General Chief Complaint: Fever Stated Complaint: Fever,Chills,Body aches,trouble breathing Time Seen by Provider: 09/12/22 09:13 Source: patient, family and RN notes reviewed Mode of arrival: ambulatory Limitations: no limitations History of Present Illness MD elicited complaint: fever Onset (ago): day(s) (3) Measured temperature: 101 C Exacerbating factors: nothing Relieving factors: ibuprofen and cold medicine Associated symptoms: myalgias, nasal congestion, sore throat and cough Treatments prior to arrival fever: ibuprofen Related Data Home Medications Medication Instructions Recorded Confirmed sertraline 25 mg tablet 25 mg PO DAILY 10/11/21 09/12/22 ergocalciferol (vitamin D2) 1,250 50,000 unit PO WEEKLY 11/11/21 09/12/22 mcg (50,000 unit) capsule polysaccharide iron complex 150 mg 150 mg PO DAILY 11/11/21 09/12/22 iron capsule Allergies Allergy/AdvReac Type Severity Reaction Status Date / Time No Known Allergies Allergy Verified 09/12/22 09:19 Review of Systems Review of Systems: All systems reviewed & are unremarkable except as noted in HPI and below Constitutional: Constitutional: Reports no additional constitutional complaints and Reports fever(s) Eyes: Eyes: Reports no additional eye complaints ENT: Reports system reviewed and no additional complaints, except as documented, Reports nasal congestion and Reports sore throat Cardiovascular: Cardiovascular: Reports no additional cardiovascular complaints Respiratory: Respiratory: Reports no additional respiratory complaints Gastrointestinal: Gastrointestinal: Reports no additional gastrointestinal complaints Genitourinary: Genitourinary: Reports no additional female genitourinary complaints Musculoskeletal: Musculoskeletal: Reports no additional musculoskeletal complaints Integumentary/Breasts: Skin/Breast: Reports system reviewed and no additional complaints, except as docu Neurologic: Reports system reviewed and no additional complaints, except as documented Psychiatric: Psychiatric: Reports no additional psychiatric complaints Endocrine: Endocrine: Reports no additional endocrine complaints Hematologic/Lymphatic: Hematologic/Lymphatic: Reports no additional hematologic/lymphatic complaints Allergic/Immunologic: Allergic/Immunologic: Reports no additional allergic/immunologic complaints PMFSH Past Medical History Medical History Anxiety Depression Viral syndrome Surgical History Surgical History No history of previous surgery Family History Family History Grandparent Diabetes mellitus Acute myocardial infarction Carcinoma of colon Father Hypertension Cerebrovascular accident Social History Social History Smoking packs per day: 0.5 Smoking cigarettes per day: 10.0 Years smoked: 8 Smoking pack-years: 4.00 Smoking status: Current some day smoker Tobacco type: cigarettes Second hand tobacco smoke exposure: Yes Alcohol intake: former Substance use: never Substance use type: marijuana Additional living arrangements comments: LIVES W/CHILDREN Gender identity (if verbalized by the patient): Female Sexual Orientation (if Verbalized by the Patient): Straight or Heterosexual Spiritual care concerns: No Exam Const: General: no acute distress and well nourished Nutritional Appearance: well nourished Orientation/consciousness: patient oriented x3 Limitations: no limitations HENMT: Head: normal to inspection Ears: external ears normal, TM's normal bilaterally and EAC's normal Face/Nose/Sinus: Normal external nose present, Normal nares present, normal facial exam and sinuses nontender Face and sinus: normal facial exam and sinuses nontender Mouth: Yes Normal ora
[2022-09-12] MEDS: ACETAMINOPHEN 325 MG TABLET 650 MG PO (09:58)
[2022-09-12 10:19] VITALS: PULSE 100; O2SAT 99
[2022-09-12 10:20] VITALS: TEMP 37.2
[2022-09-12] MEDS: guaiFENesin 12 HR 600 MG TABCR PO (10:28)
[2022-09-12 10:33] LABS: SARS-CoV-2 RNA PCR Negative (Negative)
[2022-09-12 10:48] LABS: Influenza A QL RT-PCR Positive (Negative); Influenza B QL RT-PCR Negative (Negative)
[2022-09-12 10:58] VITALS: BP 114/77; PULSE 90; RESP 18; TEMP 37.2; O2SAT 98
== END 2022-09-12 11:09 | disposition home or self-care (01) ==
PROVIDERS: Emergency Provider Emergency Medicine; PCP Internal Medicine
DX: J11.1 Influenza due to unidentified influenza virus with other respiratory manifestations (principal); Z20.822 Contact with and (suspected) exposure to COVID-19
CPT/HCPCS: 87502; 99283; A9270; U0003; U0005

== ENCOUNTER 2023-02-14 14:58 | Outpatient (CLI) | payer OTHER, SELFPAY ==
--- NOTE | ~2023-02-14 | XR_ITS ---
EXAMINATION: XR chest 2V Exam Date/Time: 02/14/2023 15:34 CDT HISTORY: FEVER,COUGH,X1WK Comparison: 05/15/2020. RESULT: Lines, tubes, and devices: None. Lungs and pleura: Bilateral mid and lower lung reticulonodular opacities with cuffing. Cardiomediastinal silhouette: Stable. Other: No acute osseous or upper abdominal finding. IMPRESSION: Pulmonary opacities may represent bronchiolitis, as can be seen with atypical infection, asthma, aspi ration, and small airways disease. Reviewed, dictated and finalized at location K. IMPRESSION: Pulmonary opacities may represent bronchiolitis, as can be seen with atypical i nfection, asthma, aspiration, and small airways disease.
[2023-02-14 16:04] LABS: Influenza A QL RT-PCR Negative (Negative); Influenza B QL RT-PCR Negative (Negative); SARS-CoV-2 RNA PCR Negative (Negative)
[2023-02-14 16:16] LABS: Basophils Absolute Auto 0.07 K/mm3 (0.00-0.10); Basophils Percent Auto 0.8 % (0.0-1.0); Eosinophils Absolute Auto 0.25 K/mm3 (0.02-0.50); Eosinophils Percent Auto 2.8 % (1.0-6.0); Hematocrit 38.6 % (35.0-49.0); Hemoglobin 12.2 g/dL (12.0-15.0); Immature Granulocyte Absolute 0.04 K/mm3 (0.00-0.00); Immature Granulocyte Percent A 0.4 % (0.0-0.0); Lymphocytes Absolute Auto 2.53 K/mm3 (1.10-4.50); Lymphocytes Percent Auto 28.5 % (18.0-42.0); Mean Corpuscular HGB Conc 31.6 g/dL (32.0-36.0); Mean Corpuscular Volume 72.7 fL (78.0-102.0); Mean Platelet Volume 9.5 fl (9.2-11.8); Monocytes Absolute Auto 0.64 K/mm3 (0.10-0.90); Monocytes Percent Auto 7.2 % (2.0-11.0); Neutrophils Absolute Auto 5.4 K/mm3 (1.7-7.2); Neutrophils Percent Auto 60.3 % (50.0-70.0); Platelet Count Result 345 K/mm3 (150-420); Red Blood Count 5.31 M/mm3 (4.20-5.40); Red Cell Distribution Width 17.8 % (11.6-14.4); White Blood Count 8.9 K/mm3 (4.8-10.8)
[2023-02-14 16:30] LABS: Alanine Aminotransferase 17 U/L (14-59); Albumin Level 3.7 g/dL (3.4-5.0); Alkaline Phosphatase 83 U/L (46-116); Anion Gap 7 mmol/L (8-16); Aspartate Amino Transferase 12 U/L (15-37); Bilirubin,Total 0.2 mg/dL (0.00-1.00); Blood Urea Nitrogen 17 mg/dL (7-18); Calcium 9.1 mg/dL (8.5-10.1); Carbon Dioxide 30 mmol/L (21-32); Chloride 103 mmol/L (98-108); Estimated Glomerular Filt Rate 59; Glucose 96 mg/dL (70-99); Osmolality Calculated 291 mOsm/kg (285-295); Potassium 4.5 mmol/L (3.5-5.1); Sodium 140 mmol/L (136-145); Total Protein 7.1 g/dL (6.4-8.2)
[2023-02-14 16:32] LABS: Appearance Urine Slightly Cloudy (Clear); Bilirubin Urine Negative (Negative); Blood Urine Trace-Intact (Negative); Color Urine Light Yellow (Yellow); Glucose Urine UA Negative (Negative); Ketones Urine Negative (Negative); Leukocyte Esterase Ur 1+ LEU/UL (Negative); Nitrate Urine Positive (Negative); Protein Urine Negative (Negative); Specific Grav Ur 1.015 (1.010-1.020); Urobilinogen Urine 0.2 mg/dL (0.2-1.0)
[2023-02-14 16:35] LABS: Add Urine Microscopic? YES; RBC Urine 0-2 /hpf (0-2); Squamous Epithelial Cell Urine Few /hpf (Few)
[2023-02-14 16:36] LABS: Bacteria Urine 3+ /hpf
[2023-02-14 16:37] LABS: CRP < 0.5 mg/dL (0.0-0.9)
[2023-02-15 11:42] LABS: Ferritin 11 ng/mL (8-252); Iron 48 ug/dL (50-170); Percent Iron Saturation 10 % (12-57)
== END 2023-02-14 14:59 | disposition home or self-care (01) ==
LOC: CHSLAB 15:03
PROVIDERS: PCP Internal Medicine; Visit Provider Internal Medicine
DX: U07.1 COVID-19 (principal); R50.9 Fever, unspecified; D64.9 Anemia, unspecified; R82.90 Unspecified abnormal findings in urine; R91.8 Other nonspecific abnormal finding of lung field
CPT/HCPCS: 36415; 71046; 80053; 81001; 82728; 83036; 83540; 83550; 85025; 86140; 87077; 87086; 87088; 87186; 87636

== ENCOUNTER 2024-09-12 21:00 | Emergency (ER) | payer OTHER, SELFPAY ==
[2024-09-12 21:03] VITALS: BP 137/86; PULSE 111; RESP 18; TEMP 36.9; O2SAT 100
--- NOTE | 2024-09-12 21:07 | ED.GENADULT ---
HPI - General Adult General Chief complaint: Urogenital-Female Stated complaint: urogenital female Time Seen by Provider: 09/12/24 21:02 History of Present Illness HPI narrative: Yuliya is a 28F with a PM of pyelonephritics, sepsis, and anxiety that presented to the ED with a worsening rash in her groin. Related Data Home Medications Medication Instructions Recorded Confirmed sertraline 25 mg tablet 25 mg PO DAILY 10/11/21 09/12/24 hydroxyzine HCl 50 mg tablet 50 mg PO QID 09/12/24 09/12/24 lamotrigine 25 mg tablet 25 mg PO DAILY 09/12/24 09/12/24 quetiapine 25 mg tablet 25 mg PO BID 09/12/24 09/12/24 zolpidem 10 mg tablet 10 mg PO HS 09/12/24 09/12/24 Allergies Allergy/AdvReac Type Severity Reaction Status Date / Time No Known Allergies Allergy Verified 09/12/24 21:54 Review of Systems Review of Systems: All systems reviewed & are unremarkable except as noted in HPI and below PMFSH Past Medical History Medical History Anxiety Depression Viral syndrome Surgical History Surgical History No history of previous surgery Family History Family History Grandparent Diabetes mellitus Acute myocardial infarction Carcinoma of colon Father Hypertension Cerebrovascular accident Social History Social History Smoking packs per day: 1 Smoking cigarettes per day: 20.0 Years smoked: 8 Smoking pack-years: 8.00 Smoking status: Current every day smoker Tobacco type: cigarettes Second hand tobacco smoke exposure: Yes Alcohol intake: former Substance use: never Substance use type: marijuana Living arrangements: with family Additional living arrangements comments: LIVES W/CHILDREN Gender identity (if verbalized by the patient): Female Sexual Orientation (if Verbalized by the Patient): Straight or Heterosexual Spiritual care concerns: No Exam Const: General: cooperative, healthy appearing, comfortable, no acute distress, well developed, alert, awake and Physically active Orientation/consciousness: oriented to person, oriented to place and oriented to time HENMT: Head: normal to inspection, normocephalic and atraumatic Ears: hearing grossly normal bilaterally and external ears normal Face/Nose/Sinus: Normal external nose present Eyes: General: appearance normal, both eyes and all related structures Periorbital: periorbital findings normal Sclera: sclerae normal Pupils: Equal, round and reactive pupils present Neck: Neck: normal visual inspection Chest: Chest palpation & inspection: normal inspection of the chest Resp: Effort & Inspection: normal respiratory effort, able to speak in complete sentences and no respiratory distress Cardio: Jugular venous distension: no JVD : Speculum Exam - Cervix: normal appearance of the cervix OB/external & speculum: herpetic lesions Other: Multiple round painful lesions, some open blisters some closed Skin: General skin exam: normal color and no rashes or lesions noted Neuro: General: oriented to person, oriented to place and oriented to time Cranial nerves: Yes Equal, round and reactive pupils present Extrem: General: normal to inspection Course Course Emergency Course: Labs showed only a mild elevated CRP and mild hypokalemia. She was advised to eat more fruit for this. Vital Signs Vital signs: Vital Signs Temperature 98.5 F 09/12/24 21:03 Pulse Rate 111 H 09/12/24 21:03 Respiratory Rate 18 09/12/24 21:03 Blood Pressure 137/86 09/12/24 21:03 Pulse Oximetry 100 09/12/24 21:03 Oxygen Delivery Room Air 09/12/24 21:03 Temperature 98.5 F 09/12/24 21:03 Pulse Rate 111 H 09/12/24 21:03 Respiratory Rate 18 09/12/24 21:03 Blood Pressure 137/86 09/12/24 21:03 Pulse Oximetry 100 09/12/24 21:03 Oxygen Delivery Room Air 09/12/24 21:03 Medical Decision Making Vital Signs Vital Signs: Vital Signs Temperature 98.5 F 09/12/24 21:03 Pulse Rate 111 H 09/12/24 21:03 Respiratory Rate 18 09/12/24 21:03 Blood Pressure 137/86 09/12/24 21:03 Pulse Oximetry 100 09/12/24 21:03 Oxygen Delivery Room Air 09/12/24 21:03 Temperature 98.5 F 09/12/24 21:03 Pulse Rate 111 H 09/12/24 21:03 Respiratory Rate 18 09/12/24 21:03 Blood Pressure 137/86 09/12/24 21:03 Pulse Oximetry 100 09/12/24 21:03 Oxygen Delivery Room Air 09/12/24 21:03 Lab Data 09/12/24 21:40 09/12/24 21:40 Labs: Lab Results 09/12/24 09/12/24 Range/Units 21:16 21:40 WBC 6.6 (4.8-10.8) K/mm3 RBC 5.31 (4.20-5.40) M/mm3 Hgb 13.8 (12.0-15.0) g/dL Hct 40.4 (35.0-49.0) % MCV 76.1 L (78.0-102.0) fL MCH 26.0 L (27.0-31.0) pg MCHC 34.2 (32-36) g/dL RDW 16.2 H (11.6-14.4) % Plt Count 216 (150-420) K/mm3 MPV 9.5 (9.2-11.8) fl Immature Gran % (Auto) 0.3 H (0.0-0.0) % Neut % (Auto) 67.5 (50.0-70.0) % Lymph % (Auto) 18.2 (18.0-42.0) % Randall % (Auto) 12.9 H (2.0-11.0) % Eos % (Auto) 0.5 L (1.0-6.0) % Baso % (Auto) 0.6 (0.0-1.0) % Lymph # (Auto) 1.20 (1.10-4.50) K/mm3 Randall # (Auto) 0.85 (0.10-0.90) K/mm3 Eos # (Auto) 0.03 (0.02-0.50) K/mm3 Baso # (Auto) 0.04 (0.00-0.10) K/mm3 Abs Immat Gran (auto) 0.02 H (0.00-0.00) K/mm3 Absolute Neuts (auto) 4.44 (1.70-7.20) K/mm3 Absolute Nucleated RBC 0.00 (0.00-0.00) K/mm3 Nucleated RBC % 0.0 (0-0.0) % Sodium 139 (136-145) mmol/L Potassium 3.2 L (3.5-5.1) mmol/L Chloride 102 (98-108) mmol/L Carbon Dioxide 28 (21-32) mmol/L Anion Gap 9 (4-12) mmol/L BUN 7 (7-18) mg/dL Creatinine 0.88 (0.55-1.02) mg/dL Estim Creat Clear Calc 88 ml/min Estimated GFR > 60 (59 - ) Glucose 109 H (70-99) mg/dL Calculated Osmolality 287 (285-295) mOsm/kg Calcium 8.9 (8.5-10.1) mg/dL Total Bilirubin 0.3 (0.00-1.00) mg/dL AST 11 L (15-37) U/L ALT 13 L (14-59) U/L Alkaline Phosphatase 62 (46-116) U/L C-Reactive Protein 1.5 H (0.0-0.9) mg/dL Total Protein 6.7 (6.4-8.2) g/dL Albumin 3.6 (3.4-5.0) g/dL Urine Color Light yellow (Yellow) Urine Appearance Clear (Clear) Urine pH 6.0 (5.0-8.0) Ur Specific Rinard >= 1.030 H (1.010-1.020) Urine Protein Trace H (Negative) Urine Glucose (UA) Negative (Negative) Urine Ketones 1+ H (Negative) Ur Blood (Man) Trace-intact H (Negative) Urine Nitrate Negative (Negative) Urine Bilirubin Negative (Negative) Urine Urobilinogen 0.2 (0.2-1.0) mg/dL Leukocyte Esterase Rfl 1+ H (Negative) JUAN/UL Urine RBC 6-10 H (0-2) /hpf Urine WBC 10-15 H (0-3) /hpf Ur Squamous Epith Cells Rare (Few) /hpf Urine Bacteria 1+ H (None) /hpf Urine Test Negative C. trachomatis (PCR) Pending N. gonorrhoeae (PCR) Pending T. vaginalis (PCR) Pending Discharge Plan Discharge Clinical Impression: Genital herpes Patient Disposition: Home, Self-Care Condition: Stable Instructions: Genital Herpes Infection (ED) Prescriptions: New valacyclovir 1 gram tablet 1,000 mg PO Q12H Qty: 19 0RF No Action quetiapine 25 mg tablet 25 mg PO BID hydroxyzine HCl 50 mg tablet 50 mg PO QID lamotrigine 25 mg tablet 25 mg PO DAILY zolpidem 10 mg tablet 10 mg PO HS sertraline 25 mg Tablet 25 mg PO DAILY Follow-up/Referrals: Sandeep Berry MD [Primary Care Provider] -
[2024-09-12 21:43] LABS: Basophils Absolute Auto 0.04 K/mm3 (0.00-0.10); Basophils Percent Auto 0.6 % (0.0-1.0); Eosinophils Absolute Auto 0.03 K/mm3 (0.02-0.50); Eosinophils Percent Auto 0.5 % (1.0-6.0); Hematocrit 40.4 % (35.0-49.0); Hemoglobin 13.8 g/dL (12.0-15.0); Immature Granulocyte Absolute 0.02 K/mm3 (0.00-0.00); Immature Granulocyte Percent A 0.3 % (0.0-0.0); Lymphocytes Percent Auto 18.2 % (18.0-42.0); Mean Corpuscular HGB Conc 34.2 g/dL (32-36); Mean Corpuscular Volume 76.1 fL (78.0-102.0); Mean Platelet Volume 9.5 fl (9.2-11.8); Monocytes Absolute Auto 0.85 K/mm3 (0.10-0.90); Monocytes Percent Auto 12.9 % (2.0-11.0); Neutrophils Absolute Auto 4.44 K/mm3 (1.70-7.20); Neutrophils Percent Auto 67.5 % (50.0-70.0); Platelet Count Result 216 K/mm3 (150-420); Red Blood Count 5.31 M/mm3 (4.20-5.40); Red Cell Distribution Width 16.2 % (11.6-14.4); White Blood Count 6.6 K/mm3 (4.8-10.8)
[2024-09-12 21:44] LABS: Add Urine Microscopic? YES; Appearance Urine Clear (Clear); Bilirubin Urine Negative (Negative); Blood Urine Trace-intact (Negative); Color Urine Light Yellow (Yellow); Glucose Urine UA Negative (Negative); Ketones Urine 1+ (Negative); Leukocyte Esterase Ur 1+ LEU/UL (Negative); Nitrate Urine Negative (Negative); Protein Urine Trace (Negative); Specific Grav Ur >= 1.030 (1.010-1.020); Urobilinogen Urine 0.2 mg/dL (0.2-1.0)
[2024-09-12 21:50] LABS: Bacteria Urine 1+ /hpf; Pregnancy On Board Control Positive; Squamous Epithelial Cell Urine Rare /hpf (Few); Urine Pregnancy Test Negative
[2024-09-12 22:03] LABS: Alanine Aminotransferase 13 U/L (14-59); Albumin Level 3.6 g/dL (3.4-5.0); Alkaline Phosphatase 62 U/L (46-116); Anion Gap 9 mmol/L (4-12); Aspartate Amino Transferase 11 U/L (15-37); Bilirubin,Total 0.3 mg/dL (0.00-1.00); Blood Urea Nitrogen 7 mg/dL (7-18); CRP 1.5 mg/dL (0.0-0.9); Calcium 8.9 mg/dL (8.5-10.1); Carbon Dioxide 28 mmol/L (21-32); Chloride 102 mmol/L (98-108); Estimated CRCL calculation 88 ml/min; Estimated Glomerular Filt Rate > 60; Glucose 109 mg/dL (70-99); Osmolality Calculated 287 mOsm/kg (285-295); Potassium 3.2 mmol/L (3.5-5.1); Sodium 139 mmol/L (136-145); Total Protein 6.7 g/dL (6.4-8.2)
[2024-09-12] MEDS: valACYclovir HCL 500 MG TABLET 1000 MG PO (22:04)
[2024-09-12 22:22] VITALS: BP 118/82; PULSE 98; RESP 18; TEMP 37.1; O2SAT 99
--- NOTE | 2024-09-15 12:17 | PC.NURSE ---
final urine culture reviewed. no growth isolated. no change in plan of care
[2024-09-16 08:00] LABS: Trichomonas Vag PCR NOT DETECTED (NOT DETECTE)
[2024-09-16 08:22] LABS: Chlamydia trachomatis NOT DETECTED (NOT DETECTE); Neisseria gonorrhoeae PCR NOT DETECTED (NOT DETECTE)
== END 2024-09-12 22:28 | disposition home or self-care (01) ==
PROVIDERS: Emergency Provider Family Medicine; PCP Internal Medicine
DX: A60.00 Herpesviral infection of urogenital system, unspecified (principal); F17.210 Nicotine dependence, cigarettes, uncomplicated; Z79.899 Other long term (current) drug therapy
CPT/HCPCS: 36415; 80053; 81001; 81025; 85025; 86140; 86695; 86696; 87086; 87491; 87591; 87661; 99284; A9270

== ENCOUNTER 2024-10-06 01:30 | Emergency (ER) | payer OTHER, SELFPAY ==
[2024-10-06 01:36] VITALS: BP 128/87; PULSE 98; RESP 20; TEMP 36.1; O2SAT 100
[2024-10-06 02:09] LABS: Strep Group A RT-PCR Not Detected (Negative)
--- NOTE | 2024-10-06 02:22 | ED.URI ---
HPI - URI/Sore Throat General Chief Complaint: Upper Respiratory Infection Stated Complaint: upper respiratory Time Seen by Provider: 10/06/24 01:54 Source: patient Mode of arrival: ambulatory Limitations: no limitations History of Present Illness HPI Narrative: this is a 29-year-old female with a 10 day history of cough nasal congestion a postnasal drip with no shortness of no audible wheezes has been having low-grade fever and chills at currently afebrile no nausea vomiting no chest pain. MD elicited complaint: cough, sore throat and nasal congestion Onset (ago): week(s) Consistency: constant Severity: mild Description of mucous: clear Exacerbating factors: nothing Related Data Home Medications ?Medication ?Instructions ?Recorded ?Confirmed ?Last Taken ?Type sertraline 25 mg tablet 25 mg PO DAILY 10/11/21 09/12/24 11/18/21 History hydroxyzine HCl 50 mg tablet 50 mg PO QID 09/12/24 09/12/24 Unknown History lamotrigine 25 mg tablet 25 mg PO DAILY 09/12/24 09/12/24 Unknown History quetiapine 25 mg tablet 25 mg PO BID 09/12/24 09/12/24 Unknown History zolpidem 10 mg tablet 10 mg PO HS 09/12/24 09/12/24 Unknown History Allergies Allergy/AdvReac Type Severity Reaction Status Date / Time No Known Allergies Allergy Verified 10/06/24 01:47 Review of Systems Review of Systems: All systems reviewed & are unremarkable except as noted in HPI and below PMFSH Past Medical History Medical History Viral syndrome Anxiety Depression Surgical History Surgical History No history of previous surgery Family History Family History Grandparent Diabetes mellitus Acute myocardial infarction Carcinoma of colon Father Hypertension Cerebrovascular accident Social History Social History Smoking packs per day: 1 Smoking cigarettes per day: 20.0 Years smoked: 8 Smoking pack-years: 8.00 Smoking status: Current every day smoker Tobacco type: cigarettes Second hand tobacco smoke exposure: Yes Alcohol intake: former Substance use: never Substance use type: marijuana Living arrangements: with family Additional living arrangements comments: LIVES W/CHILDREN Gender identity (if verbalized by the patient): Female Sexual Orientation (if Verbalized by the Patient): Straight or Heterosexual Spiritual care concerns: No Exam Const: General: healthy appearing and no acute distress Nutritional Appearance: well nourished Orientation/consciousness: patient oriented x3 Limitations: no limitations HENMT: Head: normal to inspection Eyes: Conjunctivae: conjunctivae normal Neck: Neck: normal visual inspection, no lymphadenopathy and no meningeal signs Chest: Chest palpation & inspection: normal inspection of the chest Resp: Effort & Inspection: normal respiratory effort Auscultation: clear to auscultation bilaterally Cardio: Rate: regular rate Rhythm: regular rhythm GI: GI Palp: Yes Soft to palpation Auscultation: normal bowel sounds Course Course Emergency Course: Strep performed and negative, RSV COVID influenza performed and reviewed with patient. Vital Signs Vital signs: Vital Signs Oxygen Delivery Room Air 10/06/24 01:30 Temperature 36.1 C L 10/06/24 01:36 Pulse Rate 98 10/06/24 01:36 Respiratory Rate 20 10/06/24 01:36 Blood Pressure 128/87 10/06/24 01:36 Pulse Oximetry 100 10/06/24 01:36 Oxygen Delivery Room Air 10/06/24 01:36 MDM - URI/Sore Throat Lab Data Labs: Lab Results 10/06/24 Range/Units 01:46 Influenza A (RT-PCR) Pending Influenza B (RT-PCR) Pending RSV (RT-PCR) Pending SARS-CoV-2 RNA (RT-PCR) Pending Group A Strep (PCR) Not detected (Negative) Critical Care Time Critical Care Time Critical Care Time: No Discharge Plan Discharge Clinical Impression: Sinusitis Patient Disposition: Home, Self-Care Condition: Stable Instructions: Antibiotic Form, Sinusitis (ED) Additional Instructions: Advised patient to take medication as prescribed and follow up with primary if symptoms persist or worsen. Patient Language: Luxembourgish Prescriptions: No Action quetiapine 25 mg tablet 25 mg PO BID hydroxyzine HCl 50 mg tablet 50 mg PO QID lamotrigine 25 mg tablet 25 mg PO DAILY zolpidem 10 mg tablet 10 mg PO HS valacyclovir 1 gram tablet 1,000 mg PO Q12H Qty: 19 0RF sertraline 25 mg Tablet 25 mg PO DAILY Follow-up/Referrals: Sandeep Berry MD [Primary Care Provider] -
[2024-10-06 02:25] LABS: Influenza A QL RT-PCR Negative (Negative); Influenza B QL RT-PCR Negative (Negative); RSV RNA, RT-PCR Negative (Negative); SARS-CoV-2 RNA PCR Negative (Negative)
[2024-10-06] MEDS: AZITHROMYCIN 250 MG TABLET 500 MG PO (02:36)
--- OUTSIDE RECORDS SUMMARY | 2024-10-13 02:10 | XMS_ITS | Encounter Summary ---
Author Organization [facility] Address [address] [place] [address]. [place] [address] [place] [address] Care Team Providers Care Vice President Mission Integration Name Role Phone Unavailable Primary Care Provider Unavailabl e Encounter Details Date Type Department Care Team (Late st Contact Info) Description 09/03/[address] 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
--- OUTSIDE RECORDS SUMMARY | 2024-10-13 02:10 | XMS_ITS ---
Author Organization [facility] Address [address] [place] [address] Care Team Providers Care Migratory Farm Hand Name Role Phone Dee Smith Primary Care Provider [phone] Eddie Boyer [phone] REASON FOR VISIT On CRU- Physical Medications Medication SIG (Take, Route, Frequency, Duration) Notes Start Date End Date Status hydrOXYzine Pamoate 25 MG 2 Capsules Ora lly every 4 hours Active Multivitamin - 1 tablet Orally Once a day Active Encounters Encounter Location Date Provider Diagnosis [place] [address] [place] [address] 05/23/2024 Eddie Boyer Plan Of Treatment No Information Progress Notes * Miri RYANDOB:1995 (29 yo F)Acc No.[id number]:05/23/2024 UNLOCKED PROGRESS NOTE Patient:Miri BOGGS Provider:?Eddie Boyer MSN, SLEEP TECH, FN P-C :1995???Age:28 Y???Sex:Female D ate:05/23/2024 Phone: Address:[address] [place], [place] [address] Pcp:Dee Smith Subjective: * Chief Complaints: * ???1. On CRU- Physical. * Medical History:? * Medications:?Taking hydrOXYz ine Pamoate 25 MG Capsule 2 Capsules Orally every 4 hours , Taking Multivitamin - Tablet 1 tablet Orally Once a day Objective: * Vitals:? Assessment: Plan: * Treatment: * * Electronic signature of Annabelle Boyer APRN, [id number] on 10/13/2024 at 02:10 AM TREE SCOUT Sign off status: Pending * Provider:?Markel Dominguez, SLEEP TECH, DIRECTOR OF COMMUNITY SERVICES-C Date:?05/23/2024 Generated for Lamberto valentine/Ahmet/Lucy on:?10/13/2024 02:10 AM TREE SCOUT
--- OUTSIDE RECORDS SUMMARY | 2024-10-13 02:10 | XMS_ITS | Encounter Summary ---
Author Organization [facility] Address [address] [place] [address]. [place], [place] [address] [place] [address] Care Team Providers Care Microfilm Camera Operator Name Role Phone Unavailable Primary Care Provider Unavailabl e Encounter Details Date Type Department Care Team (Late st Contact Info) Description 01/13/1997 Abstract SFL CONVERSION [address] [place] [address] , Generic Conversion, Social History Tobacco Use Types Packs/Day Years Used Date Smoking Tobacco: Never Assessed Comments Unknown Sex and Gender Information Value Date Recorded Sex Assigned at Not on file Legal Sex Female 6:00 PM PLAYROOM ATTENDANT Gender Identity Not on file Sexual Orientation Not on file documented as of this encounter Plan of Treatment Not on file documented as of this encounter Visit Diagnoses Not on filedocumented in this encounter
--- OUTSIDE RECORDS SUMMARY | 2024-10-13 02:10 | XMS_ITS | Clinical Summary ---
Author Organization [facility] Address [address] [place] [address]. [place], [place] [address] [place] [address] Care Team Providers Care Fur Joiner Name Role Phone Unavailable Primary Care Provider Unavailabl e Social History Tobacco Use Types Packs/Day Years Used Date Smoking Tobacco: Never Assessed Comments Unknown Sex and Gender Information Value Date Recorded Sex Assigned at Not on file Legal Sex Female 6:00 PM TALENT ACQUISITION COORDINATOR Gender Identity Not on file Sexual Orientation Not on file Plan of Treatment Health Maintenance Due Date Last Done Comments Cervical Cancer Screening Pa p Smear (Age 21 to 29) Every 3 Years 1995 Cervical Cancer Screening 1995 Annual Physical 1998 Hepatitis C 2013 DTaP, Tdap and Td Vaccines ( 1 - Tdap) 2014 Hepatitis B Vaccines (1 of 3 - 19+ 3-dose series) 2014 COVID-19 Vaccine (2023-2 5 season) 2024 Influenza Adult (#1) 2024 HPV Vaccines Aged Out No longer eligi ble based on patient's age to complete this topic Meningococcal Vaccine Aged Out No javier ratna eligible based on patient's age to complete this topic Pneumococcal Vaccine: Pediat rics (0 to 5 Years) and At-Risk Patients (6 to 64 Years) Aged Out No longer eligible b ased on patient's age to complete this topic RSV Immunizations Under 20 Months Aged Out No longer eligible based on patient's age to complete this topic
--- OUTSIDE RECORDS SUMMARY | 2024-10-13 02:10 | XMS_ITS | Encounter Summary ---
Author Organization [facility] Address [address] [place] [address]. [place], [place] [address] [place] [address] Care Team Providers Care Facility Manager Name Role Phone Unavailable Primary Care Provider Unavailabl e Encounter Details Date Type Department Care Team (Late st Contact Info) Description 03/03/1999 Abstract SFL CONVERSION [address] [place] [address] , Generic Conversion, Social History Tobacco Use Types Packs/Day Years Used Date Smoking Tobacco: Never Assessed Comments Unknown Sex and Gender Information Value Date Recorded Sex Assigned at Not on file Legal Sex Female 6:00 PM TRANSMISSION MECHANIC Gender Identity Not on file Sexual Orientation Not on file documented as of this encounter Plan of Treatment Not on file documented as of this encounter Visit Diagnoses Not on filedocumented in this encounter
--- OUTSIDE RECORDS SUMMARY | 2024-10-13 02:10 | XMS_ITS | Referral Summary ---
Author Organization [facility] Address [address] [place] [address] Care Team Providers Care Hvac Field Service Technician Name Role Phone Unavailable Primary Care Provider Unavailabl e Source Comments [facility],non-owned Affiliates and Associated Physician Practices is amultiple site organization consisting of ambulatory clinics and hospital sitesin [place], [place], [place] and [place]. This disclosure is being madepursuant to the Care Everywhere program and may not contain all information available regarding this patient. Last updated 18.[employer] [facility] Allergies No known active allergies Medications Be aware that medications may not be up to date on this document. Always verify current medications with the patient. No known medications Social History Tobacco Use Types Packs/Day Years Used Date Smoking Tobacco: Never Assessed Sex and Gender Information Value Date Recorded Sex Assigned at Not on file Gender Identity Not on file Sexual Orientation Not on file Last Filed Vital Signs Vital Sign Reading Time Taken Comments Blood Pressure - - Pulse - - Temperature - - Respiratory Rate - - Oxygen Saturation - - Inhaled Oxygen Concentration - - Weight 83.2 kg (183 lb 6.4 oz) 09/21/2011 10:36 AM ELEMENTARY READING TUTOR Height 164.3 cm (5' 4.69 ) 09/21/2011 10:36 AM C Body Mass Index 30.82 09/21/2011 10:36 AM ELEMENTARY READING TUTOR Plan of Treatment Not on file
--- OUTSIDE RECORDS SUMMARY | 2024-10-13 02:10 | XMS_ITS | Encounter Summary ---
Author Organization [facility] Address [address] [place] [address]. [place], [place] [address] [place] [address] Care Team Providers Care Warehouse Attendant Name Role Phone Unavailable Primary Care Provider Unavailabl e Encounter Details Date Type Department Care Team (Late st Contact Info) Description 08/01/1996 Abstract SFL CONVERSION [address] [place] [address] , Generic Conversion, Social History Tobacco Use Types Packs/Day Years Used Date Smoking Tobacco: Never Assessed Comments Unknown Sex and Gender Information Value Date Recorded Sex Assigned at Not on file Legal Sex Female 6:00 PM GENERAL SALES MANAGER Gender Identity Not on file Sexual Orientation Not on file documented as of this encounter Plan of Treatment Not on file documented as of this encounter Visit Diagnoses Not on filedocumented in this encounter
--- OUTSIDE RECORDS SUMMARY | 2024-10-13 02:10 | XMS_ITS | Patient Health Record ---
Author Organization [facility] Address [address] [place] [address] Care Team Providers Care Repairer Evaporator Name Role Phone Dee Smith Primary Care Provider Eddie Boyer Unavailable [phone] Reason For Referral No Information Medications Medication SIG (Take, Route, Frequency, Duration) Notes Start Date End Date Status hydrOXYzine Pamoate 25 MG 2 Capsules Ora lly every 4 hours Active Multivitamin - 1 tablet Orally Once a day Active Plan Of Treatment No Information Insurance Providers Payer Name Payer Address Payer Phone Subscriber Number Group Number Insured Name Patient Relationship to Insured Coverage Start Date Coverage End Date [facility] Attn Claims Department [address] [place] [id number] Miri Kemp Self - patient is the insured 4
--- OUTSIDE RECORDS SUMMARY | 2024-10-13 02:10 | XMS_ITS | Encounter Summary ---
Author Organization [facility] Address [address] [place] [address] Care Team Providers Care Stratigrapher Name Role Phone Unavailable Primary Care Provider Unavailabl e Reason for Referral * Evaluate & Treat Specialty Diagnoses / Procedures Referred By Saravanan [email or web address] Referred To Contact [address] [address] Referral ID Status Reason Start Date Expiration Date Visits Re quested Visits Authorized BOILER OPERATOR Reason for Visit * Reason Comments Scoliosis Encounter Details Date Type Department Care Team (Late st Contact Info) Description 09/21/2011 10:31 AM HAIR BOILER OPERATOR - 09/21/2011 11:59 PM HAIR BOILER OPERATOR Hospital Encounter [facility] [address] [place] [address]. [place] [address] Victoriano Hdz MD [address] [place] [address] [place] [phone] Orthopedics Discharge Disposition: Home or Self Care Social History Tobacco Use Types Packs/Day Years Used Date Smoking Tobacco: Never Assessed Sex and Gender Information Value Date Recorded Sex Assigned at Not on file Gender Identity Not on file Sexual Orientation Not on file documented as of this encounter Last Filed Vital Signs Vital Sign Reading Time Taken Comments Blood Pressure - - Pulse - - Temperature - - Respiratory Rate - - Oxygen Saturation - - Inhaled Oxygen Concentration - - Weight 83.2 kg (183 lb 6.4 oz) 09/21/20 11 10:36 AM HAIR BOILER OPERATOR Height 164.3 cm (5' 4.69 ) 09/21/2011 1 0:36 AM HAIR BOILER OPERATOR Body Mass Index 30.82 09/21/2011 10:36 AM HAIR BOILER OPERATOR Body Mass Index Percentile 96.20% 09/21 10:36 AM HAIR BOILER OPERATOR Growth Chart: [facility] (Girls, 2- 20 Years) documented in this encounter Discharge Instructions * Patient Instructions* Susan Harden MD - 09/21/2011 11:48 AM HAIR BOILER OPERATOR 1. Back pain (724.5) XR BONE LENGTH SCANOGRAM, AMB REFERRAL TO PHYSICAL THERAPY Return appointment: 2 month(s) for a Routine (15 min) visit Medications prescribed: None Activity Restrictions: No activity restrictions School excuse: Patient had appointment on 09/21/2011 Test results can be obtained by contacting Brigid Kevin at [phone], extension [phone] Or Dee RAMIREZ at [phone]. If you have further questions about your visit, please contact Lexii. Call Nilda at [phone], extension 1, to schedule surgery. 09/21/2011 BOILER OPERATOR documented in this encounter Progress Notes * Susan Harden MD - 09/21/2011 12:31 PM CST PEDIATRIC ORTHOPAEDIC SPINE CLINIC NOTE NAME: Miri Kemp DATE OF SERVICE: 09/21/2011 DATE: 1995 PCP: Gerardo Goldsmith Chief Complaint Patient presents with ??? Scoliosis Subjective: Miri Kemp is a 15 y.o. female who presents with complaint of back - lumbar/sacral Radiation?: no. Loss of bowel/urine control? no. The symptoms began 2-3 years ago. She has had these symptoms for greater than 2 years. She describes the pain as sharp but only lasts a minute or two. The pain is a ggravated by movement. The pain is alleviated by changing position. The associated symptoms are none. She denies bowel/bladder problems, saddle anesthesia, progressive or severe lower extremity neurologic deficits. She states that this pain occurs about once a day and denies any night pain. She takes ibuprofen about 3 times per week. Treatments so far initiated by patient: Nonsteroidal with adequate response Previous problems: none Previous workup: none Previous treatments: none IMMUNIZATIONS: Immunization status: stated as current, but no records available. Past Medical History Diagnosis Date ??? Scoliosis No past surgical history on file. No current outpatient prescriptions on file. Allergies as of 09/21/2011 ??? (No Known Allergies) No family history on file. History Substance Use Topics ??? Smoking status: Not on file ??? Smokeless tobacco: Not on file ??? Alcohol Use: Patient lives with her parents. Miri does attend school, high school. She is currently in 10th grade and participates in [employer]. Review of Systems: History obtained from mother and the patient. A complete ROS was obtained and was negative except for that listed above. Physical Exam: Wt 183 lb 6.4 oz (97415 g) BMI 30.82 kg/m2 General appearance: alert, cooperative, no distress, oriented to person, place, and time, well appearing; she has good head control. Lungs: no rales or wheezes Heart: no edema Back: Inspection and palpation: ?? spine normal, symmetric ?? inspection of back is normal ?? no tenderness noted ?? normal flexion, extension, negative straight leg raise Head position: ?? centered Shoulder Position: ?? bilateral normal Chest wall abnormality: ?? normal Waist asymmetry: ?? Yes Patel forward bending: ?? thoracic - normal ?? lumbar - normal Muscle tone and ROM exam: ?? muscle tone normal without spasm full range of motion without pain Leg Length: ?? Right leg shorter Lower extremity RIGHT LEFT Strength: abductor 5/5; quadriceps 5/5; hamstrings 5/5; adductors 5/5; iliopsoas 5/5, anterior tibial 5/5; gastrocsoleus 5/5; EHL 5/5; peroneal posterior tibial 5/5 abductor 5/5; quadriceps 5/5; hamstrings 5/5; adductors 5/5; iliopsoas 5/5, anterior tibial 5/5; gastrocsoleus 5/5; EHL 5/5; peroneal posterior tibial 5/5 Sensation: normal normal Reflexes: Patella: R - 2+, Achilles: R - 2+, L - 2+ L - 2+ Extremities: Upper extremity exam shows normal and symmetric movement, normal range of motion Lower Extremity exam shows normal and symmetric movement, normal range of motion, no clonus Gait: Normal Radiology: Outside films reviewed: AP and lateral standing views of her thoracic and lumbar spine were reviewed. She does have a leg length difference which is approximately 1 inch, however we are unable to measure accurately due to the fact that its an outside film. She does not have any evidence of scoliosis. Assessment: 15 year old female with back pain, found to have a leg length discrepancy. Plan: 1. We discussed with the patient and her mother that she does have a leg length discrepancy which may be contributing to her back pain. We would like her to start some physical therapy to work on core strengthening, stretching and put together a home program to see if that improves her pain. We also will give her a 1/4 inch shoe lift for the right to see if that makes a difference. We will see her back in 2 months for a repeat clinical exam and xrays. 2. Treatment options discussed including: ?? Physical Therapy discussed and ordered, Shoe lift 3. Medications Prescribed: ?? NSAID prn 4. Activity Restrictions: ?? No activity restrictions 5. Follow up: Return visit in 2 month(s) with xray scanogram to evaluate leg lengths. BOILER OPERATOR * Jeimy Farrell LPN - 09/21/2011 10:38 AM CST # of children in family 2 order 2 grade 10 Recreational Activities: Volleyball and color guard Scoliosis first noticed by: PCP Selam (date) 2007 Pain relieved by stretch Worsened by: sitting and laying Radiation of sx none Bowel and Bladder sx none Previous xrays taken? Yes No family history of scoli BOILER OPERATOR documented in this encounter Miscellaneous Notes * Miscellaneous Scans - Document, Scanned - 10/17/2011 2:26 PM CST BOILER OPERATOR documented in this encounter Plan of Treatment Scheduled Referrals Name Type Priority Associated Diagnoses Orde r Schedule AMB REFERRAL TO PHYSICAL THERAPY Outpatient Referral Routine Back pain Ordered: 09/21/2011 documented as of this encounter Visit Diagnoses Diagnosis Back pain Backache, unspecified documented in this encounter
--- OUTSIDE RECORDS SUMMARY | 2024-10-13 02:10 | XMS_ITS | Clinical Summary ---
Author Organization [facility] [employer] Address [address] [place] [address] Care Team Providers Care Metal Precision Machine Assembler Name Role Phone Unavailable Primary Care Provider Unavailabl e Source Comments [facility] [employer],non-owned Affiliates and Associated Physician Practices is amultiple site organization consisting of ambulatory clinics and hospital sitesin [place], [place], [place] and [place]. This disclosure is being madepursuant to the Care Everywhere program and may not contain all information available regarding this patient. Last updated 18.[employer] Allergies No known active allergies Medications Be [...] (183 lb 6.4 oz) 09/21/2011 10:36 AM OPTICS TECHNICAL OFFICER Height 164.3 cm (5' 4.69 ) 09/21/2011 10:[address] Body Mass Index 30.82 09/21/2011 10:36 AM OPTICS TECHNICAL OFFICER Plan of Treatment Health Maintenance Due Date Last Done Comments PAP SMEAR 1995 HIV SCREENING 2010 HEPATITIS C SCREENING 10/01/2013 DTAP/TDAP/TD VACCINES (1 - Tdap) 2014 HEPATITIS B VACCINE (1 of 3 - 19+ 3-dose series) 2014 DEPRESSION SCREENING 10/16/2023 COVID-19 VACCINE (2023-2 5 season) 2024 INFLUENZA VACCINE (#1) 2024 ZOSTER VACCINE (1 of 2) 2045 HIB VACCINE Aged Out No longer eligi ble based on patient's age to complete this topic HPV VACCINE Aged Out No longer eligi ble based on patient's age to complete this topic MENINGOCOCCAL VACCINE Aged Out No javier ratna eligible based on patient's age to complete this topic PNEUMOCOCCAL VACCINE Aged Out No long er eligible based on patient's age to complete this topic
--- OUTSIDE RECORDS SUMMARY | 2024-10-13 02:10 | XMS_ITS | Patient Health Summary ---
Author Organization [facility] Address [address] [place] [address] Care Team Providers Care Collection Advisor Name Role Phone Unavailable Primary Care Provider Unavailabl e Note from [facility],non-owned Affiliates and Associated Physician Practices is amultiple site organization consisting of ambulatory clinics and hospital sitesin [place], [place], [place] and [place]. This disclosure is being madepursuant to the Care Everywhere program and may not contain all information available regarding this patient. Last updated 18.[facility] Allergies No known active allergies Medications Be [...] (183 lb 6.4 oz) 09/21/2011 10:36 AM RUBBER TUBING SPLICER Height 164.3 cm (5' 4.69 ) 09/21/2011 10:36 AM Elliott SILVA Body Mass Index 30.82 09/21/2011 10:36 AM RUBBER TUBING SPLICER
--- OUTSIDE RECORDS SUMMARY | 2024-10-13 02:10 | XMS_ITS | Encounter Summary ---
Author Organization [facility] Address [address] [place] [address]. [place], [place] [address] [place] [address] Care Team Providers Care Wardrobe Assistant Name Role Phone Unavailable Primary Care Provider Unavailabl e Encounter Details Date Type Department Care Team (Late st Contact Info) Description 01/09/1997 Abstract SFL CONVERSION [address] [place] [address] , Generic Conversion, Social History Tobacco Use Types Packs/Day Years Used Date Smoking Tobacco: Never Assessed Comments Unknown Sex and Gender Information Value Date Recorded Sex Assigned at Not on file Legal Sex Female 6:00 PM ALARM OPERATOR Gender Identity Not on file Sexual Orientation Not on file documented as of this encounter Plan of Treatment Not on file documented as of this encounter Visit Diagnoses Not on filedocumented in this encounter
--- OUTSIDE RECORDS SUMMARY | 2024-10-13 02:35 | XMS_ITS | Clinical Summary ---
Author Organization [facility] [employer] Address [address] [place] [address] Care Team Providers Care Sanitary Engineering Teacher Name Role Phone Unavailable Primary Care Provider Unavailabl e Source Comments [facility] [employer],non-owned Affiliates and Associated Physician Practices is amultiple site organization consisting of ambulatory clinics and hospital sitesin [place], [place], [place] and [place]. This disclosure is being madepursuant to the Care Everywhere program and may not contain all information available regarding this patient. Last updated 18.[employer] Allergies No known active allergies Medications Be [...] (183 lb 6.4 oz) 09/21/2011 10:36 AM BONE WORKER Height 164.3 cm (5' 4.69 ) 09/21/2011 10:[address] Body Mass Index 30.82 09/21/2011 10:36 AM BONE WORKER Plan of Treatment Health Maintenance Due Date [...]
--- OUTSIDE RECORDS SUMMARY | 2024-10-13 02:35 | XMS_ITS | Referral Summary ---
Author Organization [facility] [employer] Address [address] [place] [address] Care Team Providers Care Furniture Painter Name Role Phone Unavailable Primary Care Provider Unavailabl e Source Comments [facility] [employer],non-owned Affiliates and Associated Physician Practices is amultiple site organization consisting of ambulatory clinics and hospital sitesin [place], [place], [place] and [place]. This disclosure is being madepursuant to the Care Everywhere program and may not contain all information available regarding this patient. Last updated 18.[employer] Allergies No known active allergies Medications Be [...] (183 lb 6.4 oz) 09/21/2011 10:36 AM STORAGE CENTER MANAGER Height 164.3 cm (5' 4.69 ) 09/21/2011 10:36 AM C Body Mass Index 30.82 09/21/2011 10:36 AM STORAGE CENTER MANAGER Plan of Treatment Not on file
--- OUTSIDE RECORDS SUMMARY | 2024-10-13 02:36 | XMS_ITS | Encounter Summary ---
Author Organization [facility] Address [address] [place] [address]. [place], [place] [address] [place] [address] Care Team Providers Care Organic Chemist Name Role Phone Unavailable Primary Care Provider Unavailabl e Encounter Details Date Type Department Care Team (Late st Contact Info) Description 08/01/1996 Abstract SFL CONVERSION [address] [place] [address] , Generic Conversion, Social History Tobacco Use Types Packs/Day Years Used Date Smoking Tobacco: Never Assessed Comments Unknown Sex and Gender Information Value Date Recorded Sex Assigned at Not on file Legal Sex Female 6:00 PM SOLAR PHOTOVOLTAIC DESIGNER Gender Identity Not on file Sexual Orientation Not on file documented as of this encounter Plan of Treatment Not on file documented as of this encounter Visit Diagnoses Not on filedocumented in this encounter
--- OUTSIDE RECORDS SUMMARY | 2024-10-13 02:36 | XMS_ITS | Encounter Summary ---
Author Organization [facility] Address [address] [place] [address]. [place] [address] [place] [address] Care Team Providers Care Truck Driver Helper Name Role Phone Unavailable Primary Care Provider Unavailabl e Encounter Details Date Type Department Care Team (Late st Contact Info) Description 09/03/[address] [facility] [address] [place] [address] Gerardo Goldsmith MD [address] [place] [phone] Social History Tobacco Use Types Packs/Day Years Used Date Smoking Tobacco: Never Assessed Comments Unknown Sex and Gender Information Value Date Recorded Sex Assigned at Not on file Legal Sex Female 6:00 PM FULLERETTE Gender Identity Not on file Sexual Orientation Not on file documented as of this encounter Plan of Treatment Not on file documented as of this encounter Visit Diagnoses Diagnosis Backache Backache, unspecified documented in this encounter
--- OUTSIDE RECORDS SUMMARY | 2024-10-13 02:36 | XMS_ITS | Encounter Summary ---
Author Organization [facility] Address [address] [place] [address]. [place], [place] [address] [place] [address] Care Team Providers Care Ux Specialist Name Role Phone Unavailable Primary Care Provider Unavailabl e Encounter Details Date Type Department Care Team (Late st Contact Info) Description 03/03/1999 Abstract SFL CONVERSION [address] [place] [address] , Generic Conversion, Social History Tobacco Use Types Packs/Day Years Used Date Smoking Tobacco: Never Assessed Comments Unknown Sex and Gender Information Value Date Recorded Sex Assigned at Not on file Legal Sex Female 6:00 PM CAMPAIGN SPECIALIST Gender Identity Not on file Sexual Orientation Not on file documented as of this encounter Plan of Treatment Not on file documented as of this encounter Visit Diagnoses Not on filedocumented in this encounter
--- OUTSIDE RECORDS SUMMARY | 2024-10-13 02:36 | XMS_ITS | Encounter Summary ---
Author Organization [facility] Address [address] [place] [address] Care Team Providers Care Hospital Technician Name Role Phone Unavailable Primary Care Provider Unavailabl e Reason for Referral * Evaluate & Treat Specialty Diagnoses / Procedures Referred By Saravanan [email or web address] Referred To Contact [address] [address] Referral ID Status Reason Start Date Expiration Date Visits Re quested Visits Authorized CH ENGINE OPTIMIZATION STRATEGIST Reason for Visit * Reason Comments Scoliosis Encounter Details Date Type Department Care Team (Late st Contact Info) Description 09/21/2011 10:31 AM SEARCH ENGINE OPTIMIZATION STRATEGIST - 09/21/2011 11:59 PM SEARCH ENGINE OPTIMIZATION STRATEGIST Hospital Encounter [facility] Orthopedics [address] [place] [address]. [place] [address] Victoriano Hdz MD [address] [place] [address] [place] [id number] Orthopedics Discharge Disposition: Home or Self Care [...] lb 6.4 oz) 09/21/20 11 10:36 AM SEARCH ENGINE OPTIMIZATION STRATEGIST Height 164.3 cm (5' 4.69 ) 09/21/2011 1 0:36 AM SEARCH ENGINE OPTIMIZATION STRATEGIST Body Mass Index 30.82 09/21/2011 10:36 AM SEARCH ENGINE OPTIMIZATION STRATEGIST Body Mass Index Percentile 96.20% 09/21 10:36 AM SEARCH ENGINE OPTIMIZATION STRATEGIST Growth Chart: [facility] (Girls, 2- 20 Years) documented in this encounter Discharge Instructions * Patient Instructions* Susan Harden MD - 09/21/2011 11:48 AM SEARCH ENGINE OPTIMIZATION STRATEGIST 1. Back pain (724.5) XR BONE LENGTH SCANOGRAM, AMB REFERRAL TO PHYSICAL THERAPY Return appointment: 2 month(s) for a Routine (15 min) visit Medications prescribed: None Activity Restrictions: No activity restrictions School excuse: Patient had appointment on 09/21/2011 Test results can be obtained by contacting Brigid Kevin at [phone], extension [phone] Or Dee RAMIREZ at [phone]. If you have further questions about your visit, please contact Lexii. Call Nilda at [phone], extension [phone], to schedule surgery. 09/21/2011 CH ENGINE OPTIMIZATION STRATEGIST documented in this encounter Progress Notes * [...] currently in 10th grade and participates in [employer]. Review of Systems: History obtained from mother and the patient. A complete ROS was obtained and was negative except for that listed above. Physical Exam: Wt 183 lb 6.4 oz (08404 g) BMI 30.82 kg/m2 General appearance: alert, [...] with xray scanogram to evaluate leg lengths. CH ENGINE OPTIMIZATION STRATEGIST * Jeimy Farrell LPN - 09/21/2011 10:38 AM CST # of children in family 2 order 2 grade 10 Recreational Activities: Volleyball and color guard Scoliosis first noticed by: PCP Selam (date) 2007 Pain relieved by stretch Worsened by: sitting and laying Radiation of sx none Bowel and Bladder sx none Previous xrays taken? Yes No family history of scoli CH ENGINE OPTIMIZATION STRATEGIST documented in this encounter Miscellaneous Notes * Miscellaneous Scans - Document, Scanned - 10/17/2011 2:26 PM CST CH ENGINE OPTIMIZATION STRATEGIST documented in this encounter Plan of Treatment Scheduled Referrals Name Type Priority Associated Diagnoses Orde r Schedule AMB REFERRAL TO PHYSICAL THERAPY Outpatient Referral Routine Back pain Ordered: 09/21/2011 documented as of this encounter Visit Diagnoses Diagnosis Back pain Backache, unspecified documented in this encounter
--- OUTSIDE RECORDS SUMMARY | 2024-10-13 02:36 | XMS_ITS | Encounter Summary ---
Author Organization [facility] Address [address] [place] [address]. 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
--- OUTSIDE RECORDS SUMMARY | 2024-10-13 02:36 | XMS_ITS | Patient Health Summary ---
Author Organization [email or web address] Address [address] [place] [address] Care Team Providers Care Manager Drive Name Role Phone Unavailable Primary Care Provider Unavailabl e Note from [email or web address],non-owned Affiliates and Associated Physician Practices is amultiple site organization consisting of ambulatory clinics and hospital sitesin [place], [place]. This disclosure is being madepursuant to the Care Everywhere program and may not contain all information available regarding this patient. Last updated 18.[email or web address] Allergies No known active allergies Medications Be [...] (183 lb 6.4 oz) 09/21/2011 10:36 AM CLINICIAN ONCOLOGY Height 164.3 cm (5' 4.69 ) 09/21/2011 10:36 AM Elliott SILVA Body Mass Index 30.82 09/21/2011 10:36 AM CLINICIAN ONCOLOGY
--- OUTSIDE RECORDS SUMMARY | 2024-10-13 02:36 | XMS_ITS | Encounter Summary ---
Author Organization [facility] Address [address] [place] [address]. 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
--- OUTSIDE RECORDS SUMMARY | 2024-10-13 02:36 | XMS_ITS | Clinical Summary ---
Author Organization [facility] Address [address] [place] [address]. 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
== END 2024-10-06 02:39 | disposition home or self-care (01) ==
PROVIDERS: Emergency Provider Emergency Medicine; PCP Internal Medicine
DX: J32.9 Chronic sinusitis, unspecified (principal); F17.210 Nicotine dependence, cigarettes, uncomplicated; Z20.822 Contact with and (suspected) exposure to COVID-19
CPT/HCPCS: 87637; 87651; 99283; A9270

== ENCOUNTER 2025-03-01 04:20 | Emergency (ER) | payer OTHER, SELFPAY ==
--- NOTE | ~2025-03-01 | CT_ITS ---
EXAMINATION: CT abdomen pelvis wo con DATE: 03/01/2025 05:03 INDICATION: Left flank pain TECHNIQUE: Computed tomography (CT) of the abdomen and pelvis was performed without intravenous contr ast. Automated exposure control and iterative reconstruction technique were employed. The dose-length product was 434.22 mGy-cm. COMPARISON: None FINDINGS: Lung bases are clear. Heart size is normal. No pericardial or pleural effusion. Liver, gallbladder, s pleen, pancreas and bilateral adrenal glands are normal. Bilateral nephrolithiasis with probably a mi llimeter obstructing stone at the left ureteral pelvic junction with moderate left hydronephrosis. Th ere is one-2 mm stones at the upper and lower pole calyces of the left kidney and a couple 3 mm stone s at the upper and lower pole calyces of the right kidney. No other ureteral stones or right-sided hy dronephrosis. Bowels including the appendix are normal. Bladder, uterus are unremarkable. Tubal ligat ion rings along side the bilateral adnexa. No free intraperitoneal gas or fluid. No pathologically en larged abdominal or pelvic lymphadenopathy. Mild lumbar dextrocurvature. IMPRESSION: 1. Bilateral nephrolithiasis with obstructing 12 x 8 mm stone at the left ureteropelvic junction with moderate hydronephrosis. Reviewed, dictated and finalized at location A. IMPRESSION: 1. Bilateral nephrolithiasis with obstructing 12 x 8 mm stone at the left urete ropelvic junction with moderate hydronephrosis.
[2025-03-01 04:20] VITALS: BP 126/83; PULSE 63; RESP 16; TEMP 36.9; O2SAT 99
--- OUTSIDE RECORDS SUMMARY | 2025-03-01 04:22 | XMS_ITS ---
[facility] Organization [facility] Address [address] [place] [address] Care Team Providers Care Lan/Wan Engineer Name Role Phone Dee Smith Primary Care Provider [phone] Eddie Boyer [phone] REASON FOR VISIT On U- Physical Medications Medication SIG (Take, Route, Frequency, Duration) Notes Start Date End Date Status hydrOXYzine Pamoate 25 MG 2 Capsules Ora lly every 4 hours Active Multivitamin - 1 tablet Orally Once a day Active Encounters Encounter Location Date Provider Diagnosis [place] [address] [place] [address] 05/23/2024 Eddie Boyer Plan Of Treatment No Information Progress Notes * Miri RYANDOB:1995 (29 yo F)Acc No.[id number]:05/23/2024 UNLOCKED PROGRESS NOTE Patient: Miri HAWKINS Provider: Cassandra Boyer MSN, DIRECTOR ONLINE MARKETING, NETWORK SUPPORT TECHNICIAN-C :1995 A ge:28 Y S ex:Female Date:05/23/2024 Phone: Address:[address] [place], [place] [id number] Pcp:Dee Smith Subjective: * Chief Complaints: * 1 . On CRU- Physical. * Medical History: * Medications: T aking hydrOXYzine Pamoate 25 MG Capsule 2 Capsules Orally every 4 hours , Taking Multivitamin - Tablet 1 tablet Orally Once a day Objective: * Vitals: Assessment: Plan: * Treatment: * * Electronic signature of Annabelle Boyer APRN, [id number] on 03/01/2025 at 04:21 AM CDT Sign off status: Pending * Provider: Cassandra Boyer, MSN, DIRECTOR ONLINE MARKETING, NETWORK SUPPORT TECHNICIAN-C Date: 0 05/23/2024 Generated for Lamberto valentine/Ahmet/Randallitting on: 0 03/01/2025 04:21 AM CDT
--- OUTSIDE RECORDS SUMMARY | 2025-03-01 04:22 | XMS_ITS | Patient Health Record ---
Author Organization [facility] Address [address] [place] [address] Care Team Providers Care Bread Wrapping Machine Feeder Name Role Phone Dee Smith Primary Care Provider Eddie Boyer Unavailable [phone] Reason For Referral No Information Medications Medication [...] Insured Coverage Start Date Coverage End Date [employer] Attn Claims Department [address] [place] [id number] Miri Kemp Self - patient is the insured 4
--- OUTSIDE RECORDS SUMMARY | 2025-03-01 04:22 | XMS_ITS | Clinical Summary ---
Author Organization [facility] Address [address] [place] [address] Care Team Providers Care Bolting Machine Operator Name Role Phone Unavailable Primary Care Provider Unavailabl e Source Comments [facility],non-owned Affiliates and Associated Physician Practices is amultiple site organization consisting of ambulatory clinics and hospital sitesin [place], [place] and [place]. This disclosure is being madepursuant to the Care Everywhere program and may not contain all information available regarding this patient. Last updated 18.[facility] Allergies No known active allergies Medications * Be aware that medications may not be up to date on this document. Alwaysverify current medications with the patient. No known medications Social History Tobacco Use Types Packs/Day Years Used Date Smoking Tobacco: Never Assessed Comments Unknown Sex and Gender Information Value Date Recorded Sex Assigned at Not on file Legal Sex Female 5:39 AM FOREST WORKER Gender Identity Not on file Sexual Orientation Not on file Last Filed Vital Signs Vital Sign Reading Time Taken Comments Blood Pressure - - Pulse - - Temperature - - Respiratory Rate - - Oxygen Saturation - - Inhaled Oxygen Concentration - - Weight 83.2 kg (183 lb 6.4 oz) 09/21/2011 10:36 AM FOREST WORKER Height 164.3 cm (5' 4.69 ) 09/21/2011 10:36 AM Elliott SILVA Body Mass Index 30.82 09/21/2011 10:36 AM FOREST WORKER Plan of Treatment Health Maintenance Due Date Last Done Comments HIV SCREENING 2010 HEPATITIS C SCREENING 10/01/2013 DTAP/TDAP/TD VACCINES (1 - Tdap) 2014 HEPATITIS B VACCINE (1 of 3 - 19+ 3-dose series) 2014 COVID-19 VACCINE (2023-2 5 season) 2024 DEPRESSION SCREENING 10/16/2024 INFLUENZA VACCINE (Season Ended) 2025 ZOSTER VACCINE (1 of 2) 2045 HIB VACCINE Aged Out No longer eligi ble based on patient's age to complete this topic HPV VACCINE Aged Out No longer eligi ble based on patient's age to complete this topic MENINGOCOCCAL (Group B) VACC INE SHARED DECISION-MAKING Aged Out No longer eligibl e based on patient's age to complete this topic MENINGOCOCCAL GROUPS A/C/Y/W VACCINE Aged Out No longer eligible b ased on patient's age to complete this topic PNEUMOCOCCAL VACCINE Aged Out No long er eligible based on patient's age to complete this topic [place] [place] [address]
--- OUTSIDE RECORDS SUMMARY | 2025-03-01 04:22 | XMS_ITS | Clinical Summary ---
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 Gender Identity Not on file Sexual [...] 2014 COVID-19 Vaccine (2023-2 5 season) 2024 HPV Vaccines Aged Out No longer eligi ble based on patient's age to complete this topic Meningococcal B Vaccine Aged Out No l onger eligible based on patient's age to complete this topic Meningococcal Vaccine Aged Out No javier ratna eligible based on patient's age to complete this topic Pneumococcal Vaccine: Pediat rics (0 to 5 Years) and At-Risk Patients (6 to 49 Years) Aged Out No longer eligible b ased on patient's age to complete this topic RSV Immunizations Under 20 Months Aged Out No longer eligible based on patient's age to complete this topic
--- NOTE | 2025-03-01 04:27 | ED.GENADULT ---
HPI - General Adult General Chief complaint: Back Pain/Injury <Santos Barahona MD - Last Filed: 03/01/25 07:30> Stated complaint: L Lower back pain <Santos Barahona MD - Last Filed: 03/01/25 07:30> Time Seen by Provider: 03/01/25 04:27 <Santos Barahona MD - Last Filed: 03/01/25 07:30> Source: patient <Santos Barahona MD - Last Filed: 03/01/25 07:30> Mode of arrival: ambulatory <Santos Barahona MD - Last Filed: 03/01/25 07:30> Limitations: no limitations <Santos Barahona MD - Last Filed: 03/01/25 07:30> History of Present Illness HPI narrative: 29-year-old white female sleeping less an hour prior to coming to emergency room and she woke up with left flank pain worse when she moves around. She has not had a history of back pain problems voiding or stooling. Feels like a burning sensation. Denies any rash swelling lumps or bumps cough fever sore throat pain elsewhere. Nothing seems to make it better she did not take anything for pain. Rates her pain 7/10. Denies any trauma. Denies any itching dizziness or lightheadedness weakness or numbness or any other complaints. Patient works as a technical services specialist. <Santos Barahona MD - Last Filed: 03/01/25 07:30> Related Data Home medications: Home Medications Medication Instructions Recorded Confirmed Last Taken Type No Home Medications 03/01/25 03/01/25 Unknown History <Santos Barahona MD - Last Filed: 03/01/25 07:30> Allergies/adverse reactions: Allergies Allergy/AdvReac Type Severity Reaction Status Date / Time sweet potato AdvReac Swelling Verified 03/01/25 09:59 <Santos Barahona MD - Last Filed: 03/01/25 07:30> PMFSH Past Medical History Medical History: Medical History Marijuana use quit 2021 Methamphetamine abuse last use 11 months ago Viral syndrome Anxiety no meds Depression <Santos Barahona MD - Last Filed: 03/01/25 07:30> Surgical History Surgical History: Surgical History History of bilateral tubal ligation No history of previous surgery <Santos Barahona MD - Last Filed: 03/01/25 07:30> Family History Family History: Family History Grandparent Diabetes mellitus Acute myocardial infarction Carcinoma of colon Father Hypertension Cerebrovascular accident Acute myocardial infarction <Sanots Barahona MD - Last Filed: 03/01/25 07:30> Social History Social History: Social History Smoking packs per day: 1 Smoking cigarettes per day: 20.0 Years smoked: 8 Smoking pack-years: 8.00 Smoking status: Current every day smoker Tobacco type: e-cigarettes/vaping Second hand tobacco smoke exposure: Yes Alcohol intake: former Substance use: former Substance use type: marijuana and methamphetamine Do You Feel Safe in your Home?: Yes Lack of Transportation: No Lack of Food: Never True Current Housing: I Have Housing Concerned About Future Housing: No Difficulty Paying Gas/Electric Bills: No Difficulty Paying for Meds: No Currently Unemployed: No Education: Don't Know Difficulty w/ Childcare or Family Care: No Living arrangements: with family Additional living arrangements comments: LIVES W/CHILDREN Gender identity (if verbalized by the patient): Female Sexual Orientation (if Verbalized by the Patient): Straight or Heterosexual Spiritual care concerns: No <Santos Barahona MD - Last Filed: 03/01/25 07:30> Exam Narrative: White female patient with no apparent distress. Head normocephalic, atraumatic. Eyes conjunctiva pink sclera nonicteric. Extraocular movements are intact. Ears externally normal. TMs are normal. Oropharynx is clear with moist mucous membranes without exudates. Neck is supple nontender no lymphadenopathy. Back is nontender. Lungs are clear. Heart is regular rate and rhythm without murmurs gallops or rubs. Chest wall nontender. Abdomen is soft and nontender no hepatosplenomegaly or masses no abdominal bruits. She just has very minimal left CVA tenderness. No spinal tenderness. Extremities no cyanosis clubbing or edema. Hips range of motion are normal and nontender. Skin is warm and dry without rashes or lesions. Neurological patient is alert and oriented x4. Motor and sensory grossly intact. Gait is normal. <Santos Barahona MD - Last Filed: 03/01/25 07:30> Course Vital Signs Vital signs: Vital Signs Temperature 36.9 C 03/01/25 04:20 Pulse Rate 63 03/01/25 04:20 Respiratory Rate 16 03/01/25 04:20 Blood Pressure 126/83 03/01/25 04:20 Pulse Oximetry 99 03/01/25 04:20 Oxygen Delivery Room Air 03/01/25 04:20 Temperature 36.6 C 03/01/25 08:15 Pulse Rate 65 03/01/25 08:15 Respiratory Rate 14 03/01/25 08:15 Blood Pressure 98/69 L 03/01/25 08:15 Pulse Oximetry 97 03/01/25 08:15 Oxygen Delivery Room Air 03/01/25 08:15 <Santos Barahona MD - Last Filed: 03/01/25 07:30> Vital Signs Temperature 36.9 C 03/01/25 04:20 Pulse Rate 63 03/01/25 04:20 Respiratory Rate 16 03/01/25 04:20 Blood Pressure 126/83 03/01/25 04:20 Pulse Oximetry 99 03/01/25 04:20 Oxygen Delivery Room Air 03/01/25 04:20 Temperature 36.6 C 03/01/25 08:15 Pulse Rate 65 03/01/25 08:15 Respiratory Rate 14 03/01/25 08:15 Blood Pressure 98/69 L 03/01/25 08:15 Pulse Oximetry 97 03/01/25 08:15 Oxygen Delivery Room Air 03/01/25 08:15 <Bg Saldana MD - Last Filed: 03/02/25 06:54> Medical Decision Making MDM Narrative Medical decision making narrative: Patient placed in room: 1 History and physical was performed. Normal lipase and test /urine. Anion gap 3 BUN 19 creatinine 1.22 GFR 52, normal electrolytes glucose and the rest of her CMP is normal. UA trace of protein 3+ blood greater than 75 RBCs 0-3 wbc's, +[address] abdomen pelvis without contrast shows bilateral kidney stones possible ureteral stone distally versus a phlebolith as independently interpreted by me. Per radiologist: Bilateral nephrolithiasis with obstructing 12 x 8 mm stone at the left ureteropelvic junction with moderate hydronephrosis. Independent Historian: Patient External Source Review: Differential Dx includes but not limited to: kidney stone urinary tract infection, pyelonephritis Medications were Reviewed: home meds reviewed Medications given: Toradol 30 mg IM Patient refused IV fluids 1 L , [place] p.o. fluids well Six hundred thirty-two pain is a 1/10. Patient drinks 16 oz of fluid /water. 6:53 a.m. paged Urology [facility] IV normal saline started at 150 cc per hour. Independently Interpreted by me: labs independently interpreted by me. Shared decision Making: evaluation was discussed with patient and all questions were asked and answered patient agreed with the plan. Social Situation Impacting Patients Care: Discussed with at change of shift who will assume care of this patient. DISCHARGE DIAGNOSIS: Left flank pain secondary to left distal ureteral pelvic stone 12 x 8 mm, Bilateral kidney stones DISPOSITION :per Dr. Saldana CONDITION AT DISCHARGE:stable <Santos Barahona MD - Last Filed: 03/01/25 07:30> Patient placed in room: 1 History and physical was performed. Normal lipase and test /urine. Anion gap 3 BUN 19 creatinine 1.22 GFR 52, normal electrolytes glucose and the rest of her CMP is normal. UA trace of protein 3+ blood greater than 75 RBCs 0-3 wbc's, +[address] abdomen pelvis without contrast shows bilateral kidney stones possible ureteral stone distally versus a phlebolith as independently interpreted by me. Per radiologist: Bilateral nephrolithiasis with obstructing 12 x 8 mm stone at the left ureteropelvic junction with moderate hydronephrosis. Independent Historian: Patient External Source Review: Differential Dx includes but not limited to: kidney stone urinary tract infection, pyelonephritis Medications were Reviewed: home meds reviewed Medications given: Toradol 30 mg IM Patient refused IV fluids 1 L , [place] p.o. fluids well Six hundred thirty-two pain is a 1/10. Patient drinks 16 oz of fluid /water. 6:53 a.m. paged Urology [facility] IV normal saline started at 150 cc per hour. Independently Interpreted by me: labs independently interpreted by me. Shared decision Making: evaluation was discussed with patient and all questions were asked and answered patient agreed with the plan. Social Situation Impacting Patients Care: Discussed with at change of shift who will assume care of this patient. DISCHARGE DIAGNOSIS: Left flank pain secondary to left distal ureteral pelvic stone 12 x 8 mm, Bilateral kidney stones DISPOSITION :per Dr. Saldana CONDITION AT DISCHARGE:stable Patient was accepted for transferred to [facility], discussed with the urologist on-call and Dr. Precaido the hospitalist on-call <Bg Saldana MD - Last Filed: 03/02/25 06:54> Vital Signs Vital Signs: Vital Signs Temperature 36.9 C 03/01/25 04:20 Pulse Rate 63 03/01/25 04:20 Respiratory Rate 16 03/01/25 04:20 Blood Pressure 126/83 03/01/25 04:20 Pulse Oximetry 99 03/01/25 04:20 Oxygen Delivery Room Air 03/01/25 04:20 Temperature 36.6 C 03/01/25 08:15 Pulse Rate 65 03/01/25 08:15 Respiratory Rate 14 03/01/25 08:15 Blood Pressure 98/69 L 03/01/25 08:15 Pulse Oximetry 97 03/01/25 08:15 Oxygen Delivery Room Air 03/01/25 08:15 <Santos Barahona MD - Last Filed: 03/01/25 07:30> Vital Signs Temperature 36.9 C 03/01/25 04:20 Pulse Rate 63 03/01/25 04:20 Respiratory Rate 16 03/01/25 04:20 Blood Pressure 126/83 03/01/25 04:20 Pulse Oximetry 99 03/01/25 04:20 Oxygen Delivery Room Air 03/01/25 04:20 Temperature 36.6 C 03/01/25 08:15 Pulse Rate 65 03/01/25 08:15 Respiratory Rate 14 03/01/25 08:15 Blood Pressure 98/69 L 03/01/25 08:15 Pulse Oximetry 97 03/01/25 08:15 Oxygen Delivery Room Air 03/01/25 08:15 <Bg Saldana MD - Last Filed: 03/02/25 06:54> Lab Data Result diagrams: 03/01/25 04:49 03/01/25 04:49 <Santos Barahona MD - Last Filed: 03/01/25 07:30> Labs: Lab Results 03/01/25 Range/Units 04:49 WBC 8.4 (4.8-10.8) K/mm3 RBC 4.84 (4.20-5.40) M/mm3 Hgb 12.5 (12.0-15.0) g/dL Hct 39.4 (35.0-49.0) % MCV 81.4 (78.0-102.0) fL MCH 25.8 L (27.0-31.0) pg MCHC 31.7 L (32-36) g/dL RDW 13.9 (11.6-14.4) % Plt Count 290 (150-420) K/mm3 MPV 9.2 (9.2-11.8) fl Sodium 138 (137-145) mmol/L Potassium 3.9 (3.4-5.0) mmol/L Chloride 106 (98-107) mmol/L Carbon Dioxide 29 (22-30) mmol/L Anion Gap 3 L (4-12) mmol/L BUN 19 H (7-17) mg/dL Creatinine 1.22 H (0.7-1.0) mg/dL Estim Creat Clear Calc 61 ml/min Estimated GFR 52 L (59 - ) Glucose 99 (65-110) mg/dL Calculated Osmolality 288 (285-295) mOsm/kg Calcium 8.8 (8.4-10.2) mg/dL Total Bilirubin 0.4 (0.2-1.3) mg/dL AST 22 (14-36) U/L ALT 10 (6-35) U/L Alkaline Phosphatase 73 (38-126) U/L Total Protein 6.7 (6.3-8.2) g/dL Albumin 4.0 (3.5-5.1) g/dL Lipase 59 (23-300) U/L Urine Color Light yellow (Yellow) Urine Appearance Clear (Clear) Urine pH 6.5 (5.0-8.0) Ur Specific Hammond 1.010 (1.010-1.020) Urine Protein Trace H (Negative) Urine Glucose (UA) Negative (Negative) Urine Ketones Negative (Negative) Ur Blood (Man) 3+ H (Negative) Urine Nitrate Negative (Negative) Urine Bilirubin Negative (Negative) Urine Urobilinogen 0.2 (0.2-1.0) mg/dL Leukocyte Esterase Rfl Negative (Negative) JUAN/UL Urine RBC >75 H (0-2) /hpf Urine WBC 0-3 (0-3) /hpf Ur Squamous Epith Cells Few (Few) /hpf Urine Bacteria 2+ H (None) /hpf Urine Test Negative <Santos Barahona MD - Last Filed: 03/01/25 07:30> Lab Results 03/01/25 Range/Units 04:49 WBC 8.4 (4.8-10.8) K/mm3 RBC 4.84 (4.20-5.40) M/mm3 Hgb 12.5 (12.0-15.0) g/dL Hct 39.4 (35.0-49.0) % MCV 81.4 (78.0-102.0) fL MCH 25.8 L (27.0-31.0) pg MCHC 31.7 L (32-36) g/dL RDW 13.9 (11.6-14.4) % Plt Count 290 (150-420) K/mm3 MPV 9.2 (9.2-11.8) fl Sodium 138 (137-145) mmol/L Potassium 3.9 (3.4-5.0) mmol/L Chloride 106 (98-107) mmol/L Carbon Dioxide 29 (22-30) mmol/L Anion Gap 3 L (4-12) mmol/L BUN 19 H (7-17) mg/dL Creatinine 1.22 H (0.7-1.0) mg/dL Estim Creat Clear Calc 61 ml/min Estimated GFR 52 L (59 - ) Glucose 99 (65-110) mg/dL Calculated Osmolality 288 (285-295) mOsm/kg Calcium 8.8 (8.4-10.2) mg/dL Total Bilirubin 0.4 (0.2-1.3) mg/dL AST 22 (14-36) U/L ALT 10 (6-35) U/L Alkaline Phosphatase 73 (38-126) U/L Total Protein 6.7 (6.3-8.2) g/dL Albumin 4.0 (3.5-5.1) g/dL Lipase 59 (23-300) U/L Urine Color Light yellow (Yellow) Urine Appearance Clear (Clear) Urine pH 6.5 (5.0-8.0) Ur Specific Hammond 1.010 (1.010-1.020) Urine Protein Trace H (Negative) Urine Glucose (UA) Negative (Negative) Urine Ketones Negative (Negative) Ur Blood (Man) 3+ H (Negative) Urine Nitrate Negative (Negative) Urine Bilirubin Negative (Negative) Urine Urobilinogen 0.2 (0.2-1.0) mg/dL Leukocyte Esterase Rfl Negative (Negative) JUAN/UL Urine RBC >75 H (0-2) /hpf Urine WBC 0-3 (0-3) /hpf Ur Squamous Epith Cells Few (Few) /hpf Urine Bacteria 2+ H (None) /hpf Urine Test Negative <Bg Sladana MD - Last Filed: 03/02/25 06:54> Discharge Plan Discharge Clinical Impression: Calculus of distal left ureter, Bilateral nephrolithiasis <Santos Barahona MD - Last Filed: 03/01/25 07:30> [facility] <Santos Barahona MD - Last Filed: 03/01/25 07:30> Condition: Stable <Santos Barahona MD - Last Filed: 03/01/25 07:30> Patient Language: Iraqi <Santos Barahona MD - Last Filed: 03/01/25 07:30> Prescriptions: No Action No Home Medications acetaminophen 325 mg Tablet 650 mg PO Q4H PRN (Reason: Mild Pain (1-3) Or Fever) Qty: 30 0RF <Santos Barahona MD - Last Filed: 03/01/25 07:30> Follow-up/Referrals: Sandeep Berry MD [Primary Care Provider] - <Santos Barahona MD - Last Filed: 03/01/25 07:30>
--- NOTE | 2025-03-01 04:43 | PC.NURSE ---
PATIENT AMBULATED DOWN TO THE BATHROOM TO GIVE URINE SAMPLE
--- NOTE | 2025-03-01 04:51 | PC.NURSE ---
PATIENT BEING TRANSPORTED TO CT VIA WHEEL CHAIR
[2025-03-01 04:56] LABS: Hematocrit 39.4 % (35.0-49.0); Hemoglobin 12.5 g/dL (12.0-15.0); Mean Corpuscular HGB Conc 31.7 g/dL (32-36); Mean Corpuscular Hemoglobin 25.8 pg (27.0-31.0); Mean Corpuscular Volume 81.4 fL (78.0-102.0); Mean Platelet Volume 9.2 fl (9.2-11.8); Platelet Count Result 290 K/mm3 (150-420); Red Blood Count 4.84 M/mm3 (4.20-5.40); Red Cell Distribution Width 13.9 % (11.6-14.4); White Blood Count 8.4 K/mm3 (4.8-10.8)
[2025-03-01] MEDS: KETOROLAC 30 MG/ML VIAL (*BKC) IM (04:59)
[2025-03-01 05:01] LABS: Add Urine Microscopic? YES; Appearance Urine Clear (Clear); Bilirubin Urine Negative (Negative); Blood Urine 3+ (Negative); Color Urine Light Yellow (Yellow); Glucose Urine UA Negative (Negative); Ketones Urine Negative (Negative); Leukocyte Esterase Ur Negative LEU/UL (Negative); Nitrate Urine Negative (Negative); Protein Urine Trace (Negative); Urobilinogen Urine 0.2 mg/dL (0.2-1.0); pH Urine 6.5 (5.0-8.0)
--- NOTE | 2025-03-01 05:05 | PC.NURSE ---
PATIENT IS CURRENTLY RESTING ON STRETCHER. COVERED WITH WARM BLANKET. LIGHTS TURNED OFF. CALL LIGHT IN REACH
[2025-03-01 05:07] LABS: Bacteria Urine 2+ /hpf; RBC Urine >75 /hpf (0-2); Squamous Epithelial Cell Urine Few /hpf (Few); WBC Urine 0-3 /hpf (0-3)
[2025-03-01 05:08] LABS: Alanine Aminotransferase 10 U/L (6-35); Alkaline Phosphatase 73 U/L (38-126); Anion Gap 3 mmol/L (4-12); Aspartate Amino Transferase 22 U/L (14-36); Bilirubin,Total 0.4 mg/dL (0.2-1.3); Blood Urea Nitrogen 19 mg/dL (7-17); Calcium 8.8 mg/dL (8.4-10.2); Carbon Dioxide 29 mmol/L (22-30); Chloride 106 mmol/L (98-107); Estimated CRCL calculation 61 ml/min; Estimated Glomerular Filt Rate 52; Glucose 99 mg/dL (65-110); Lipase 59 U/L (23-300); Osmolality Calculated 288 mOsm/kg (285-295); Potassium 3.9 mmol/L (3.4-5.0); Sodium 138 mmol/L (137-145); Total Protein 6.7 g/dL (6.3-8.2)
[2025-03-01 05:11] LABS: Pregnancy On Board Control Positive; Urine Pregnancy Test Negative
--- NOTE | 2025-03-01 05:49 | PC.NURSE ---
DR BRUNO WANTED IV LINE PLACED AND IV FLUIDS GIVEN. NOTIFIED PATIENT OF IV START. PATIENT ASKED IF SHE COULD JUST DRINK SOME WATER . SPOKE WITH DR BRUNO. OK TO GIVE 2 EIGHT OZ GLASSES OF WATER TO DRINK.
--- OUTSIDE RECORDS SUMMARY | 2025-03-01 06:05 | XMS_ITS | Clinical Summary ---
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
--- OUTSIDE RECORDS SUMMARY | 2025-03-01 06:05 | XMS_ITS | Clinical Summary ---
Author Organization [facility] Address [address] [place] [address] Care Team Providers Care Drum Tester Name Role Phone Unavailable Primary Care Provider Unavailabl e Source Comments [facility],non-owned Affiliates and Associated Physician Practices is amultiple site organization consisting of ambulatory clinics and hospital sitesin [place], [place], [place] and [place]. This disclosure is being madepursuant to the Care Everywhere program and may not contain all information available regarding this patient. Last updated 18.[employer] [facility] Allergies No known active allergies Medications * Be aware that medications may not be up to date on this document. Alwaysverify current medications with the patient. 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
[2025-03-01] MEDS: HYDROmorphone HCL INJ (*CRX) 2 MG/ML VIAL 0.5 MG IV PUSH (07:52)
[2025-03-01] MEDS: ONDANSETRON INJ 4 MG/2 ML VIAL IV PUSH (07:52)
[2025-03-01] MEDS: SODIUM CHLORIDE 0.9% IV 1,000 ML 150 ML IV CONT (07:53)
[2025-03-01] MEDS: SODIUM CHLORIDE 0.9% IV 1,000 ML 999 ML IV CONT (08:07)
[2025-03-01 08:15] VITALS: BP 98/69; PULSE 65; RESP 14; TEMP 36.6; O2SAT 97
--- NOTE | 2025-03-01 08:32 | PC.NURSE ---
pt ambulated to ems cot. alert and oriented. denies pain at this time. departed facility with all personal belongings with ems at 0812
== END 2025-03-01 08:33 | disposition short-term general hospital (02) ==
PROVIDERS: Emergency Medicine; Emergency Provider Emergency Medicine; PCP Internal Medicine
DX: N20.2 Calculus of kidney with calculus of ureter (principal); F17.290 Nicotine dependence, other tobacco product, uncomplicated
CPT/HCPCS: 36415; 74176; 80053; 81001; 81025; 83690; 85027; 96361; 96372; 96374; 96375; 99285; J1171; J1885; J2405; J7030

== ENCOUNTER 2025-03-01 10:49 | Observation (INO) | payer OTHER, SELFPAY ==
[2025-03-01] VITALS (14 sets, daily range): BP systolic 103–115; BP diastolic 68–83; PULSE 50–77; RESP 12–16; TEMP 36–36.6; O2SAT 99–100; BMI 29.7
--- NOTE | ~2025-03-01 | XR_ITS ---
EXAMINATION: XR retrograde pyelo w/stent LT DATE: 03/01/2025 13:38 INDICATION: Cystoscopy and left ureteral stent placement. TECHNIQUE: 2 fluoroscopic images of the abdomen and pelvis were obtained during procedure performed leslye Holloway. Radiologist was not present for the imaging or procedure. The amount of fluoroscopy time used during this procedure was 0.7 minutes. Total DAP was 0.494 mGym^2. COMPARISON: CT dated 03/01/2025 FINDINGS: Images demonstrate retrograde contrast injection into the left renal collecting system and placement of a left intraureteral stent with proximal loop formed at the left renal pelvis. There is a triangul ar opacity left ureteropelvic junction likely representing a previous noted stone seen on CT. IMPRESSION: 1. Placement of a left intraureteral stent in expected position. 2. Large stone previously seen at the left ureteropelvic junction appears unchanged in position. Nery elate with procedure note for further detail. Reviewed, dictated and finalized at location A. IMPRESSION: 1. Placement of a left intraureteral stent in expected position. 2. Large stone previously seen at the left ureteropelvic junction appears uncha nged in position. Correlate with procedure note for further detail.
--- OUTSIDE RECORDS SUMMARY | 2025-03-01 09:12 | XMS_ITS | Clinical Summary ---
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
--- OUTSIDE RECORDS SUMMARY | 2025-03-01 09:12 | XMS_ITS | Clinical Summary ---
Author Organization [facility] Address [address] [place] [address] Care Team Providers Care Production Director Name Role Phone Unavailable Primary Care Provider Unavailabl e Source Comments [facility],non-owned Affiliates and Associated Physician Practices is amultiple site organization consisting of ambulatory clinics and hospital sitesin [place], [place], [place] and [place]. This disclosure is being madepursuant to the Care Everywhere program and may not contain all information available regarding this patient. Last updated 18.[employer] [facility] Allergies No known active allergies Medications * Be aware that medications may not be up to date on this document. Alwaysverify current medications with the patient. 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
--- NOTE | 2025-03-01 09:43 | ADMGEN ---
This patient, Miri Kemp, was admitted to [facility] Surg Room 326-01. Patient/family oriented to hospital policies and general routines including ID bracelet, bed and alarms, visiting hours, pain management, procedures, bathroom and other care routines, personal items, smoking policy, room service/diet, and visiting hours. Information on how to activate the Rapid Response Team has been discussed. Patient/Family are encouraged to report perceived risks to care and to ask questions if they do not understand what they are told or what they should do. Direct admit from bernice
--- OUTSIDE RECORDS SUMMARY | 2025-03-01 11:03 | XMS_ITS | Clinical Summary ---
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
--- OUTSIDE RECORDS SUMMARY | 2025-03-01 11:03 | XMS_ITS | Clinical Summary ---
Author Organization [facility] Address [address] [place] [address] Care Team Providers Care Mercerizer Name Role Phone Unavailable Primary Care Provider Unavailabl e Source Comments [facility],non-owned Affiliates and Associated Physician Practices is amultiple site organization consisting of ambulatory clinics and hospital sitesin [place], [place], [place] and [place]. This disclosure is being madepursuant to the Care Everywhere program and may not contain all information available regarding this patient. Last updated 18.[employer] [facility] Allergies No known active allergies Medications * Be aware that medications may not be up to date on this document. Alwaysverify current medications with the patient. No known medications Social History Tobacco Use Types Packs/Day Years Used Date Smoking Tobacco: Never Assessed Comments Unknown Sex and Gender Information Value Date Recorded Sex Assigned at Not on file Legal Sex Female 5:39 AM DELIVERY PROFESSIONAL Gender Identity Not on file Sexual Orientation Not on file Last Filed Vital Signs Vital Sign Reading Time Taken Comments Blood Pressure - - Pulse - - Temperature - - Respiratory Rate - - Oxygen Saturation - - Inhaled Oxygen Concentration - - Weight 83.2 kg (183 lb 6.4 oz) 09/21/2011 10:36 AM DELIVERY PROFESSIONAL Height 164.3 cm (5' 4.69 ) 09/21/2011 10:36 AM Elliott SILVA Body Mass Index 30.82 09/21/2011 10:36 AM DELIVERY PROFESSIONAL Plan of Treatment Health Maintenance Due Date [...] patient's age to complete this topic [place] [place] [address]
--- NOTE | 2025-03-01 11:52 | P.HP_ITS ---
H&P: HPI History of Present Illness Date/Time: 03/01/25 11:52 Chief Complaint: Flank pain Narrative: Patient is 29 years old with no significant PMH presented to OSH with L flank pain.patient woke up with 7/10 flank pain on the L side radiating to lower back. pain was burning and gradually was getting worse. she denies any dysuria/hematuria. presented to OSH . lab test showed Bun 19 and Cr 1.22 UA showed 3+ blood. Ct showed Bilateral nephrolithiasis with obstructing 12 x 8 mm stone at the left ureteropelvic junction with moderate hydronephrosis. treatment started with IVF and pain management. patient was transferred to [facility] for urology evaluation .at time of my exam patient is feeling fine. abd pain is under control with pain meds. denies chest pain, SOB, N/V. urology team on board. Review of Systems Review of Systems: All systems reviewed & are unremarkable except as noted in HPI and below PMFSH Past Medical History Medical History Viral syndrome Anxiety Depression Surgical History Surgical History No history of previous surgery Family History Family History (Updated 03/01/25 @ 09:46 by Lili Smith RN) Grandparent Diabetes mellitus Acute myocardial infarction Carcinoma of colon Father Hypertension Cerebrovascular accident Acute myocardial infarction Social History Social History Smoking packs per day: 1 Smoking cigarettes per day: 20.0 Years smoked: 8 Smoking pack-years: 8.00 Smoking status: Current every day smoker Tobacco type: e-cigarettes/vaping Second hand tobacco smoke exposure: Yes Alcohol intake: former Substance use: former Substance use type: marijuana and methamphetamine Do You Feel Safe in your Home?: Yes Lack of Transportation: No Lack of Food: Never True Current Housing: I Have Housing Concerned About Future Housing: No Difficulty Paying Gas/Electric Bills: No Difficulty Paying for Meds: No Currently Unemployed: No Education: Don't Know Difficulty w/ Childcare or Family Care: No Living arrangements: with family Additional living arrangements comments: LIVES W/CHILDREN Gender identity (if verbalized by the patient): Female Sexual Orientation (if Verbalized by the Patient): Straight or Heterosexual Spiritual care concerns: No Meds Home Medications and Allergies Home Medications Medication Instructions Recorded Confirmed Type No Home Medications 03/01/25 03/01/25 History Allergies Allergy/AdvReac Type Severity Reaction Status Date / Time sweet potato AdvReac Swelling Verified 03/01/25 09:59 Vital Signs Vital Signs - 24 hr 03/01/25 10:03 03/01/25 10:35 Temperature 97.4 F L Pulse Rate 50 L 53 L Respiratory Rate 16 Blood Pressure 103/74 Pulse Oximetry 99 100 Oxygen Delivery Room Air Exam Const: General: cooperative, healthy appearing, comfortable and no acute distress Nutritional Appearance: average body habitus and well nourished Orientation/consciousness: patient oriented x3 HENMT: Head: normal to inspection Face/Nose/Sinus: Normal external nose present Eyes: General: appearance normal, both eyes and all related structures Neck: Neck: normal visual inspection and full ROM Chest: Chest palpation & inspection: normal inspection of the chest, normal palpation of entire chest wall and abnormal inspection of the chest Resp: Effort & Inspection: normal respiratory effort and able to speak in comp lete sentences Auscultation: clear to auscultation bilaterally Cardio: Jugular venous distension: no JVD Rate: regular rate Rhythm: regular rhythm GI: Inspection: normal to inspection Percussion: Yes normal to percussion Auscultation: normal bowel sounds Back/Spine/Pelvis: Back: no CVA tenderness Skin: General skin exam: normal color and no rashes or lesions noted Neuro: General: patient oriented x3 Extrem: General: normal to inspection and full ROM Assessment and Plan Assessment and plan (1) Nephrolithiasis: Code(s): N20.0 - Calculus of kidney Status: Acute Assessment and Plan: Ct showed L sided obstructing stone Continue IVF Pain managemnt urology team on board (2) ELIDA (acute kidney injury): Code(s): N17.9 - Acute kidney failure, unspecified Status: Acute Assessment and Plan: dehydration vs post renal IVF continue to monitor
--- NOTE | 2025-03-01 11:57 | P.PNAN_ITS ---
Anes - Initial Pre Proc Eval Procedure: Operation Date: 03/01/25 12:00 Proposed Procedures p Cysto, RPG, Stone Ext, Stent Placement(Left) - Andreas Holloway MD Date/Time: 03/01/25 11:57 Surgeon: MD Travon Pre Op Diagnosis: left kidney stone Patient Data Age: 29 Gender: F Height: 1.63 m Weight: 78.6 kg Last Vital Signs Temp 97.4 F L 03/01/25 10:35 Pulse 53 L 03/01/25 10:35 Resp 16 03/01/25 10:35 BP 103/74 03/01/25 10:35 Pulse Ox 100 03/01/25 10:35 O2 Del Method Room Air 03/01/25 10:03 Allergies Allergy/AdvReac Type Severity Reaction Status Date / Time sweet potato AdvReac Swelling Verified 03/01/25 09:59 Home Medications Medication Instructions Recorded Confirmed Type No Home Medications 03/01/25 03/01/25 History HCG: negative Patient hx anesthesia problems: none Family hx anesthesia problems: none Results Review: All pre-operative results and documents have been reviewed as part of the pre- operative evaluation. [facility] Past Medical History Medical History (Updated 03/01/25 @ 12:04 by Vilma Preciado MD) Marijuana use quit 2021 Methamphetamine abuse last use 11 months ago Viral syndrome Anxiety no meds Depression Surgical History Surgical History (Updated 03/01/25 @ 11:59 by Betzaida Delvalle CRNA) History of bilateral tubal ligation No history of previous surgery Family History Family History Grandparent Diabetes mellitus Acute myocardial infarction Carcinoma of colon Father Hypertension Cerebrovascular accident Acute myocardial infarction Social History Social History (Updated 03/01/25 @ 12:01 by Betzaida Delvalle CRNA) Smoking packs per day: 1 Smoking cigarettes per day: 20.0 Years smoked: 8 Smoking pack-years: 8.00 Smoking status: Current every day smoker Tobacco type: e-cigarettes/vaping Second hand tobacco smoke exposure: Yes Alcohol intake: former Substance use: former Substance use type: marijuana and methamphetamine Do You Feel Safe in your Home?: Yes Lack of Transportation: No Lack of Food: Never True Current Housing: I Have Housing Concerned About Future Housing: No Difficulty Paying Gas/Electric Bills: No Difficulty Paying for Meds: No Currently Unemployed: No Education: Don't Know Difficulty w/ Childcare or Family Care: No Living arrangements: with family Additional living arrangements comments: LIVES W/CHILDREN Gender identity (if verbalized by the patient): Female Sexual Orientation (if Verbalized by the Patient): Straight or Heterosexual Spiritual care concerns: No Anes - Eval Final PreProcedure Day of Procedure 03/01/25 11:57 Patient weight: overweight Lungs: clear to auscultation Airway: Mallampati scale class 1 Last oral intake: >/= 8 hours ASA classification: II Anesthetic plan: proceed Anesthesia type and monitoring: general LMA and standard monitoring Results Review: All pre-operative results and documents have been reviewed as part of the pre- operative evaluation. Informed Consent: The patient's anesthetic plan and its attendant risks and benefits were discussed with the patient/family/POA. Questions were solicited and answers provided to the satisfaction of the patient/family/POA.
[2025-03-01] MEDS: ceFAZolin 2 GM/D5W 50 ML 2 GM/50 ML BAG IVPB (12:21)
--- NOTE | 2025-03-01 12:22 | P.CONUR_ITS ---
Assessment and Plan Assessment and plan (1) Nephrolithiasis: Code(s): N20.0 - Calculus of kidney Status: Acute Assessment and Plan: Left-sided 1 cm kidney stone Ongoing pain Plan: -discussed with patient that given stone size I think she is unlikely to pass this. We will proceed to the operating room for stent placement today to decompress the left kidney and assist with pain control. We discussed the stent is a temporizing measure. She will need definitive stone management at a later date. We will likely observe her in house overnight after stent is placed to ensure pain is controlled. And discharged home tomorrow Plan Left-sided 1 cm kidney stone Ongoing pain Plan: -discussed with patient that given stone size I think she is unlikely to pass t his. We will proceed to the operating room for stent placement today to decompress the left kidney and assist with pain control. We discussed the stent is a temporizing measure. She will need definitive stone management at a later date. We will likely observe her in house overnight after stent is placed to ensure pain is controlled. And discharged home tomorrow Urology Consult Note HPI Date Seen: 03/01/25 Requesting Physician: Vilma Preciado MD Primary Care Provider: Sandeep Berry MD Consult Narrative Narrative: Miri Kemp is a 29 year old female with history of occasional UTIs who presented to emergency room with severe left flank pain starting this morning. She was found on CT scan to have a greater than 1 cm left UPJ stone with moderate hydronephrosis as well as several nonobstructing stones. She was not febrile has continued to have pain. Denies hematuria. Denies prior stone events. No prior urologic history. Review of Systems Review of Systems: All systems reviewed & are unremarkable except as noted in HPI and below [facility] Past Medical History Medical History Marijuana use quit 2021 Methamphetamine abuse last use 11 months ago Viral syndrome Anxiety no meds Depression Surgical History Surgical History History of bilateral tubal ligation No history of previous surgery Family History Family History Grandparent Diabetes mellitus Acute myocardial infarction Carcinoma of colon Father Hypertension Cerebrovascular accident Acute myocardial infarction Social History Social History Smoking packs per day: 1 Smoking cigarettes per day: 20.0 Years smoked: 8 Smoking pack-years: 8.00 Smoking status: Current every day smoker Tobacco type: e-cigarettes/vaping Second hand tobacco smoke exposure: Yes Alcohol intake: former Substance use: former Substance use type: marijuana and methamphetamine Do You Feel Safe in your Home?: Yes Lack of Transportation: No Lack of Food: Never True Current Housing: I Have Housing Concerned About Future Housing: No Difficulty Paying Gas/Electric Bills: No Difficulty Paying for Meds: No Currently Unemployed: No Education: Don't Know Difficulty w/ Childcare or Family Care: No Living arrangements: with family Additional living arrangements comments: LIVES W/CHILDREN Gender identity (if verbalized by the patient): Female Sexual Orientation (if Verbalized by the Patient): Straight or Heterosexual Spiritual care concerns: No Meds Home Medications and Allergies Home Medications Medication Instructions Recorded Confirmed Type No Home Medications 03/01/25 03/01/25 History Allergies Allergy/AdvReac Type Severity Reaction Status Date / Time sweet potato AdvReac Swelling Verified 03/01/25 09:59 Vital Signs Vital Signs - 24 hr 03/01/25 10:03 03/01/25 10:35 Temperature 36.3 C L Pulse Rate 50 L 53 L Respiratory Rate 16 Blood Pressure 103/74 Pulse Oximetry 99 100 Oxygen Delivery Room Air Exam Const: Other: Sleepy lying in bed in no major distress Resp: Other: Nonlabored Cardio: Other: Regular GI: Other: Soft, nontender, nondistended, left CVA tenderness Results Imaging Radiologist's impression: IMPRESSION: 1. Bilateral nephrolithiasis with obstructing 12 x 8 mm stone at the left ureteropelvic junction with moderate hydronephrosis.
[2025-03-01] MEDS: LACTATED RINGERS 1,000 ML 30 ML IV CONT (12:50)
--- NOTE | 2025-03-01 14:14 | P.OP_ITS ---
Procedure Note - Detailed Date of Procedure 03/01/25 Pre-op Diagnosis left kidney stone Post-op Diagnosis Same Procedure Performed Cystoscopy, left retrograde pyelogram, placement of left ureteral stent. Surgeon Andreas Holloway MD Anesthesia General Findings Large radiopaque stone in the left UPJ consistent with CT scan, [id number] hydronephrosis Description of Procedure Description of procedure: After obtaining informed consent we proceeded to the operating room. Patient was placed in supine position. She was given dose antibiotics. SCD was replaced. General anesthesia was induced she was placed in lithotomy position prepped draped usual sterile manner. Began by passing well lubricated 22 [place] cystoscope per the urethra into the bladder. Bladder was emptied of all urine. I performed colonoscopic evaluation of the bladder there were no unexpected findings. Focused on the left ureteral orifice. This cannulated with 5 [place] catheter, gentle retrograde pyelogram was performed demonstrating no abnormal findings on course of the ureter, filling defect in the renal pelvis consistent with large radiopaque stone and mild proximal dilation. A wire was passed into an upper pole calyx beyond the stone. Over this a 6 [place] variable length stent was passed with good curl proximal to the stone as well as within the bladder. The bladder is emptied of all urine. Scope was withdrawn. This concluded the procedure. Patient to lerated without apparent complication. Will plan for the patient to go to the hospital floor overnight for observation of labs and make sure no further issues. Discussed with her that she will need definitive stone management at a later date.
--- NOTE | 2025-03-01 16:52 | PM.DS ---
DS: Admitting Diagnosis Discharge Date 03/01/25 Admitting Diagnosis nephrolithiasis DS: Discharge Diagnosis Discharge Diagnosis (1) Nephrolithiasis: Code(s): N20.0 - Calculus of kidney Status: Acute Assessment and Plan: Ct showed L sided obstructing stone S/P Cystoscopy, left retrograde pyelogram, placement of left ureteral stent. 03/01/25 Pain managemnt urology team on board (2) ELIDA (acute kidney injury): Code(s): N17.9 - Acute kidney failure, unspecified Status: Acute Assessment and Plan: dehydration vs post renal received IVF continue to monitor DS: Summary Hospital Course Hospital Course: Patient is 29 years old with no significant PMH presented to OSH with L flank pain.patient woke up with 7/10 flank pain on the L side radiating to lower back. pain was burning and gradually was getting worse. she denies any dysuria/hematuria. presented to OSH . lab test showed Bun 19 and Cr 1.22 UA showed 3+ blood. Ct showed Bilateral nephrolithiasis with obstructing 12 x 8 mm stone at the left ureteropelvic junction with moderate hydronephrosis. treatment started with IVF and pain management. patient was transferred to [facility] for urology evaluation .at time of my exam patient is feeling fine. abd pain is under control with pain meds. denies chest pain, SOB, N/V. urology team on board. patient underwent Cystoscopy, left retrograde pyelogram, placement of left ureteral stent. patient is feeling fine after procedure. requesting to be discharge as she should care of his kid at home. Urology team contacted by nursing and ok to discharge patient and follow up as outpatient. Status at Discharge Functional status at discharge: independent ambulation Overall status at discharge: patient is back to baseline Time Spent with Patient Time attestation: Total time spent providing and/or coordinating discharge services: Time spent: Greater than 30 minutes Exam Const: General: cooperative, healthy appearing, comfortable, no acute distress, average body habitus and well nourished Nutritional Appearance: average body habitus and well nourished Orientation/consciousness: patient oriented x3 HENMT: Head: normal to inspection Face/Nose/Sinus: Normal external nose present Eyes: General: appearance normal, both eyes and all related structures Neck: Neck: normal visual inspection and full ROM Chest: Chest palpation & inspection: normal inspection of the chest, normal palpation of entire chest wall and abnormal inspection of the chest Resp: Effort & Inspection: normal respiratory effort and able to speak in complete sentences Auscultation: clear to auscultation bilaterally Cardio: Jugular venous distension: no JVD Rate: regular rate Rhythm: regular rhythm GI: Inspection: normal to inspection Auscultation: normal bowel sounds : General: Yes no CVA tenderness Back/Spine/Pelvis: Back: no CVA tenderness Skin: General skin exam: normal color and no rashes or lesions noted Neuro: General: patient oriented x3 Extrem: General: normal to inspection and full ROM Discharge Plan Discharge Attending physician on discharge: Vilma Preciado Consulting providers: Andreas Holloway Discharging Clinician: Vilma Preciado Anticipated Discharge Date/Time: 03/01/25 16:48 Patient Disposition: Home Activity: as tolerated Diet: as tolerated Patient Instructions: Antibiotic Form Patient Language: Nigerian Stand Alone Forms: General Discharge Information Follow-up/Referrals: Andreas Holloway MD [Physician] - Call for Appointment Sandeep Berry MD [Primary Care Provider] - Call for Appointment Discharge Medications: New acetaminophen 325 mg Tablet 650 mg PO Q4H PRN (Reason: Mild Pain (1-3) Or Fever) Qty: 30 0RF No Action No Home Medications Date of admission: 03/01/25 10:49 Primary Care Provider: Sandeep Berry Admitting Provider: Vilma Preciado Attending physician on admission: Vilma Preciado Condition: Improved Care Plan Goals: check your blood pressure and heart rate regularly and report to PCP follow with PCP in one week. follow with urology as outpatient
== END 2025-03-01 18:30 | disposition home or self-care (01) ==
PROVIDERS: Urology; Admitting Provider Internal Medicine; PCP Internal Medicine; Visit Provider Internal Medicine
PROC: (CPT 52352; principal; 2025-03-01 12:00)
DX: N13.2 Hydronephrosis with renal and ureteral calculous obstruction (principal); N17.9 Acute kidney failure, unspecified; F17.290 Nicotine dependence, other tobacco product, uncomplicated
CPT/HCPCS: 52332; 74420; C1758; C1769; C2617; G0378; G0379; J0690; J2003; J2250; J2405; J2704; J3010; J7120; Q9966

== ENCOUNTER 2025-03-13 17:49 | Outpatient (CLI) | payer OTHER, SELFPAY ==
--- OUTSIDE RECORDS SUMMARY | 2025-03-13 17:53 | XMS_ITS | Patient Health Record ---
Author Organization [facility] Address [address] [place] [address] Care Team Providers Care Contingents Supervisor Name Role Phone Dee Smith Primary Care Provider Eddie Boyer Unavailable [phone] Reason For Referral No Information Medications Medication [...] Insured Coverage Start Date Coverage End Date [facility] Attn Claims Department [address] [place] [address] [id number] Miri Kemp Self - patient is the insured 4
--- OUTSIDE RECORDS SUMMARY | 2025-03-13 17:53 | XMS_ITS | Clinical Summary ---
Author Organization [facility] Address [address] [place] [address] Care Team Providers Care Transmitter Chief Name Role Phone Unavailable Primary Care Provider Unavailabl e Source Comments [facility],non-owned Affiliates and Associated Physician Practices is amultiple site organization consisting of ambulatory clinics and hospital sitesin [place], [place], [place] and [place]. This disclosure is being madepursuant to the Care Everywhere program and may not contain all information available regarding this patient. Last updated 18.[facility] Allergies No known active allergies Medications * Be aware that medications may not be up to date on this document. Alwaysverify current medications with the patient. 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
--- OUTSIDE RECORDS SUMMARY | 2025-03-13 17:54 | XMS_ITS ---
Author Organization [facility] Address [address] [place] [address] Care Team Providers Care Intermediate Frame Tender Name Role Phone Dee Smith Primary Care Provider [phone] Eddie Boyer [phone] REASON FOR VISIT On U- Physical Medications Medication SIG (Take, Route, Frequency, Duration) Notes Start Date End Date Status hydrOXYzine Pamoate 25 MG 2 Capsules Ora lly every 4 hours Active Multivitamin - 1 tablet Orally Once a day Active Encounters Encounter Location Date Provider Diagnosis [place] [address] [place] [address] 05/23/2024 Eddie Boyer Plan Of Treatment No Information Progress Notes * Miri RYANDOB:1995 (29 yo F)Acc No.[id number]:05/23/2024 UNLOCKED PROGRESS NOTE Patient: Miri HAWKINS Provider: Cassandra Boyer MSN, CLERICAL ADJUDICATOR, MANAGER PACKAGE-C :1995 A ge:28 Y S ex:Female Date:05/23/2024 Phone: Address:[address] [place], [place] [id number] Pcp:Dee Smith Subjective: * Chief Complaints: * 1 . On CRU- Physical. * Medical History: * Medications: T aking hydrOXYzine Pamoate 25 MG Capsule 2 Capsules Orally every 4 hours , Taking Multivitamin - Tablet 1 tablet Orally Once a day Objective: * Vitals: Assessment: Plan: * Treatment: * * Electronic signature of Annabelle Boyer APRN, [id number] on 03/13/2025 at 05:53 PM CDT Sign off status: Pending * Provider: Cassandra Boyer, MSN, CLERICAL ADJUDICATOR, MANAGER PACKAGE-C Date: 0 05/23/2024 Generated for Lamberto valentine/Ahmet/Randallitting on: 0 03/13/2025 05:53 PM CDT
--- OUTSIDE RECORDS SUMMARY | 2025-03-13 17:54 | XMS_ITS | Encounter Summary ---
Author Organization [facility] Address [address] [place] [address] Phone Care Team Providers Care Sales/Marketing Name Role Phone Sandeep Berry MD Primary Care Provider Reason for Referral * Radiology Services (Routine) - Closed Specialty Diagnoses / Procedures Referred By Saravanan gonzalez Referred To Contact Radiology Diagnoses Kidney stone Procedures XR ABDOMEN KUB FLAT PLATE Will Barreto MD [address] [address] Phone: tel: fax: Referral ID Status Reason Start Date Expiration Date Visits Re quested Visits Authorized [id number] Closed 03/06/2025 1 1 Reason for Visit * Radiology Services (Routine) - Closed Specialty Diagnoses / Procedures Referred By Saravanan gonzalez Referred To Contact Radiology Diagnoses Kidney stone Procedures XR ABDOMEN KUB FLAT PLATE Will Barreto MD [address] [address] Phone: tel: fax: Referral ID Status Reason Start Date Expiration Date Visits Re quested Visits Authorized [id number] Closed 03/06/2025 1 1 Encounter Details Date Type Department Care Team (Latest Contact Info) Description 03/11/2025 5:00 PM CDT - 03/11/2025 11:59 PM CDT Hospital Encounter [facility] Diagnostic Radiology [address] [place] [address] Will Barreto MD [address] [place], [facility] [address] [place] [address] Discharge Disposition: Discharged to home or Selfcare Social History Tobacco Use Types Packs/Day Years Used Date Smoking Tobacco: Never Assessed Comments Unknown Sex and Gender Information Value Date Recorded Sex Assigned at Not on file Legal Sex Female 1:15 PM CDT Gender Identity Not on file Sexual Orientation Not on file documented as of this encounter Plan of Treatment Pending Results Name Type Priority Associated Diagnoses Date /Time XR ABDOMEN KUB FLAT PLATE Imaging Routine Kidney stone 03/11/2025 5:15 PM CDT Scheduled Orders Name Type Priority Associated Diagnoses Orde r Schedule XR ABDOMEN KUB FLAT PLATE Imaging Routine Kidney stone 1 Occurrences starting 03/11/2025 until 03/11/2025 documented as of this encounter Visit Diagnoses Diagnosis Kidney stone Calculus of kidney documented in this encounter Care Teams Sales/Marketing Relationship Specialty Start Date End Date Sandeep Berry MD [address] [place] [address] PCP - General Internal Medicine 03/11/25 documented as of this encounter
--- OUTSIDE RECORDS SUMMARY | 2025-03-13 17:54 | XMS_ITS | Clinical Summary ---
Author Organization [facility] Address [address] [place] [address] Phone Care Team Providers Care Ornamental Metal Fabricator Apprentice Name Role Phone Sandeep Berry MD Primary Care Provider Encounters Date Type Department Care Team Description 03/13/2025 Telephone [facility] [address] [place] [phone] Jose Moss MD 03/11/2025 5:00 PM CDT - 03/11/2025 11:59 PM CDT Hospital Encounter [facility] Diagnostic Radiology [address] [place] [phone] Will Barreto MD Discharge Disposition: Discharged to home or Selfcare 03/11/2025 Travel 03/06/2025 Telephone [facility] [address] [place] [phone] Will Barreto MD from Last 3 Months Social History Tobacco Use Types Packs/Day Years Used Date Smoking Tobacco: Never Assessed Comments Unknown Sex and Gender Information Value Date Recorded Sex Assigned at Not on file Legal Sex Female 1:15 PM CDT Gender Identity Not on file Sexual Orientation Not on file Plan of Treatment Health Maintenance Due Date Last Done Comments Hepatitis C Virus (HCV) Screening 1995 TdaP Immunization 1995 Pap Smear 2016 SARS-COV-2 Immunization ( season) 2024 Influenza Immunization (Seas on Ended) 2025 06/17/2020 Respiratory Syncytial Virus (RSV) Immunization (Adult) (1 - 1-dose 75+ series) 2070 Hepatitis B Immunization Completed 996, 02/16/1996, 1995 Human Papillomavirus (HPV) Immunization Aged Out No longer eligible b ased on patient's age to complete this topic Meningococcal Immunization (ACWY) Aged Out No longer eligible b ased on patient's age to complete this topic Pneumococcal Immunization Combined Aged Out No longer eligible b ased on patient's age to complete this topic Rotavirus Immunization Aged Out No lo nger eligible based on patient's age to complete this topic Insurance MEDICAID [employer] Care Teams Ornamental Metal Fabricator Apprentice Relationship Specialty Start Date End Date Sandeep Berry MD [address] [place] [address] PCP - General Internal Medicine 03/11/25
--- OUTSIDE RECORDS SUMMARY | 2025-03-13 17:54 | XMS_ITS | Encounter Summary ---
Author Organization [facility] Address [address] [place] [address] Phone Care Team Providers Care Art Glass Setter Name Role Phone Sandeep Berry MD Primary Care Provider [phone] Encounter Details Date Type Department Care Team (Late st Contact Info) Description 03/13/2025 Telephone [facility] [address] [place] [address] Jose Moss MD [address] [address] Social History Tobacco Use Types Packs/Day Years Used Date Smoking Tobacco: Never Assessed Comments Unknown Sex and Gender Information Value Date Recorded Sex Assigned at Not on file Legal Sex Female 1:15 PM CDT Gender Identity Not on file Sexual Orientation Not on file documented as of this encounter Miscellaneous Notes * Telephone Encounter - Damaris Cash - 03/13/2025 3:38 PM CDT Patient left voicemail wanting to schedule her surgery. She can be reached at [phone] documented in this encounter Plan of Treatment Not on file documented as of this encounter Visit Diagnoses Not on filedocumented in this encounter Care Teams Art Glass Setter Relationship Specialty Start Date End Date Sandeep Berry MD [address] [place] [address] PCP - General Internal Medicine 03/11/25 documented as of this encounter
--- OUTSIDE RECORDS SUMMARY | 2025-03-13 17:54 | XMS_ITS | Encounter Summary ---
Author Organization [facility] Address [address] [place] [address] Phone Care Team Providers Care Supervisor Heading Name Role Phone Sandeep Berry MD Primary Care Provider [phone] Encounter Details Date Type Department Care Team (Late st Contact Info) Description 03/06/2025 Telephone [facility] [address] [place] [address] Will Barreto MD [address] [address] Social History Tobacco Use Types Packs/Day Years Used Date Smoking Tobacco: Never Assessed Comments Unknown Sex and Gender Information Value Date Recorded Sex Assigned at Not on file Legal Sex Female 1:15 PM CDT Gender Identity Not on file Sexual Orientation Not on file documented as of this encounter Miscellaneous Notes * Telephone Encounter - Crissy Douglass - 03/07/2025 9:29 AM CDT Pt aware of KUB order that needs to be done before scheduling. Funmi, please see message. * Telephone Encounter - Crissy Douglass - 03/06/2025 1:19 PM CDT [facility] records in media, please review and let me know what pt needs. documented in this encounter Plan of Treatment Not on file documented as of this encounter Visit Diagnoses Not on filedocumented in this encounter Care Teams Supervisor Heading Relationship Specialty Start Date End Date Sandeep Berry MD [address] [place] [address] PCP - General Internal Medicine 03/11/25 documented as of this encounter
[2025-03-13 18:02] LABS: Hematocrit 41.4 % (35.0-49.0); Hemoglobin 13.1 g/dL (12.0-15.0); Mean Corpuscular HGB Conc 31.6 g/dL (32-36); Mean Corpuscular Hemoglobin 25.4 pg (27.0-31.0); Mean Corpuscular Volume 80.4 fL (78.0-102.0); Mean Platelet Volume 9.2 fl (9.2-11.8); Platelet Count Result 305 K/mm3 (150-420); Red Blood Count 5.15 M/mm3 (4.20-5.40); White Blood Count 9.5 K/mm3 (4.8-10.8)
[2025-03-13 19:21] LABS: Alanine Aminotransferase 11 U/L (6-35); Albumin Level 4.1 g/dL (3.5-5.1); Alkaline Phosphatase 79 U/L (38-126); Anion Gap 5 mmol/L (4-12); Aspartate Amino Transferase 22 U/L (14-36); Bilirubin,Total 0.3 mg/dL (0.2-1.3); Blood Urea Nitrogen 16 mg/dL (7-17); Calcium 8.7 mg/dL (8.4-10.2); Carbon Dioxide 27 mmol/L (22-30); Chloride 106 mmol/L (98-107); Estimated Glomerular Filt Rate > 60; Glucose 82 mg/dL (65-110); Osmolality Calculated 286 mOsm/kg (285-295); Potassium 4.3 mmol/L (3.4-5.0); Sodium 138 mmol/L (137-145)
== END 2025-03-13 17:50 | disposition home or self-care (01) ==
PROVIDERS: PCP Internal Medicine; Visit Provider Nurse Practitioner Family
DX: N17.9 Acute kidney failure, unspecified (principal); N20.0 Calculus of kidney
CPT/HCPCS: 36415; 80053; 85027